=== PATIENT | male | born 1965 | race Caucasian/White ===

== ENCOUNTER 2021-03-06 08:07 | Outpatient (REF) | payer BC, SELFPAY ==
[2021-03-06 12:57] LABS: Alanine Aminotransferase 23 U/L (0-40); Albumin Level 4.3 g/dL (3.5-5.0); Alkaline Phosphatase 63 U/L (39-117); Anion Gap 10 (12-20); Aspartate Amino Transferase 22 U/L (5-37); Bilirubin Total 0.8 mg/dL (0.0-1.0); Blood Urea Nitrogen 15 mg/dL (9-16); Calcium 9.2 mg/dL (8.4-10.2); Carbon Dioxide 30 mmol/L (22-29); Chloride 101 mmol/L (96-108); Cholesterol 162 mg/dL; Estimated Glomerular Filt Rate > 60; Glucose Fasting 95 mg/dL (60-99); HDL Cholesterol 46 mg/dL; LDL Cholesterol Calculated 106 mg/dl; Potassium 4.4 mmol/L (3.3-5.1); Sodium 137 mmol/L (135-145); Total Protein 7.1 g/dL (6.5-8.0); Triglycerides 52 mg/dL
[2021-03-06 13:21] LABS: TSH reflex Free T4 1.14 uIU/mL (0.32-4.0)
== END 2021-03-06 08:08 | disposition home or self-care (01) ==
LOC: HO.HMGCLDS 08:07
PROVIDERS: PCP Nurse Practitioner Family; Visit Provider Nurse Practitioner Family
DX: R19.7 Diarrhea, unspecified (principal)
CPT/HCPCS: 36415; 80053; 80061; 84443

== ENCOUNTER 2021-06-14 04:18 | Observation (INO) | payer BC, SELFPAY ==
[2021-06-14] VITALS (11 sets, daily range): BP systolic 125–161; BP diastolic 64–91; PULSE 50–75; RESP 12–20; TEMP 36.2–36.7; O2SAT 96–100; BMI 39.0
--- NOTE | ~2021-06-14 | CT_ITS ---
EXAMINATION: CT ANGIOGRAM OF THE CHEST, ABDOMEN, AND PELVIS INDICATION: Severe pain, history of hypertension COMPARISON: Chest x-ray 10/14/2018 TECHNIQUE: 85 mL Omnipaque 350 IV contrast was utilized. Multidetector helical imaging was performed through the chest, abdomen, and pelvis per CTA protocol. Coronal and sagittal reformatted images were created at the technologist workstation. MIP images were also created. DLP: 1081 mGy-cm DOSE LOWERING TECHNIQUES: This CT examination was performed using dose optimization techniques as appropriate, variously including the following: - Automated exposure control - Adjustment of mA and/or kV according to patient size (this includes techniques or standardized protocols for targeted exams were dose is matched to indication/reason for exam; i.e. extremities or head) - Use of iterative reconstruction technique FINDINGS: Chest: No evidence of aortic dissection. Some motion artifact is noted at the aortic root. The thoracic aorta appears normal in caliber. No regions of consolidation bilaterally. No pneumothorax or pleural effusion. The visualized thyroid gland is unremarkable. There are subcentimeter mediastinal lymph nodes within the range of normal variation. Cardiac size is within normal limits; no pericardial effusion. No central pulmonary embolus identified. No axillary lymphadenopathy is present. Abdomen/Pelvis: Normal caliber aorta without evidence of dissection. Bilateral iliac artery vasculature is widely patent. The celiac, superior mesenteric, bilateral renal, and inferior mesenteric arteries are patent. The liver is homogeneous in attenuation without intrahepatic biliary ductal dilatation. Cholelithiasis is noted. The spleen, pancreas, and adrenal glands are within normal limits. Bilateral nephrograms are symmetric. Bilateral renal cysts are noted measuring up to 5.3 cm in the right lower pole. A 2 mm calculus is noted in the mid right kidney. No hydronephrosis. No obstructing ureteral calculi are present. The urinary bladder is unremarkable. The prostate and seminal vesicles are unremarkable. Mild colonic diverticulosis is noted. The small and large bowel are otherwise unremarkable without evidence of obstruction or pericolonic inflammatory change. The appendix is unremarkable. No free fluid or free air is identified. No retroperitoneal or pelvic lymphadenopathy is seen. There is grade 1 anterolisthesis of L4 on L5. There is facet arthropathy of the lower lumbar spine. Scattered endplate osteophytes are present. CT/CT angio abdomen pelvis IMPRESSION: 1. No evidence of aortic dissection. 2. Cholelithiasis. 3. Tiny right renal calculus without hydronephrosis.
[2021-06-14 04:55] LABS: Basophils Percent Auto 0.3 % (0-2); Eosinophils Absolute Auto 0.1 X10*3/uL (0.0-0.4); Hematocrit 47.5 % (42-52); Hemoglobin 16.9 g/dl (14.0-18.0); Imm Gran Abs Auto 0.03 X10*3/uL (0.00-0.03); Imm Gran Pct Auto 0.5 % (0.0-0.4); Lymphocytes Absolute Auto 0.7 X10*3/uL (1.2-4.9); Lymphocytes Percent Auto 12.2 % (20-40); MANUAL DIFF FLAG NO; Mean Corpuscular HGB Conc 35.6 g/dl (31.0-36.0); Mean Corpuscular Hemoglobin 32.6 pg (27.0-33.0); Mean Corpuscular Volume 91.5 fL (80-98); Mean Platelet Volume 9.6 fL (9.4-12.4); Monocytes Absolute Auto 0.5 X10*3/uL (0.1-1.2); Monocytes Percent Auto 8.6 % (2-11); Neutrophils Absolute Auto 4.4 X10*3/uL (2.0-8.3); Neutrophils Percent Auto 77.4 % (45-73); Platelet Count 173 X10*3/uL (160-400); Red Blood Count 5.19 X10*6/uL (4.60-5.80); Red Cell Distribution Width 12.9 % (11.0-16.0); White Blood Count 5.7 X10*3/uL (4.8-10.8)
[2021-06-14] MEDS: ondansetron HCL 4 MG/2 ML VIAL IVPUSH ×2 (04:55→08:18)
[2021-06-14 05:09] LABS: COVID-19 Test Negative (Negative); IDNOW Serial# 9DD0AD1C
--- NOTE | 2021-06-14 05:09 | ED.ABDPAIN ---
HPI - Abdominal Pain General Chief Complaint: Nausea/Vomiting/Diarrhea Stated Complaint: Chest pain/abd pain Time Seen by Provider: 06/14/21 05:01 Source: patient Mode of arrival: EMS History of Present Illness HPI narrative: 56-year-old male with history of hypertension and thyroid condition is brought in with being awoken from sleep with severe mid to upper left abdominal pain with radiation into the back and into the left chest that started approximately 1:00 a.m.. Patient states that the pain has worsened and he has now developed nausea with vomiting as well as shortness of breath. Patient denies any recent procedures or changes in medication and states that he did have some mild back discomfort approximately 2 days ago. He denies any pain/numbness/tingling into either lower extremity as well as denying any upper extremity symptoms. Related Data Home Medications Medication Instructions Recorded Confirmed amlodipine 5 mg tablet 1 tab PO DAILY 06/14/21 06/14/21 levothyroxine 175 mcg tablet 1 tab PO DAILY 06/14/21 06/14/21 lisinopril 40 mg tablet 1 tab PO DAILY 06/14/21 06/14/21 omeprazole 40 mg capsule,delayed 1 cap PO DAILY 06/14/21 06/14/21 release testosterone 20 mg TOPICAL DAILY 06/14/21 06/14/21 Allergies Allergy/AdvReac Type Severity Reaction Status Date / Time No Known Allergies Allergy Verified 06/14/21 04:24 Review of Systems Review of Systems Pertinent positives and negatives as stated in HPI 10 point review systems is otherwise negative. Physical Exam Vital Signs: Vital Signs: Last Vital Signs Temp 97.9 F 06/14/21 07:32 Pulse 50 06/14/21 07:32 Resp 16 06/14/21 07:32 BP 144/66 H 06/14/21 07:32 Pulse Ox 96 06/14/21 07:32 Body Mass Index 39.0 VITAL SIGNS: Reviewed. GENERAL: Well developed, well nourished, in no acute distress. HEAD: Normocephalic/atraumatic EYES: PERRLA, EOMI OROPHARYNX: no oral lesions noted, posterior pharynx clear NECK: Supple, no adenopathy LUNGS: Normal breath sounds. No adventitious sounds or accessory muscle use. SpO2<100> CARDIOVASCULAR: Regular rate and rhythm without noted murmurs, no JVD or lower extremity edema, symmetrical pulses at radial/ulnar, femoral, DP/PT ABDOMEN: Obese, exam limited by body habitus, Soft, mid abdominal tenderness without rebound, non-distended with bowel sounds. MUSCULOSKELETAL: No tenderness, deformities, or effusions noted on gross inspection. EXTREMITIES: No cyanosis, clubbing or edema, significant bilateral lower extremity varicosity without erythema or asymmetry SKIN: Inspection of the skin reveals no rashes NEUROLOGIC: Alert and oriented x 4. Strength and sensation to light touch were grossly intact x 4. Course Course Course Narrative: 56-year-old male with history and clinical presentation suggestive of possible pancreatic etiology, but given history and current symptoms of pain with radiation to the left chest will emergently evaluate for evidence of dissection although patient is noted to have symmetrical blood pressures and although blood pressure is elevated it is not noted to be significantly elevated. Review of all investigations without acute findings other than nonobstructing kidney stone without hydronephrosis and repeat EKG remains unchanged, patient continues to require additional pain medication despite receiving GI cocktail as well as lidocaine patch for the back pain. Discussed with inpatient hospitalist who accepts admission. MDM - Abdominal Pain Lab Data Result diagrams: 06/14/21 04:47 06/14/21 04:47 Labs: Lab Results 06/14/21 06/14/21 06/14/21 Range/Units 04:47 04:47 04:47 WBC 5.7 (4.8-10.8) X10*3/uL RBC 5.19 (4.60-5.80) X10*6/uL Hgb 16.9 (14.0-18.0) g/dl Hct 47.5 (42-52) % MCV 91.5 (80-98) fL MCH 32.6 (27.0-33.0) pg MCHC 35.6 (31.0-36.0) g/dl RDW 12.9 (11.0-16.0) % Plt Count 173 (160-400) X10*3/uL MPV 9.6 (9.4-12.4) fL Immature Gran % (Auto) 0.5 H (0.0-0.4) % Neut % (Auto) 77.4 H (45-73) % Lymph % (Auto) 12.2 L (20-40) % [place] % (Auto) 8.6 (2-11) % Eos % (Auto) 1.0 (0-4) % Baso % (Auto) 0.3 (0-2) % Lymph # (Auto) 0.7 L (1.2-4.9) X10*3/uL [place] # (Auto) 0.5 (0.1-1.2) X10*3/uL Eos # (Auto) 0.1 (0.0-0.4) X10*3/uL Baso # (Auto) 0.0 (0.0-0.2) X10*3/uL Abs Immat Gran (auto) 0.03 (0.00-0.03) X10*3/uL Absolute Neuts (auto) 4.4 (2.0-8.3) X10*3/uL Absolute Nucleated RBC 0.000 (0.0-0.012) X10*3/uL Nucleated RBC % (auto) 0.0 (0.0-0.2) /100WBC Sodium 136 (135-145) mmol/L Potassium 4.3 (3.3-5.1) mmol/L Chloride 101 (96-108) mmol/L Carbon Dioxide 22 (22-29) mmol/L Anion Gap 17 (12-20) BUN 13 (9-16) mg/dL Creatinine 1.30 (0.5-1.4) mg/dL Estim Creat Clear Calc 85.1 Estimated GFR 57 Random Glucose 156 H (60-115) mg/dL Lactic Acid (0.5-2.0) mmol/L Lactic Acid Fup @ 2Hr (0.5-2.0) mmol/L Calcium 9.8 D (8.4-10.2) mg/dL Total Bilirubin 0.7 (0.0-1.0) mg/dL Direct Bilirubin 0.3 (0.0-0.5) mg/dL AST 21 (5-37) U/L ALT 24 (0-40) U/L Alkaline Phosphatase 75 (39-117) U/L Troponin I High Sens 7.0 (<3.5-35.0) ng/L Total Protein 7.9 (6.5-8.0) g/dL Albumin 4.6 (3.5-5.0) g/dL Lipase 48 (8-78) U/L Urine Color Urine Appearance Urine pH (5.0-8.0) Ur Specific [place] (1.005-1.025) Urine Protein (NEG-TRACE) MG/DL Urine Glucose (UA) (NEG) MG/DL Urine Ketones (NEG) MG/DL Urine Blood (NEG) Urine Nitrite (NEG) Ur Leukocyte Esterase (NEG) COVID-19 ([facility]) (Negative) COVID-19 Clin Com 06/14/21 06/14/21 06/14/21 Range/Units 04:47 04:47 05:45 WBC (4.8-10.8) X10*3/uL RBC (4.60-5.80) X10*6/uL Hgb (14.0-18.0) g/dl Hct (42-52) % MCV (80-98) fL MCH (27.0-33.0) pg MCHC (31.0-36.0) g/dl RDW (11.0-16.0) % Plt Count (160-400) X10*3/uL MPV (9.4-12.4) fL Immature Gran % (Auto) (0.0-0.4) % Neut % (Auto) (45-73) % Lymph % (Auto) (20-40) % [place] % (Auto) (2-11) % Eos % (Auto) (0-4) % Baso % (Auto) (0-2) % Lymph # (Auto) (1.2-4.9) X10*3/uL [place] # (Auto) (0.1-1.2) X10*3/uL Eos # (Auto) (0.0-0.4) X10*3/uL Baso # (Auto) (0.0-0.2) X10*3/uL Abs Immat Gran (auto) (0.00-0.03) X10*3/uL Absolute Neuts (auto) (2.0-8.3) X10*3/uL Absolute Nucleated RBC (0.0-0.012) X10*3/uL Nucleated RBC % (auto) (0.0-0.2) /100WBC Sodium (135-145) mmol/L Potassium (3.3-5.1) mmol/L Chloride (96-108) mmol/L Carbon Dioxide (22-29) mmol/L Anion Gap (12-20) BUN (9-16) mg/dL Creatinine (0.5-1.4) mg/dL Estim Creat Clear Calc Estimated GFR Random Glucose (60-115) mg/dL Lactic Acid 3.2 H* (0.5-2.0) mmol/L Lactic Acid Fup @ 2Hr (0.5-2.0) mmol/L Calcium (8.4-10.2) mg/dL Total Bilirubin (0.0-1.0) mg/dL Direct Bilirubin (0.0-0.5) mg/dL AST (5-37) U/L ALT (0-40) U/L Alkaline Phosphatase (39-117) U/L Troponin I High Sens (<3.5-35.0) ng/L Total Protein (6.5-8.0) g/dL Albumin (3.5-5.0) g/dL Lipase (8-78) U/L Urine Color YELLOW Urine Appearance CLEAR Urine pH 7.5 (5.0-8.0) Ur Specific [place] 1.010 (1.005-1.025) Urine Protein TRACE (NEG-TRACE) MG/DL Urine Glucose (UA) NEG (NEG) MG/DL Urine Ketones 15 (NEG) MG/DL Urine Blood NEG (NEG) Urine Nitrite NEG (NEG) Ur Leukocyte Esterase NEG (NEG) COVID-19 ([facility]) Negative (Negative) COVID-19 Clin Com See Note 06/14/21 Range/Units 07:15 WBC (4.8-10.8) X10*3/uL RBC (4.60-5.80) X10*6/uL Hgb (14.0-18.0) g/dl Hct (42-52) % MCV (80-98) fL MCH (27.0-33.0) pg MCHC (31.0-36.0) g/dl RDW (11.0-16.0) % Plt Count (160-400) X10*3/uL MPV (9.4-12.4) fL Immature Gran % (Auto) (0.0-0.4) % Neut % (Auto) (45-73) % Lymph % (Auto) (20-40) % [place] % (Auto) (2-11) % Eos % (Auto) (0-4) % Baso % (Auto) (0-2) % Lymph # (Auto) (1.2-4.9) X10*3/uL [place] # (Auto) (0.1-1.2) X10*3/uL Eos # (Auto) (0.0-0.4) X10*3/uL Baso # (Auto) (0.0-0.2) X10*3/uL Abs Immat Gran (auto) (0.00-0.03) X10*3/uL Absolute Neuts (auto) (2.0-8.3) X10*3/uL Absolute Nucleated RBC (0.0-0.012) X10*3/uL Nucleated RBC % (auto) (0.0-0.2) /100WBC Sodium (135-145) mmol/L Potassium (3.3-5.1) mmol/L Chloride (96-108) mmol/L Carbon Dioxide (22-29) mmol/L Anion Gap (12-20) BUN (9-16) mg/dL Creatinine (0.5-1.4) mg/dL Estim Creat Clear Calc Estimated GFR Random Glucose (60-115) mg/dL Lactic Acid (0.5-2.0) mmol/L Lactic Acid Fup @ 2Hr 3.3 H* (0.5-2.0) mmol/L Calcium (8.4-10.2) mg/dL Total Bilirubin (0.0-1.0) mg/dL Direct Bilirubin (0.0-0.5) mg/dL AST (5-37) U/L ALT (0-40) U/L Alkaline Phosphatase (39-117) U/L Troponin I High Sens (<3.5-35.0) ng/L Total Protein (6.5-8.0) g/dL Albumin (3.5-5.0) g/dL Lipase (8-78) U/L Urine Color Urine Appearance Urine pH (5.0-8.0) Ur Specific [place] (1.005-1.025) Urine Protein (NEG-TRACE) MG/DL Urine Glucose (UA) (NEG) MG/DL Urine Ketones (NEG) MG/DL Urine Blood (NEG) Urine Nitrite (NEG) Ur Leukocyte Esterase (NEG) COVID-19 ([facility]) (Negative) COVID-19 Clin Com ECG Data Attestation: I personally reviewed and interpreted this ECG as follows: Prior ECG tracings: not available for review Interpretation: Normal sinus rhythm, HR -72, no STEMI, SC/QRS/QTC are within normal limits. Discharge Plan Discharge Clinical Impression: Intractable abdominal pain, Nausea & vomiting, Acidosis, lactic Patient Disposition: Admitted As Inpatient [facility] Past Medical History Source: nursing notes reviewed Medical History Hypertension Hypogonadism Hypothyroid CANDY (obstructive sleep apnea) Social History Social History Alcohol intake: current Alcohol intake frequency: a few times a week Patient Tobacco Use Status: Never used Tobacco Use of substances other than those prescribed or required for medical reasons: No Advance Directives: No Advance Directives Information Provided: Yes
[2021-06-14 05:11] LABS: Lactic Acid 3.2 mmol/L (0.5-2.0)
[2021-06-14] MEDS: fentaNYL citrate/PF 100 MCG/2 ML VIAL 25 MCG IVPUSH (05:13)
[2021-06-14 05:22] LABS: Alanine Aminotransferase 24 U/L (0-40); Albumin Level 4.6 g/dL (3.5-5.0); Alkaline Phosphatase 75 U/L (39-117); Anion Gap 17 (12-20); Aspartate Amino Transferase 21 U/L (5-37); Bilirubin Direct 0.3 mg/dL (0.0-0.5); Bilirubin Total 0.7 mg/dL (0.0-1.0); Blood Urea Nitrogen 13 mg/dL (9-16); Calcium 9.8 mg/dL (8.4-10.2); Carbon Dioxide 22 mmol/L (22-29); Chloride 101 mmol/L (96-108); Creatinine Clr Calc Pharmacy 85.1; Estimated Glomerular Filt Rate 57; Glucose Random 156 mg/dL (60-115); Lipase 48 U/L (8-78); Potassium 4.3 mmol/L (3.3-5.1); Sodium 136 mmol/L (135-145); Total Protein 7.9 g/dL (6.5-8.0)
--- NOTE | 2021-06-14 05:35 | PC.NURSE ---
Pt to ED CT on painter and grader cork with this RN. CT images obtained; pt vomited x [address] room. Pt returned to room and returned to bedside cardiac monitoring by this RN without incidence. Pt continues to c/o pain 05/28, Dr Delgadillo to be made aware.
[2021-06-14] MEDS: iohexoL 350 MG/ML 100 ML INFUS..BTL 85 ML IV (05:47)
[2021-06-14 06:01] LABS: Appearance Urine CLEAR; Color Urine YELLOW; Glucose Urine UA NEG (NEG); Leukocyte Esterase Urine NEG (NEG); Nitrite Urine NEG (NEG); PH 7.5 (5.0-8.0); Urine Blood NEG (NEG); Urine Ketones 15 MG/DL (NEG); Urine Protein TRACE MG/DL (NEG-TRACE)
[2021-06-14] MEDS: Ketorolac Tromethamine 15 MG/ML VIAL IVPUSH (06:02)
--- NOTE | 2021-06-14 06:22 | PC.NURSE ---
Pt rang call calli. This RN to bedside. Pt requesting to use urinal. urinal provided. Pt also reporting the meds didn't work, appears uncomfortable. Dr Delgadillo made aware.
[2021-06-14 06:53] LABS: Reflex Lactate? Lactic Acid Added
[2021-06-14] MEDS: Lidocaine HCl Viscous 2 % 15 ML SOLUTION 10 ML MUCOUS MEM (07:10)
[2021-06-14] MEDS: Lidocaine 4 % Patch ADH..PATCH 1 PATCH TRANSDERMA (07:10)
[2021-06-14] MEDS: Magnesium Hydrox/Alum Hydrox 30 ML ORAL.SUSP PO (07:10)
[2021-06-14 07:50] LABS: ~Lactic Acid-LAB USE ONLY 3.3 mmol/L (0.5-2.0)
--- NOTE | 2021-06-14 07:54 | ECG_ITS ---
Test Reason : VOMITTING,ABD PAIN Blood Pressure : / mmHG Vent. Rate : 072 BPM Atrial Rate : 072 BPM P-R Int : 172 ms QRS Dur : 104 ms QT Int : 394 ms P-R-T Axes : 066 006 058 degrees QTc Int : 431 ms Sinus rhythm with occasional Premature ventricular complexes Otherwise normal ECG No previous ECGs available Referred By: Katlin Delgadillo Electronically Signed By:TORITO HEATH
[2021-06-14] MEDS: 0.9 % Sodium Chloride 1,000 ML 999 ML IV (08:09)
--- NOTE | 2021-06-14 08:33 | ECG_ITS ---
Test Reason : VOMITING Blood Pressure : / mmHG Vent. Rate : 065 BPM Atrial Rate : 065 BPM P-R Int : 174 ms QRS Dur : 102 ms QT Int : 406 ms P-R-T Axes : 058 -08 056 degrees QTc Int : 422 ms Sinus rhythm with occasional Premature ventricular complexes Otherwise normal ECG When compared with ECG of 14-JUN-2021 04:31, No significant change was found Referred By: Katlin Delgadillo Electronically Signed By:TORITO HEATH
[2021-06-14] MEDS: HYDROmorphone HCl 0.5 MG/0.5 ML SYRINGE IVPUSH (09:08)
[2021-06-14 09:15] LABS: Troponin-I High Sensitivity 6.8 ng/L (<3.5-35.0)
[2021-06-14 09:18] LABS: Reflex Lactate? 2 Y
[2021-06-14 10:38] LABS: ~Lactic Acid-LAB USE ONLY 1.8 mmol/L (0.5-2.0)
[2021-06-14 12:59] LABS: Amphetamine Screen Urine Not Detected (Not Detect); Barbiturates, Urine Not Detected (Not Detect); Benzodiazepines Screen Urine Not Detected (Not Detect); Cannabinoid Screen Urine Not Detected (Not Detect); Cocaine Screen Urine Not Detected (Not Detect); Fentanyl, urine Not Detected (Not Detect); Opiate Screen Urine Not Detected (Not Detect); Phencyclidine Screen Urine Not Detected (Not Detect)
--- NOTE | 2021-06-14 13:00 | P.HPHOSP_ITS ---
History of Present Illness Date of Service: 06/14/21 Chief Complaint: Abdominal pain, vomiting A 56 years old male with PMH of HTN and hypothyroidism came to the hospital for evaluation of abdominal pain associated with nausea and vomiting. The patient reported he was awaken up during the sleep with severe pain on the left side of his abdomen radiating to his back and going up to his chest wall associated with nausea and dry heaving. He could not tolerate the pain my see came to the emergency were he was evaluated with blood test and imaging. He reports this is the 1st time this is happening to him. He reports having chronic left-sided back pain. He denies any fever, chills, added, difficulty breathing, cough, urinary symptoms or change in bowel habit In the emergency CTA of chest, abdomen pelvis were negative for any acute findings to suggest a pain but reported small kidney stone with no hydronep hrosis or obstruction. His symptoms were controlled with IV medication with fair response. To be ad mitted for further evaluation and management. Review of Systems Review of Systems: No fever, chills or weakness No chest pain, palpitation No shortness of breath or coughing Lower and left-sided abdominal pain, associated with nausea or vomiting No urinary symptoms No any rash or wounds PMFSH Medical History Hypertension Hypogonadism Hypothyroid CANDY (obstructive sleep apnea) Social History Alcohol intake: current Alcohol intake frequency: a few times a week Patient Tobacco Use Status: Never used Tobacco Use of substances other than those prescribed or required for medical reasons: No Advance Directives: No Advance Directives Information Provided: Yes Meds Allergies Allergy/AdvReac Type Severity Reaction Status Date / Time No Known Allergies Allergy Verified 06/14/21 04:24 Active Medications: Current Medications Generic Name Dose Route Start Last Admin Trade Name Freq PRN Reason Stop Dose Admin Acetaminophen 650 mg 06/14/21 12:55 Acetaminophen 325 Mg Tablet PO Q6H PRN Pain, Mild (Pain Scale 1-3) Amlodipine Besylate 5 mg 06/15/21 09:00 Amlodipine Besylate 5 Mg Tablet PO DAILY [facility] Protocol Dextrose/Sodium Chloride 1,000 mls @ 100 mls/hr 06/14/21 13:00 D5ns IVCONT 06/15/21 08:59 .Q10H [facility] Ketorolac Tromethamine 30 mg 06/14/21 12:55 Ketorolac Tromethamine 30 Mg/Ml Vial IVPUSH 06/19/21 12:54 Q6H PRN Pain, Moderate (Pain Scale 4-6 Levothyroxine Sodium 175 mcg 06/15/21 09:00 Levothyroxine Sodium 175 Mcg Tablet PO DAILY [facility] Lisinopril 40 mg 06/15/21 09:00 Lisinopril 40 Mg Tablet PO DAILY [facility] Protocol Morphine Sulfate 4 mg 06/14/21 12:55 Morphine Sulfate 4 Mg/Ml Cartridge IVPUSH Q4H PRN Pain, Severe (Pain Scale 7-10) Protocol Omeprazole 40 mg 06/15/21 09:00 Omeprazole 40 Mg Capsule.Dr PO DAILY [facility] Ondansetron HCl 4 mg 06/14/21 12:55 Ondansetron Hcl 4 Mg/2 Ml Vial IVPUSH Q8H PRN Nausea and Vomiting Rivaroxaban 10 mg 06/15/21 09:00 Rivaroxaban 10 Mg Tablet PO DAILY [facility] Sodium Chloride 3 ml 06/14/21 16:00 0.9 % Sodium Chloride Flush 3 Ml Syringe IVFLUSH QSNDFT [facility] Home Medications Medication Instructions Recorded Confirmed Last Taken Type amlodipine 5 mg tablet 1 tab PO DAILY 06/14/21 06/14/21 Unknown History levothyroxine 175 mcg tablet 1 tab PO DAILY 06/14/21 06/14/21 Unknown History lisinopril 40 mg tablet 1 tab PO DAILY 06/14/21 06/14/21 Unknown History omeprazole 40 mg capsule,delayed 1 cap PO DAILY 06/14/21 06/14/21 Unknown History release testosterone 20 mg TOPICAL DAILY 06/14/21 06/14/21 Unknown History Physical Exam Vital Signs and Narrative: Vital Signs: Last Vital Signs Temp 97.9 F 06/14/21 07:32 Pulse 68 06/14/21 09:07 Resp 18 06/14/21 09:07 BP 158/90 H 06/14/21 09:07 Pulse Ox 100 06/14/21 09:07 Body Mass Index 39.0 Const: Other: Constitutional : Alert, oriented, not in distress Neck : Normal inspection, Supple Cardiovascular : RRR, S1 S2, no lower extremity edema Respiratory : Good bilateral air entry, no crackles, wheezes or rhonchi Gastrointestinal: soft, lax, Normal bowel sounds, mild generalized tenderness with deep palpation, no surgical signs, negative McBurney and Sun signs. Skin : Warm, Dry Neurological : Alert & oriented x3, No focal deficit Results Labs CBC and Chem 7: 06/14/21 04:47 06/14/21 04:47 Labs: Laboratory Results - last 24 hr 06/14/21 06/14/21 06/14/21 04:47 04:47 04:47 MCV 91.5 MCH 32.6 MCHC 35.6 RDW 12.9 Plt Count 173 MPV 9.6 Immature Gran % (Auto) 0.5 H Neut % (Auto) 77.4 H Lymph % (Auto) 12.2 L [place] % (Auto) 8.6 Eos % (Auto) 1.0 Baso % (Auto) 0.3 Lymph # (Auto) 0.7 L [place] # (Auto) 0.5 Eos # (Auto) 0.1 Baso # (Auto) 0.0 Abs Immat Gran (auto) 0.03 Absolute Neuts (auto) 4.4 Absolute Nucleated RBC 0.000 Nucleated RBC % (auto) 0.0 Anion Gap 17 Estim Creat Clear Calc 85.1 Estimated GFR 57 Random Glucose 156 H Lactic Acid Lactic Acid Fup @ 2Hr Lactic Acid Fup @ 4Hr Calcium 9.8 D Total Bilirubin 0.7 Direct Bilirubin 0.3 AST 21 ALT 24 Alkaline Phosphatase 75 Troponin I High Sens 7.0 Total Protein 7.9 Albumin 4.6 Lipase 48 Urine Color Urine Appearance Urine pH Ur Specific [place] Urine Protein Urine Glucose (UA) Urine Ketones Urine Blood Urine Nitrite Ur Leukocyte Esterase Urine Opiates Screen Urine Fentanyl Screen Ur Barbiturates Screen Ur Phencyclidine Scrn Ur Amphetamines Screen U Benzodiazepines Scrn Urine Cocaine Screen U Marijuana (THC) Screen COVID-19 ([facility]) COVID-19 Clin Com 06/14/21 06/14/21 06/14/21 04:47 04:47 05:45 MCV MCH MCHC RDW Plt Count MPV Immature Gran % (Auto) Neut % (Auto) Lymph % (Auto) [place] % (Auto) Eos % (Auto) Baso % (Auto) Lymph # (Auto) [place] # (Auto) Eos # (Auto) Baso # (Auto) Abs Immat Gran (auto) Absolute Neuts (auto) Absolute Nucleated RBC Nucleated RBC % (auto) Anion Gap Estim Creat Clear Calc Estimated GFR Random Glucose Lactic Acid 3.2 H* Lactic Acid Fup @ 2Hr Lactic Acid Fup @ 4Hr Calcium Total Bilirubin Direct Bilirubin AST ALT Alkaline Phosphatase Troponin I High Sens Total Protein Albumin Lipase Urine Color YELLOW Urine Appearance CLEAR Urine pH 7.5 Ur Specific [place] 1.010 Urine Protein TRACE Urine Glucose (UA) NEG Urine Ketones 15 Urine Blood NEG Urine Nitrite NEG Ur Leukocyte Esterase NEG Urine Opiates Screen Urine Fentanyl Screen Ur Barbiturates Screen Ur Phencyclidine Scrn Ur Amphetamines Screen U Benzodiazepines Scrn Urine Cocaine Screen U Marijuana (THC) Screen COVID-19 ([facility]) Negative COVID-19 Clin Com See Note 06/14/21 06/14/21 06/14/21 05:45 07:15 08:43 MCV MCH MCHC RDW Plt Count MPV Immature Gran % (Auto) Neut % (Auto) Lymph % (Auto) [place] % (Auto) Eos % (Auto) Baso % (Auto) Lymph # (Auto) [place] # (Auto) Eos # (Auto) Baso # (Auto) Abs Immat Gran (auto) Absolute Neuts (auto) Absolute Nucleated RBC Nucleated RBC % (auto) Anion Gap Estim Creat Clear Calc Estimated GFR Random Glucose Lactic Acid Lactic Acid Fup @ 2Hr 3.3 H* Lactic Acid Fup @ 4Hr Calcium Total Bilirubin Direct Bilirubin AST ALT Alkaline Phosphatase Troponin I High Sens 6.8 Total Protein Albumin Lipase Urine Color Urine Appearance Urine pH Ur Specific [place] Urine Protein Urine Glucose (UA) Urine Ketones Urine Blood Urine Nitrite Ur Leukocyte Esterase Urine Opiates Screen Not Detected Urine Fentanyl Screen Not Detected Ur Barbiturates Screen Not Detected Ur Phencyclidine Scrn Not Detected Ur Amphetamines Screen Not Detected U Benzodiazepines Scrn Not Detected Urine Cocaine Screen Not Detected U Marijuana (THC) Screen Not Detected COVID-19 ([facility]) COVID-19 Clin Com 06/14/21 10:06 MCV MCH MCHC RDW Plt Count MPV Immature Gran % (Auto) Neut % (Auto) Lymph % (Auto) [place] % (Auto) Eos % (Auto) Baso % (Auto) Lymph # (Auto) [place] # (Auto) Eos # (Auto) Baso # (Auto) Abs Immat Gran (auto) Absolute Neuts (auto) Absolute Nucleated RBC Nucleated RBC % (auto) Anion Gap Estim Creat Clear Calc Estimated GFR Random Glucose Lactic Acid Lactic Acid Fup @ 2Hr Lactic Acid Fup @ 4Hr 1.8 Calcium Total Bilirubin Direct Bilirubin AST ALT Alkaline Phosphatase Troponin I High Sens Total Protein Albumin Lipase Urine Color Urine Appearance Urine pH Ur Specific [place] Urine Protein Urine Glucose (UA) Urine Ketones Urine Blood Urine Nitrite Ur Leukocyte Esterase Urine Opiates Screen Urine Fentanyl Screen Ur Barbiturates Screen Ur Phencyclidine Scrn Ur Amphetamines Screen U Benzodiazepines Scrn Urine Cocaine Screen U Marijuana (THC) Screen COVID-19 ([facility]) COVID-19 Clin Com Imaging Radiologist's Impressions: Impressions Abdomen/Pelvis CTA 06/14/21 05:01 IMPRESSION: 1. No evidence of aortic dissection. 2. Cholelithiasis. 3. Tiny right renal calculus without hydronephrosis. Chest CTA 06/14/21 05:01 IMPRESSION: 1. No evidence of aortic dissection. 2. Cholelithiasis. 3. Tiny right renal calculus without hydronephrosis. Assessment and Plan (1) Intractable abdominal pain: Status: Acute (2) Nausea & vomiting: Status: Acute (3) Acidosis, lactic: Status: Acute A 56 years old male with PMH of HTN and hypothyroidism came to the hospital for evaluation of abdominal pain associated with nausea and vomiting. Abdominal pain Intractable nausea and vomiting No clear reason identified Images negative for any acute findings, as a small stone in the right kidney could be possibly secondary to passing stone Advanced diet as tolerated Pain medication as needed Collect urine in case he passed a stone Lactic acidosis Likely secondary to dehydration and vomiting corrected with IV fluids Keep on gentle hydration for today HTN continue home medications DVT PPX Xarelto Quality Stroke Does the patient have a stroke diagnosis?: No VTE Prior VTE?: No VTE Risk Level:: Medical - moderate - high VTE Device Contraindication: Treatment Not Indicated VTE Drug Contraindication: N/A - Med Ordered
[2021-06-14] MEDS: Metoclopramide HCl 5 MG TABLET PO ×2 (16:43→21:12)
[2021-06-14] MEDS: Dextrose 5 % and 0.9 % NaCl 1,000 ML 100 ML IVCONT (16:45)
[2021-06-14] MEDS: 0.9 % Sodium Chloride Flush 3 ML SYRINGE IVFLUSH (16:54)
[2021-06-14] MEDS: Ketorolac Tromethamine 30 MG/ML VIAL IVPUSH (17:03)
[2021-06-14] MEDS: Acetaminophen 325 MG TABLET 650 MG PO (21:13)
[2021-06-15] MEDS: Dextrose 5 % and 0.9 % NaCl 1,000 ML 100 ML IVCONT (02:10)
[2021-06-15] MEDS: Levothyroxine Sodium 175 MCG TABLET PO (05:48)
[2021-06-15] MEDS: Omeprazole 40 MG CAPSULE.DR PO (05:48)
[2021-06-15 07:26] VITALS: BP 183/80; PULSE 58; RESP 20; TEMP 36.9; O2SAT 99
[2021-06-15 07:28] LABS: Anion Gap 9 (12-20); Blood Urea Nitrogen 9 mg/dL (9-16); Calcium 8.5 mg/dL (8.4-10.2); Carbon Dioxide 28 mmol/L (22-29); Chloride 104 mmol/L (96-108); Creatinine Clr Calc Pharmacy 115.2; Estimated Glomerular Filt Rate > 60; Glucose Random 126 mg/dL (60-115); Potassium 4.3 mmol/L (3.3-5.1); Sodium 137 mmol/L (135-145)
[2021-06-15 07:47] VITALS: BP 127/83
[2021-06-15 08:26] VITALS: BP 127/83; PULSE 58
[2021-06-15] MEDS: Rivaroxaban 10 MG TABLET PO (08:26)
[2021-06-15] MEDS: 0.9 % Sodium Chloride Flush 3 ML SYRINGE IVFLUSH (08:26)
[2021-06-15] MEDS: lisinopriL 40 MG TABLET PO (08:26)
[2021-06-15] MEDS: amLODIPine Besylate 5 MG TABLET PO (08:26)
[2021-06-15] MEDS: Metoclopramide HCl 5 MG TABLET PO (08:26)
--- NOTE | 2021-06-15 11:11 | P.DS_ITS ---
DS: Providers Provider Date of Service: 06/15/21 Date of admission: 06/14/21 12:53 Primary care physician: Unknown Physician DS: Diagnosis Discharge Diagnosis (1) Intractable abdominal pain: Status: Acute (2) Nausea & vomiting: Status: Acute (3) Acidosis, lactic: Status: Acute DS: Medications Discharge Medications Home Medications: Home Medications Medication Instructions Recorded Confirmed amlodipine 5 mg tablet 1 tab PO DAILY 06/14/21 06/14/21 levothyroxine 175 mcg tablet 1 tab PO DAILY 06/14/21 06/14/21 lisinopril 40 mg tablet 1 tab PO DAILY 06/14/21 06/14/21 omeprazole 40 mg capsule,delayed 1 cap PO DAILY 06/14/21 06/14/21 release testosterone 20 mg TOPICAL DAILY 06/14/21 06/14/21 Previous Rx's Medication Instructions Recorded metoclopramide HCl 5 mg tablet 5 mg PO QIDACHS PRN #14 tab 06/15/21 DS: Summary Hospital Course Hospital Course: Admission note HPI A 56 years old male with PMH of HTN and hypothyroidism came to the hospital for evaluation of abdominal pain associated with nausea and vomiting. The patient reported he was awaken up during the sleep with severe pain on the left side of his abdomen radiating to his back and going up to his chest wall associated with nausea and dry heaving.? He could not tolerate the pain my see came to the emergency were he was evaluated with blood test and imaging.? He reports this is the 1st time this is happening to him.? He reports having chroni c left-sided back pain.? He denies any fever, chills, added, difficulty breathing, cough, urinary symptoms or change in bowel habit In the emergency CTA of chest, abdomen pelvis were negative for any acute findings to suggest a pain but reported small kidney stone with no hydronephrosis or obstruction. His symptoms were controlled with IV medication with fair response.? To be admitted for further evaluation and management. Hospital course Patient was admitted through emergency for intractable nausea and vomiting associated with abdominal pain. Images for the chest, abdomen pelvis were all negative for any acute findings. Noted a small kidney stone with no obstructive symptoms. No infection was found. Patient started to improve with usage of nausea and pain medication. Pain completely resolved and he was able to tolerate diet. To be discharged home to use Reglan as needed for nausea and ibuprofen for pain next Lyme to follow-up with PCP Time Spent with Patient Time attestation: Total time spent providing and/or coordinating discharge services: Discharge coordination time: Greater than 30 minutes Quality: Stroke Does the patient have a stroke diagnosis?: No Physical Exam Vital Signs: Vital Signs: Last Vital Signs Temp 98.5 F 06/15/21 07:26 Pulse 58 06/15/21 08:26 Resp 20 06/15/21 07:26 BP 127/83 06/15/21 08:26 Pulse Ox 99 06/15/21 07:26 Body Mass Index 39.0 Const: Other: Constitutional : Alert, oriented, not in distress Neck : Normal inspection, Supple Cardiovascular : RRR, S1 S2, no lower extremity edema Respiratory : Good bilateral air entry, no crackles, wheezes or rhonchi Gastrointestinal: soft, lax, Normal bowel sounds, Non tender Skin : Warm, Dry Neurological : Alert & oriented x3, No focal deficit DS: Data Data Completed and Pending Labs on day of discharge: Laboratory Results - last 24 hr 06/14/21 06/15/21 05:45 06:25 Sodium 137 Potassium 4.3 Chloride 104 Carbon Dioxide 28 Anion Gap 9 L BUN 9 Creatinine 0.96 Estim Creat Clear Calc 115.2 Estimated GFR > 60 Random Glucose 126 H Calcium 8.5 D Urine Opiates Screen Not Detected Urine Fentanyl Screen Not Detected Ur Barbiturates Screen Not Detected Ur Phencyclidine Scrn Not Detected Ur Amphetamines Screen Not Detected U Benzodiazepines Scrn Not Detected Urine Cocaine Screen Not Detected U Marijuana (THC) Screen Not Detected Preliminary micro results at discharge 06/14/21 05:05 Blood Culture - Preliminary Blood - Venous No growth after 24 hours. 06/14/21 04:47 Blood Culture - Preliminary Blood - Venous No growth after 24 hours. Discharge Plan Discharge Patient Disposition: Home, Self-Care Discharge Diagnosis: Abdominal pain, nausea and vomiting Referrals: Physician,Unknown [Primary Care Provider] - 1 Week Discharge Medications: New metoclopramide HCl 5 mg Tablet 5 mg PO QIDACHS PRN (Reason: nausea and vomiting) Qty: 14 RF: 0 Continued levothyroxine 175 mcg tablet 1 tab PO DAILY RF: 0 amlodipine 5 mg tablet 1 tab PO DAILY RF: 0 omeprazole 40 mg capsule,delayed release(DR/EC) 1 cap PO DAILY RF: 0 lisinopril 40 mg tablet 1 tab PO DAILY RF: 0 testosterone 10 mg/0.5 gram /actuation gel in metered-dose pump 20 mg topical DAILY RF: 0 Discharge Orders: Discharge Order (Routine); Ordered 06/15/21 Ordered By: Yue Grimes Diet: advance to usual diet Activity on Discharge: As tolerated Stand Alone Forms: Patient Portal Discharge page Care Plan Goals: Read below Health Concerns: Read below Plan of Treatment: You were admitted to the hospital for observation of abdominal pain. We believe it could be a result of passing kidney stone. Treated with nausea and pain medications with good response. Assessment: Use Reglan as needed for nausea Use Motrin if needed for pain
--- NOTE | 2021-06-15 12:01 | MHC.CM.PN ---
PT DISCHARGED HOME WITH NO SERVICES PRIOR TO BEING SEEN BY CM. PT SELF ARRANGED TRANSPROTATION
== END 2021-06-15 11:45 | disposition home or self-care (01) ==
LOC: HO.ED 08:54 → HO.EDOVER 13:03 → HO.S3 13:10
PROVIDERS: Admitting Provider Student in an Organized Health Care Education/Training Program; Emergency Provider Student in an Organized Health Care Education/Training Program; Visit Provider Student in an Organized Health Care Education/Training Program
DX: R10.9 Unspecified abdominal pain (principal); R11.2 Nausea with vomiting, unspecified; E87.2 Acidosis; I10 Essential (primary) hypertension; E03.9 Hypothyroidism, unspecified; K80.20 Calculus of gallbladder without cholecystitis without obstruction; N20.0 Calculus of kidney; Z79.899 Other long term (current) drug therapy
CPT/HCPCS: 36415; 71275; 74174; 80048; 80076; 80307; 81003; 83605; 83690; 84484; 85025; 87040; 87635; 93005; 96361; 96365; 96375; 96376; 99218; 99285; J1170; J1885; J2405; J3010; Q9967

== ENCOUNTER 2021-07-01 08:37 | Outpatient (REF) | payer BC, SELFPAY ==
[2021-07-01 11:27] LABS: MANUAL DIFF FLAG NO
[2021-07-01 11:39] LABS: Basophils Percent Auto 0.3 % (0-2); Eosinophils Absolute Auto 0.2 X10*3/uL (0.0-0.4); Eosinophils Percent Auto 3.1 % (0-4); Hematocrit 45.2 % (42-52); Hemoglobin 15.1 g/dl (14.0-18.0); Imm Gran Abs Auto 0.03 X10*3/uL (0.00-0.03); Imm Gran Pct Auto 0.5 % (0.0-0.4); Lymphocytes Percent Auto 15.3 % (20-40); Mean Corpuscular HGB Conc 33.4 g/dl (31.0-36.0); Mean Corpuscular Hemoglobin 31.5 pg (27.0-33.0); Mean Corpuscular Volume 94.4 fL (80-98); Mean Platelet Volume 10.1 fL (9.4-12.4); Monocytes Absolute Auto 0.6 X10*3/uL (0.1-1.2); Monocytes Percent Auto 9.5 % (2-11); Neutrophils Absolute Auto 4.4 X10*3/uL (2.0-8.3); Neutrophils Percent Auto 71.3 % (45-73); Platelet Count 243 X10*3/uL (160-400); Red Blood Count 4.79 X10*6/uL (4.60-5.80); Red Cell Distribution Width 12.8 % (11.0-16.0); White Blood Count 6.2 X10*3/uL (4.8-10.8)
[2021-07-01 12:13] LABS: Alanine Aminotransferase 15 U/L (0-40); Albumin Level 4.1 g/dL (3.5-5.0); Alkaline Phosphatase 66 U/L (39-117); Anion Gap 15 (12-20); Aspartate Amino Transferase 15 U/L (5-37); Bilirubin Total 0.5 mg/dL (0.0-1.0); Blood Urea Nitrogen 13 mg/dL (9-16); Calcium 9.2 mg/dL (8.4-10.2); Carbon Dioxide 28 mmol/L (22-29); Chloride 99 mmol/L (96-108); Estimated Glomerular Filt Rate > 60; Glucose Random 103 mg/dL (60-115); Potassium 4.7 mmol/L (3.3-5.1); Sodium 137 mmol/L (135-145); Total Protein 6.9 g/dL (6.5-8.0)
[2021-07-01 12:26] LABS: Uric Acid 7.3 mg/dL (3.4-7.0)
== END 2021-07-01 08:38 | disposition home or self-care (01) ==
LOC: HO.HMGCLDS 08:37
PROVIDERS: PCP Nurse Practitioner Family; Visit Provider Nurse Practitioner Family
DX: M10.9 Gout, unspecified (principal)
CPT/HCPCS: 36415; 80053; 84550; 85025

== ENCOUNTER 2021-07-30 11:04 | Outpatient (REF) | payer BC, SELFPAY ==
[2021-07-30 13:56] LABS: MANUAL DIFF FLAG NO
[2021-07-30 14:00] LABS: Basophils Percent Auto 0.6 % (0-2); Eosinophils Absolute Auto 0.1 X10*3/uL (0.0-0.4); Eosinophils Percent Auto 2.8 % (0-4); Hematocrit 44.8 % (42-52); Hemoglobin 14.8 g/dl (14.0-18.0); Imm Gran Abs Auto 0.03 X10*3/uL (0.00-0.03); Imm Gran Pct Auto 0.6 % (0.0-0.4); Lymphocytes Absolute Auto 1.2 X10*3/uL (1.2-4.9); Lymphocytes Percent Auto 23.1 % (20-40); Mean Corpuscular Volume 93.9 fL (80-98); Mean Platelet Volume 10.3 fL (9.4-12.4); Monocytes Absolute Auto 0.5 X10*3/uL (0.1-1.2); Monocytes Percent Auto 9.1 % (2-11); Neutrophils Absolute Auto 3.2 X10*3/uL (2.0-8.3); Neutrophils Percent Auto 63.8 % (45-73); Platelet Count 204 X10*3/uL (160-400); Red Blood Count 4.77 X10*6/uL (4.60-5.80); Red Cell Distribution Width 13.3 % (11.0-16.0); White Blood Count 5.1 X10*3/uL (4.8-10.8)
[2021-07-30 14:18] LABS: Alanine Aminotransferase 23 U/L (0-40); Aspartate Amino Transferase 18 U/L (5-37)
[2021-07-30 14:37] LABS: Alanine Aminotransferase 23 U/L (0-40); Albumin Level 4.2 g/dL (3.5-5.0); Alkaline Phosphatase 61 U/L (39-117); Anion Gap 9 (12-20); Aspartate Amino Transferase 19 U/L (5-37); Bilirubin Total 0.2 mg/dL (0.0-1.0); Blood Urea Nitrogen 15 mg/dL (9-16); Carbon Dioxide 30 mmol/L (22-29); Chloride 102 mmol/L (96-108); Estimated Glomerular Filt Rate > 60; Glucose Random 108 mg/dL (60-115); Potassium 4.3 mmol/L (3.3-5.1); Sodium 137 mmol/L (135-145); Total Protein 6.9 g/dL (6.5-8.0); Uric Acid 6.3 mg/dL (3.4-7.0)
[2021-07-30 14:42] LABS: Prostate Specific Antigen 0.33 ng/mL (<0.05-4.0); TSH reflex Free T4 1.35 uIU/mL (0.32-4.0)
[2021-08-03 17:16] LABS: Testosterone, Free 96.4 pg/mL (35.0-155.0); Testosterone, Total 392 ng/dL (250-1100)
== END 2021-07-30 11:05 | disposition home or self-care (01) ==
LOC: HO.HMGCLDS 11:04
PROVIDERS: PCP Nurse Practitioner Family; Visit Provider Internal Medicine Endocrinology, Diabetes & Metabolism
DX: Z12.5 Encounter for screening for malignant neoplasm of prostate (principal); M10.9 Gout, unspecified; E29.1 Testicular hypofunction; E03.9 Hypothyroidism, unspecified
CPT/HCPCS: 36415; 80053; 84153; 84402; 84403; 84443; 84450; 84460; 84550; 85025

== ENCOUNTER 2021-08-21 07:57 | Outpatient (REF) | payer BC, SELFPAY ==
--- NOTE | ~2021-08-21 | US_ITS ---
EXAMINATION: BILATERAL LOWER EXTREMITY VENOUS ULTRASOUND (Reflux Exam) CLINICAL INDICATION: This a 56-year-old male with varicose veins and venous insufficiency. COMPARISON: None. TECHNIQUE: Color flow triplex imaging and compression Doppler was performed to evaluate both the deep and the superficial systems bilaterally. To evaluate the superficial system, the examination was performed in the upright position. Color-flow Doppler ultrasound and compression ultrasound were utilized. In addition, maneuvers were utilized to demonstrate reflux. FINDINGS: 1. DEEP VENOUS ULTRASOUND OF THE RIGHT LOWER EXTREMITY: Common Femoral Vein: Compressible, normal respiratory variation and augmented flow. Femoral vein: Compressible, normal color flow and augmentation. Popliteal Vein: The popliteal vein is compressible but with reflux of 868 ms. Deep Reflux: There is reflux seen in the popliteal vein.. There is no evidence of a Mckeon's cyst. 2. SUPERFICIAL ULTRASOUND WITH DOPPLER OF RIGHT LOWER EXTREMITY GREAT SAPHENOUS VEIN: Saphenofemoral junction: 0.7 cm Mid thigh: Not seen. Above knee: There is saphenous vein is not seen at this level and below. GSV REFLUX: No evidence of reflux. DUPLICATED GREAT SAPHENOUS VEIN: None SMALL SAPHENOUS VEIN: Upper: 0.6 cm Lower: 0.3 cm SSV REFLUX: There is isolated mid calf reflux of 2172 ms. There is not reflux at the junction. VEIN OF GIACOMINI: None Imaged. PERFORATORS: None Imaged VARICOSITIES: There are 0.5 cm varicose veins off the small saphenous vein with reflux of 1224 ms. There is a 0.3 cm varicose vein off the small saphenous vein with greater than 3 seconds of reflux. 3. DEEP VENOUS ULTRASOUND OF THE LEFT LOWER EXTREMITY: Common Femoral Vein: Compressible, normal respiratory variation and augmented flow. Femoral vein: Compressible, normal color flow and augmentation. Popliteal Vein: Compressible, normal augmentation. Deep Reflux: There is no evidence of reflux in the deep system in either the common femoral vein or the popliteal vein. There is no evidence of a Mckeon's cyst. 4. SUPERFICIAL ULTRASOUND WITH DOPPLER OF LEFT LOWER EXTREMITY GREAT SAPHENOUS VEIN: Saphenofemoral junction: 0.9 cm. There is greater than 3 seconds of reflux. Mid thigh: 0.9 cm. There is greater than 3 seconds of reflux. Above knee: 0.8 cm. There is greater than 3 seconds of reflux. Below knee: 0.9 cm. There is greater than 3 seconds of reflux. Mid calf: 0.7 cm. There is greater than 3 seconds of reflux. Ankle: 0.3 cm. There is grade 3 seconds of reflux. GSV REFLUX: There is reflux throughout the great saphenous vein including the saphenofemoral junction. DUPLICATED GREAT SAPHENOUS VEIN: There is a duplicated lateral great saphenous vein measures 0.7 cm at the junction without reflux. SMALL SAPHENOUS VEIN: Upper: 0.8 cm Lower: 0.6 cm SSV REFLUX: No evidence of reflux. VEIN OF GIACOMINI: None Imaged. PERFORATORS: There are 0.2 and 0.5 cm, respectively, small saphenous vein and calf perforators without reflux. VARICOSITIES: There are multiple varicose veins seen in the left leg. Off the small saphenous vein in the calf measures 0.8 cm with 776 ms of reflux. There is a cluster of varicose veins adjacent to the mid small saphenous vein and the great saphenous vein measuring 0.6 cm with 2884 ms of reflux. Varicose veins measuring 0.6 cm the proximal thigh are seen. US/US venous duplex LE BI IMPRESSION: 1. The right great saphenous vein is patent in the proximal thigh but without evidence of reflux. The remainder of the right great saphenous vein is not seen. 2. The right small saphenous vein is patent with isolated reflux in the mid calf but not at the junction. 3. There are varicose veins in the right calf which appear to extend off the small saphenous vein. 4. There is right popliteal vein reflux. Air graft 5. There is a patent left great saphenous vein with reflux throughout the vessel down the leg of greater than 3 seconds. 5. There is a patent left lateral duplicated great saphenous vein without reflux. 7. As a patent left small saphenous vein without reflux. 8. There are perforators and varicose veins in the left leg. The varicose veins demonstrate greater than 3 seconds of reflux.
== END 2021-08-21 07:58 | disposition home or self-care (01) ==
LOC: HO.US 07:57
PROVIDERS: PCP Nurse Practitioner Family; Visit Provider Surgery Vascular Surgery
DX: I83.90 Asymptomatic varicose veins of unspecified lower extremity (principal); I87.2 Venous insufficiency (chronic) (peripheral)
CPT/HCPCS: 93970

== ENCOUNTER → 2021-09-03 09:35 | Outpatient (BNVA) | payer BC, SELFPAY | PROVIDERS: PCP Nurse Practitioner Family; Visit Provider Surgery Vascular Surgery ==

== ENCOUNTER 2021-09-13 07:34 | Outpatient (REF) | payer BC, SELFPAY ==
--- NOTE | ~2021-09-13 | CT_ITS ---
EXAMINATION: CT MAXILLOFACIAL WITHOUT CONTRAST CLINICAL INFORMATION: Chronic congestion. Question polyp. COMPARISON: None. TECHNIQUE: Multidetector helical imaging was performed in the axial plane with generation of coronal and sagittal reformatted images. This CT examination was performed using dose optimization techniques as appropriate, variously including the following: *Automated exposure control *Adjustment of mA and/or kV according to patient size (this includes techniques or standardized protocols for targeted exams where dose is matched to indication/reason for exam; i.e. extremities or head) *Use of iterative reconstruction technique DLP: 115 mGy-cm. FINDINGS: The frontal sinuses are clear superiorly but opacified inferiorly with opacification of both frontoethmoidal recesses. There is mild bilateral ethmoid mucosal thickening. Both sphenoethmoidal recesses are opacified and mild mucosal thickening is present in both sphenoid sinuses. The left maxillary sinus is clear. There is trace mucosal thickening along the right maxillary sinus floor. Nasal septum is bowed towards the right with a leftward projecting septal spur. Bilateral brianna bullosa are noted. The ethmoid roofs are symmetric. The lamina papyracea are intact. There are bilateral brianna bullosa. No maxillary periapical disease is seen. The mastoid air cells and visualized middle ear cavities are well aerated. The orbits are normal. The TMJs are unremarkable. The imaged portions of the brain demonstrate no acute abnormality. CT/CT sinus wo con IMPRESSION: Opacification of the bilateral frontoethmoidal recesses and mild bilateral ethmoid mucosal thickening. Opacification of the bilateral sphenoethmoidal recesses and mild mucosal thickening in both sphenoid sinuses. Trace mucosal thickening along the right maxillary sinus floor. Rightward deviation of the nasal septum with leftward projecting septal spur.
== END 2021-09-13 07:35 | disposition home or self-care (01) ==
LOC: HO.CT 07:34
PROVIDERS: PCP Nurse Practitioner Family; Visit Provider Otolaryngology
DX: J33.9 Nasal polyp, unspecified (principal); R43.0 Anosmia
CPT/HCPCS: 70486

== ENCOUNTER → 2021-10-21 09:59 | Outpatient (REF) | payer BC, SELFPAY | LOC: HO.SL 09:59 | PROVIDERS: PCP Nurse Practitioner Family; Visit Provider Otolaryngology | DX: Z13.89 Encounter for screening for other disorder (principal) ==

== ENCOUNTER → 2021-10-25 10:06 | Outpatient (BNVA) | payer BC, SELFPAY | PROVIDERS: PCP Nurse Practitioner Family; Visit Provider Surgery Vascular Surgery | DX: I83.12 Varicose veins of left lower extremity with inflammation (principal) | CPT/HCPCS: 36475 ==

== ENCOUNTER 2021-10-28 08:17 | Outpatient (REF) | payer BC, SELFPAY ==
--- NOTE | ~2021-10-28 | US_ITS ---
EXAMINATION: US VENOUS ULTRASOUND WITH DOPPLER LOWER EXTREMITY, LEFT CLINICAL INFORMATION: Post RFA left leg COMPARISON: None TECHNIQUE: Ultrasound of the deep veins is performed from the hip to the calf with compression sonography and color and pulse Doppler assessment. Spectral analysis with color-flow imaging is performed. FINDINGS: There is occlusion of the left great saphenous vein with wall thickening compatible with recent RFA. Distal branches of the saphenous vein appear to be occluded. There does not appear to be extension into the saphenofemoral junction. There is a prominent lymph node in the left groin, likely reactive. Regarding the deep system, there is normal venous compression and respiratory variation and augmented flow. The visualized common femoral vein, superficial femoral vein, profunda femoral vein, popliteal vein, and the trifurcation region shows no evidence of deep venous thrombosis. There is no significant popliteal fossa cyst. US/US venous duplex LE IMPRESSION: Expected post treatment changes relating to left lower extremity great saphenous vein ablation. No evidence of DVT.
== END 2021-10-28 08:18 | disposition home or self-care (01) ==
LOC: HO.HMGCX 08:17
PROVIDERS: Visit Provider Surgery Vascular Surgery
DX: M79.605 Pain in left leg (principal)
CPT/HCPCS: 93971

== ENCOUNTER → 2021-10-31 09:50 | Outpatient (REF) | payer BC, SELFPAY | LOC: HO.SL 09:50 | PROVIDERS: PCP Nurse Practitioner Family; Visit Provider Otolaryngology | DX: G47.33 Obstructive sleep apnea (adult) (pediatric) (principal) | CPT/HCPCS: 95806 ==

== ENCOUNTER → 2021-11-05 09:11 | Outpatient (BNVA) | payer BC, SELFPAY | PROVIDERS: PCP Nurse Practitioner Family; Visit Provider Surgery Vascular Surgery ==

== ENCOUNTER 2021-11-15 06:32 | Day surgery (SDC) | payer BC, SELFPAY ==
[2021-11-08 14:35] VITALS: BMI 40.7
--- NOTE | 2021-11-14 09:43 | HO.ANESPROP2 ---
Documented by User: Octavia Palm NP 11/14/21 09:44 HPI - Anesthesia Eval Consult details Narrative: 56yo M for Colonoscopy PMFSH Active Problems Active Problems: All Active Problems (Updated 11/08/21 @ 14:33 by Emily Bhatt RN) Bradycardia (Acute) Screening for colon cancer (Acute) Gout (Acute) Physical exam (Acute) Screening PSA (prostate specific antigen) (Acute) Varicose veins of bilateral lower extremities with pain (Acute) Varicose veins of left lower extremity with inflammation (Acute) Past Medical History Medical History (Updated 11/08/21 @ 14:33 by Emily Bhatt RN) COVID-19 vaccine series completed Gout Hypertension Hypogonadism Hypothyroid CANDY (obstructive sleep apnea) Renal calculi Surgical History Surgical History (Updated 11/08/21 @ 14:34 by Emily Bhatt RN) No pertinent past surgical history Social History Social History Housing: House Alcohol intake: current Alcohol intake frequency: a few times a month Patient Tobacco Use Status: Never used Tobacco e-Cigarette/Vaping Use: Never Used Second Hand Smoke Exposure: No Use of substances other than those prescribed or required for medical reasons: No Have you been hit, kicked, punched, or otherwise hurt by someone within the past year? 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 [employer] Current occupational exposures/hazards: No Meds Allergies Allergy/AdvReac Type Severity Reaction Status Date / Time No Known Allergies Allergy Verified 11/05/21 09:23 Home Medications Medication Instructions Recorded Confirmed Last Taken Type levothyroxine 175 mcg tablet 175 mcg PO DAILY 06/14/21 11/08/21 11/15/21 History testosterone 20 mg TOPICAL DAILY 06/14/21 11/08/21 Unknown History ibuprofen 800 mg tablet 800 mg PO TID 11/05/21 11/08/21 Unknown History aspirin 81 mg tablet,delayed 81 mg PO DAILY 11/08/21 11/08/21 Unknown History release (Aspirin Low Dose) fluconazole 150 mg tablet 1 tab PO DAILY 11/08/21 11/08/21 Unknown History Exam Exam Date and Time: November 14, 2021 0943 Height,Weight and Vital Signs: Height 5 ft 11 in Weight 132.449 kg Pertinent Lab Results Pertinent Lab Results: Laboratory Tests 07/30/21 07/30/21 11:11 11:11 WBC 5.1 Hgb 14.8 Hct 44.8 Plt Count 204 Sodium 137 Potassium 4.3 Chloride 102 Carbon Dioxide 30 H BUN 15 Creatinine 0.90 Narrative Narrative: EKG 05/2021 Vent. Rate : 065 BPM ? ? Atrial Rate : 065 BPM ?? P-R Int : 174 ms? QRS Dur : 102 ms ? ? QT Int : 406 ms ? ? ? P-R-T Axes : 058 -08 056 degrees ?? QTc Int : 422 ms ? Sinus rhythm with occasional Premature ventricular complexes Otherwise normal ECG When compared with ECG of 14-JUN-2021 04:31, No significant change was found Assessment and Plan Assessment Anesthesia Assessment: Chart Reviewed Documented by User: Geni Grewal MD 11/15/21 07:19 [facility] Past Medical History Medical History (Updated 11/08/21 @ 14:33 by Emily Bhatt RN) COVID-19 vaccine series completed Gout Hypertension Hypogonadism Hypothyroid CANDY (obstructive sleep apnea) Renal calculi Family History Family history of problems with anesthesia: No Surgical History Surgical History (Updated 11/08/21 @ 14:34 by Emily Bhatt RN) No pertinent past surgical history History of Problems with Anesthesia: No Social History Social History Housing: House Alcohol intake: current Alcohol intake frequency: a few times a month Patient Tobacco Use Status: Never used Tobacco e-Cigarette/Vaping Use: Never Used Second Hand Smoke Exposure: No Use of substances other than those prescribed or required for medical reasons: No Have you been hit, kicked, punched, or otherwise hurt by someone within the past year? 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 [employer] Current occupational exposures/hazards: No Meds Allergies Allergy/AdvReac Type Severity Reaction Status Date / Time No Known Allergies Allergy Verified 11/05/21 09:23 Home Medications Medication Instructions Recorded Confirmed Last Taken Type levothyroxine 175 mcg tablet 175 mcg PO DAILY 06/14/21 11/08/21 11/15/21 History testosterone 20 mg TOPICAL DAILY 06/14/21 11/08/21 Unknown History ibuprofen 800 mg tablet 800 mg PO TID 11/05/21 11/08/21 Unknown History aspirin 81 mg tablet,delayed 81 mg PO DAILY 11/08/21 11/08/21 Unknown History release (Aspirin Low Dose) fluconazole 150 mg tablet 1 tab PO DAILY 11/08/21 11/08/21 Unknown History Exam Airway Mallampati Class: III TM Dist: >3cm Neck ROM: Full Assessment and Plan Assessment Anesthesia Assessment: Anesthesia Plan Discussed Final Anesthetic Review Family History of Problems with Anesthesia: No History of Problems with Anesthesia: No NPO: Yes ASA Class: III Final Preanesthetic Review: No Changes in Pt Med Stat, Meds/Allgs Chart Reviewed, Consent Obtained/Reviewed and Anes Risks/Benef Reviewed Patient Risk: Intermediate Procedure Risk: Intermediate Anesthetic Plan Anesthetic Plan: MAC: Disposition: Standard PACU
[2021-11-15 06:46] VITALS: BP 150/93; PULSE 69; RESP 16; TEMP 37.3; O2SAT 96
[2021-11-15] MEDS: Lactated Ringers 1,000 ML 100 ML IVCONT (07:01)
--- NOTE | 2021-11-15 07:34 | MHC.SHP ---
Pre-Procedural Eval Section A Date of Service: 11/15/21 Section B Chief Complaint: screening Details of Present Illness: See H&P no changes Relevant Family History (Specify if Yes): No Relevant Social History: None Present Medications: see Short Stay Collaborative assessment Medical History: No relevant PMH History of Previous Operations: No relevant previous surgery Allergies: Allergies Allergy/AdvReac Type Severity Reaction Status Date / Time No Known Allergies Allergy Verified 11/05/21 09:23 Review of Systems Sugical H&P ROS: Negative: Constitution, Cardiovascular, Respiratory, Neurological, Psychiatric, Hem-Onc, Allergic/Immunologic, Gastrointestinal, Genitourinary, Musculoskeletal, Integumentary, Endocrine and Eyes/Ears/Nose/Throat Exam Surgical H&P Exam: Normal: HEENT, Normal: Heart, Normal: Lungs, Normal: Extremities, Normal: Abdomen, Normal: Skin and Normal: Neurological Plan I have reviewed the history and physical and performed a pertinent physical examination on my patient. No changes have occurred unless specified.
[2021-11-15 08:15] VITALS: BP 131/62; PULSE 67; RESP 18; TEMP 37.3; O2SAT 98
--- NOTE | 2021-11-15 08:20 | PM.OP ---
Brief Operative Note Date of Service: 11/15/21 Pre-op diagnosis: screening Post-op diagnosis: same Procedure: colonosocpy Surgeon: Vivek Keller Anesthesia: MAC Was an Fashion Styling Intern used for this Procedure?: No Estimated blood loss (mL): 0 Pathology: none sent Condition: stable Disposition: PACU
[2021-11-15 08:30] VITALS: BP 121/67; PULSE 63; RESP 18; TEMP 37; O2SAT 97
--- NOTE | 2021-11-15 08:51 | OP_ITS ---
SURGEON: Vivek Keller MD INDICATIONS: Colon cancer screening. PREOPERATIVE DIAGNOSIS: POSTOPERATIVE DIAGNOSIS: PROCEDURE PERFORMED: Colonoscopy to the terminal ileum. ESTIMATED BLOOD LOSS: COMPLICATIONS: ANESTHESIA: Medications: Monitored anesthesia care. ASSISTANTS: SPECIMENS: DESCRIPTION OF PROCEDURE: History and physical performed. The risks and benefits of the procedure were explained to the patient. Informed consent was obtained. The patient was placed in the left lateral decubitus position. A digital rectal exam was performed and was found to be normal. The Olympus pediatric video colonoscope was introduced into the rectum and advanced to the cecum without difficulty. The cecum was identified by transillumination, palpation, and identification of ileocecal valve. Examination was performed. The scope was removed. He tolerated the procedure well and was returned to recovery area in stable condition. FINDINGS: The terminal ileum was normal. The visualized colonic mucosa was normal. The quality of prep was fair with some liquid stool, which was coating the mucosa throughout the colon. This was washed and suctioned and eventually a good exposure of the mucosa was seen. No polyps were identified. Retroflexed examination showed small internal hemorrhoids. There was mild sigmoid diverticulosis. IMPRESSION: Normal screening colonoscopy. RECOMMENDATIONS: 1. Follow up as needed. 2. Repeat colonoscopy is recommended in 10 years. MD CHERISE Lomeli/ZHOUL / [phone]
== END 2021-11-15 09:51 | disposition home or self-care (01) ==
PROVIDERS: PCP Nurse Practitioner Family; Visit Provider Internal Medicine Gastroenterology
PROC: 0DJD8ZZ Inspection of Lower Intestinal Tract, Via Natural or Artificial Opening Endoscopic (ICD-10-PCS; CPT 45378; principal; 2021-11-15 07:30)
DX: Z12.11 Encounter for screening for malignant neoplasm of colon (principal); K57.30 Diverticulosis of large intestine without perforation or abscess without bleeding; K64.8 Other hemorrhoids; I10 Essential (primary) hypertension; G47.33 Obstructive sleep apnea (adult) (pediatric); E03.9 Hypothyroidism, unspecified; Z79.82 Long term (current) use of aspirin; Z79.899 Other long term (current) drug therapy; Z99.89 Dependence on other enabling machines and devices; Z87.442 Personal history of urinary calculi
CPT/HCPCS: 45378

== ENCOUNTER → 2022-01-31 08:42 | Outpatient (BNVA) | payer BC, SELFPAY | PROVIDERS: PCP Nurse Practitioner Family; Visit Provider Surgery Vascular Surgery | DX: I83.12 Varicose veins of left lower extremity with inflammation (principal) | CPT/HCPCS: 36475 ==

== ENCOUNTER 2022-02-04 10:27 | Outpatient (REF) | payer BC, SELFPAY ==
--- NOTE | ~2022-02-04 | US_ITS ---
EXAMINATION: US VENOUS ULTRASOUND WITH DOPPLER LOWER EXTREMITY, LEFT CLINICAL INFORMATION: Left leg pain. Status post left lower extremity RFA 01/31/2022. COMPARISON: 10/28/2021 and 08/21/2021. TECHNIQUE: Ultrasound of the deep veins is performed from the hip to the calf with compression sonography and color and pulse Doppler assessment. Spectral analysis with color-flow imaging is performed. FINDINGS: The greater saphenous vein is seen to be occluded approximately 0.5 cm from its bifurcation with the common femoral vein. No flow is detected within the greater saphenous vein down to within 1 cm of the popliteal vein. There is normal venous compression and respiratory variation and augmented flow. The visualized common femoral vein, superficial femoral vein, profunda femoral vein, popliteal vein, and the trifurcation region shows no evidence of deep venous thrombosis. There is no significant popliteal fossa cyst. No popliteal artery aneurysm. US/US venous duplex LE LT IMPRESSION: No DVT demonstrated in the left lower extremity. Status post radiofrequency ablation with thrombosis of the saphenous vein.
== END 2022-02-04 10:28 | disposition home or self-care (01) ==
LOC: HO.US 10:27
PROVIDERS: PCP Nurse Practitioner Family; Visit Provider Surgery Vascular Surgery
DX: M79.605 Pain in left leg (principal)
CPT/HCPCS: 93971

== ENCOUNTER → 2022-02-13 09:57 | Outpatient (BNVA) | payer BC, SELFPAY | PROVIDERS: PCP Nurse Practitioner Family; Visit Provider Surgery Vascular Surgery | DX: Z13.89 Encounter for screening for other disorder (principal) ==

== ENCOUNTER → 2022-05-09 08:32 | Outpatient (BNVA) | payer BC, SELFPAY | PROVIDERS: PCP Nurse Practitioner Family; Visit Provider Surgery Vascular Surgery | DX: I83.11 Varicose veins of right lower extremity with inflammation (principal) | CPT/HCPCS: 36475 ==

== ENCOUNTER 2022-05-12 09:29 | Outpatient (REF) | payer BC, SELFPAY ==
--- NOTE | ~2022-05-12 | US_ITS ---
EXAMINATION: US VENOUS ULTRASOUND WITH DOPPLER LOWER EXTREMITY, RIGHT CLINICAL INFORMATION: Pain in right leg. COMPARISON: None TECHNIQUE: Ultrasound of the deep veins is performed from the hip to the calf with compression sonography and color and pulse Doppler assessment. Spectral analysis with color-flow imaging is performed. FINDINGS: There is clot visualized in the superficial saphenous vein at the junction with the popliteus vein not extending to popliteal vein. Patient is status post RF ablation. There is normal venous compression and respiratory variation and augmented flow. The visualized common femoral vein, superficial femoral vein, profunda femoral vein, popliteal vein, and the trifurcation region shows no evidence of deep venous thrombosis. There is no significant popliteal fossa cyst. If the patient's symptoms persist, followup ultrasound in 5 days 7 days might be of value to exclude proximal propagation from a nonvisualized calf vein. US/US venous duplex LE RT IMPRESSION: No DVT demonstrated in the right lower extremity. Clot visualized in the superficial saphenous vein close to the popliteal junction but not in the popliteal vein status post venous ablation.
== END 2022-05-12 09:30 | disposition home or self-care (01) ==
LOC: HO.US 09:29
PROVIDERS: Visit Provider Surgery Vascular Surgery
DX: M79.604 Pain in right leg (principal)
CPT/HCPCS: 93971

== ENCOUNTER 2023-09-28 16:26 | Outpatient (AMB) | payer BC, SELFPAY ==
--- NOTE | 2023-09-28 16:28 | A.OFFPC_ITS ---
Vital Signs 09/28/23 16:30 Height 5 ft 10 in Weight 307 lb BMI 44.0 BP 130/80 Blood Pressure Location Rt brachial Position Sitting Pulse 78 Pulse Source Pulse Oximeter Pulse Oximetry (%) 98 Oxygen Delivery Method Room Air Intake Visit Reasons: see below Intake Note: Patient here for annual physical exam. no new issues or concerns. Allergies No Known Allergies Allergy (Verified 09/28/23 16:31) Tobacco use date assessed: 09/28/23 Dental Screening Dental Screen Date: 09/28/23 Did you have a dental visit in the last 12 months?: Yes Did you have a dental problem in the last 6 months where you did not have access to dental care?: No Was dental information given to patient?: Patient has dentist HPI HPI Comments History of Present Illness Details Pt is here for a PE. Will order labs. Colon screen is up to date. Due for PSA, will order. Denies dribbling with urination, weak stream, and frequent nocturia. 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 [facility] Medical History COVID-19 vaccine series completed Gout Hypertension Hypogonadism Hypothyroid CANDY (obstructive sleep apnea) Renal calculi Surgical History No pertinent past surgical history Social History Housing: House Alcohol intake: current Alcohol intake frequency: a few times a month Patient Tobacco Use Status: Never used Tobacco e-Cigarette/Vaping Use: Never Used Second Hand Smoke Exposure: No service: No Current occupational status: employed Current occupation: [employer] Current occupational exposures/hazards: No Cognitive needs: No Hearing needs: No Vision needs: No Questionnaire PHQ-9 Over the last 2 weeks, how often have you been bothered by any of the following problems? 1. Little interest or pleasure in doing things: not at all 2. Feeling down, depressed, or hopeless: not at all 3. Trouble falling or staying asleep, or sleeping too much: not at all 4. Feeling tired or having little energy: not at all 5. Poor appetite or overeating: not at all 6. Feeling bad about yourself - or that you are a failure or have let yourself or your family down: not at all 7. Trouble concentrating on things, such as reading the newspaper or watching television: not at all 8. Moving or speaking so slowly that other people could have noticed. Or the opposite - being so fidgety or restless that you have been moving around a lot more than usual: not at all 9. Thoughts that you would be better off or of hurting yourself in some way: not at all Total score: 0 Depression Screening Interpretation: Negative Depression Screening Done: Yes [id number] - PHQ-9 Billing: Yes Source: Developed by Drs. Grayson Brooks, Yesenia Fournier, Adin Seaman and colleagues, with an educational carey from [employer]. Thrive Questionnaire Date Thrive assessed: 08/04/22 I am a: Patient What is your living situation today?: I have a steady place to live Within the past 12 months, did the food you bought not last and you didn't have the money to get more?: Never true Within the past 12 months, did you worry whether your food would run out before you got money to buy more?: Never true AUDIT C Alcohol Use Questionnaire (AUDIT-C) 1. How often do you have a drink containing alcohol?: 2-4 times a month 2. How many drinks containing alcohol do you have on a typical day when you are drinking?: 1 or 2 3. How often do you have six or more drinks on one occasion?: Less than monthly Total Score: 3 SHASHANK-7 AMB Questionnaire SHASHANK-7 Date SHASHANK - 7 assessed: 09/28/23 Feeling nervous, anxious, or on edge: 0 = Not at all Not being able to stop or control worryin = Not at all Worrying too much about different things: 0 = Not at all Trouble relaxin = Not at all Being so restless that it is hard to sit still: 0 = Not at all Becoming easily annoyed or irritable: 0 = Not at all Feeling afraid as if something awful might happen: 0 = Not at all Total SHASHANK-7 score (0-4 normal; 5-9 mild; 10-14 moderate; 15-21 severe): 0 Source: Developed by Drs. Grayson Brooks, Adin Henningoenke and colleagues, with an educational carey from [employer]. Review of Systems Const Denies chills and Denies fever(s) Eyes Denies blurry vision ENT Denies vertigo, Denies dizziness and Denies sore throat Card Denies chest pain at rest, Denies chest pain with activity, Denies diaphoresis, Denies dyspnea and Denies dyspnea on exertion Resp Denies cough, Denies dyspnea, Denies dyspnea on exertion and Denies wheezing GI Denies abdominal pain, Denies melena, Denies hematochezia, Denies constipation, Denies diarrhea and Denies loose stools Denies hematuria Musc Denies numbness and Denies tingling Skin/Breast Denies lesions Neuro Denies vertigo, Denies dizziness, Denies numbness and Denies tingling Psych Denies anxiety, Denies depression, Denies homicidal ideation, Denies suicidal ideation and Denies other (substance abuse) Aller/Immun Denies wheezing Physical exam (Primary Care) Vital Signs: Last Vital Signs Pulse 78 09/28/23 16:30 BP 130/80 09/28/23 16:30 Pulse Ox 98 09/28/23 16:30 Oxygen Delivery Method Room Air 09/28/23 16:30 BMI result Body Mass Index 44.0 Tobacco/Smoking Status: Tobacco use Status Tobacco use date assessed 09/28/23 09/28/23 16:35 Patient Tobacco Use Status Never used Tobacco 09/28/23 16:29 e-Cigarette/Vaping Use Never Used 09/28/23 16:29 PHQ-9: PHQ-9 Score PHQ-9: Total score 0 09/28/23 17:25 Depression Screening Interpretation: Negative Thrive Assessment: Date of Thrive Assessment Date Thrive assessed 08/04/22 09/28/23 16:29 Const General: cooperative Nutritional Appearance: well nourished and obese Orientation/consciousness: patient oriented x3 HENMT Head: Yes normal to inspection, Yes normocephalic and Yes atraumatic Ears: TM's normal bilaterally Eyes General: appearance normal, both eyes and all related structures Alignment and Position: alignment normal and position normal Neck Neck: Yes normal visual inspection and Yes no lymphadenopathy Thyroid: Thyroid normal Resp Effort & Inspection: normal respiratory effort Auscultation: clear to auscultation bilaterally Cardio Rate: regular rate Rhythm: regular rhythm Heart sounds: S1 normal heart sound present, S2 normal heart sound present and no murmurs GI Palpation (GI): Soft to palpation and nontender Auscultation: normal bowel sounds Male General Exam: Yes normal external exam Penis: normal penis Scrotum: scrotum normal, testes descended bilaterally and no inguinal hernias Testes: no testicular mass Skin Rashes: no rashes Neuro General: patient oriented x3, moves all extremities, no focal motor deficits and deep tendon reflexes 2+ bilaterally Romberg Test: Negative Psych Appearance: grossly normal Mental Status: mental status grossly normal Speech and movement: Normal speech and movement present Affect: normal affect Attitude: cooperative Thought process: Normal thought process present Thought content: Normal thought content present Insight: Good insight present (Psych) Judgement: Good judgement present (Psych) Assessment and Plan Assessment & Plan (1) Physical exam: Code(s): Z00.00 - Encounter for general adult medical examination without abnormal findings (2) Screening PSA (prostate specific antigen): Code(s): Z12.5 - Encounter for screening for malignant neoplasm of prostate Orders: Orders Complete Blood Count Auto Diff Today Z00.00 - Encounter for general adult medical examination without abnormal findings Comprehensive [place]. Panel Fast Today Z00.00 - Encounter for general adult medical examination without abnormal findings TSH reflex Free T4 Today Z00.00 - Encounter for general adult medical examination without abnormal findings UA CC w/rflx Micro + Cult Today Z00.00 - Encounter for general adult medical examination without abnormal findings Lipid Panel Today Z00.00 - Encounter for general adult medical examination without abnormal findings Prostate Specific Antigen Scr Today Z12.5 - Encounter for screening for maligna nt neoplasm of prostate Coding Level of Care Code Est Pt Prev Care 40-64y(41775) Diagnoses Physical exam Z00.00 Screening PSA (prostate specific antigen) Z12.5
[2023-09-28 16:30] VITALS: BP 130/80; PULSE 78; O2SAT 98; BMI 44.0
== END 2023-09-28 18:15 | disposition home or self-care (01) ==
PROVIDERS: PCP Nurse Practitioner Family; Visit Provider Nurse Practitioner Family
DX: Z00.00 Encounter for general adult medical examination without abnormal findings (principal); Z12.5 Encounter for screening for malignant neoplasm of prostate
CPT/HCPCS: 99396

== ENCOUNTER 2023-10-02 08:31 | Outpatient (REF) | payer BC, SELFPAY ==
[2023-10-02 11:21] LABS: MANUAL DIFF FLAG NO
[2023-10-02 11:33] LABS: Basophils Percent Auto 0.6 % (0-2); Eosinophils Absolute Auto 0.2 X10*3/uL (0.0-0.4); Eosinophils Percent Auto 4.5 % (0-4); Hematocrit 44.6 % (42.0-52.0); Hemoglobin 15.2 g/dl (14.0-18.0); Imm Gran Abs Auto 0.02 X10*3/uL (0.00-0.03); Imm Gran Pct Auto 0.4 % (0.0-0.4); Lymphocytes Percent Auto 19.6 % (20-40); Mean Corpuscular HGB Conc 34.1 g/dl (31.0-36.0); Mean Platelet Volume 10.5 fL (9.4-12.4); Monocytes Absolute Auto 0.5 X10*3/uL (0.1-1.2); Monocytes Percent Auto 9.2 % (2-11); Neutrophils Absolute Auto 3.2 x10*3/uL (2.0-8.3); Neutrophils Percent Auto 65.7 % (45-73); Platelet Count 197 X10*3/uL (160-400); Red Cell Distribution Width 13.2 % (11.0-16.0); White Blood Count 4.9 X10*3/uL (4.8-10.8)
[2023-10-02 12:04] LABS: Alanine Aminotransferase 23 U/L (0-40); Albumin Level 4.2 g/dL (3.5-5.0); Alkaline Phosphatase 59 U/L (39-117); Anion Gap 11 (12-20); Aspartate Amino Transferase 23 U/L (5-37); Bilirubin Total 0.5 mg/dL (0.0-1.0); Blood Urea Nitrogen 15 mg/dL (9-16); Calcium 8.9 mg/dL (8.4-10.2); Carbon Dioxide 27 mmol/L (22-29); Chloride 103 mmol/L (96-108); Cholesterol 150 mg/dL (<200); Estimated Glomerular Filt Rate > 60; Glucose Fasting 104 mg/dL (60-99); HDL Cholesterol 41 mg/dL (>40); LDL Cholesterol Calculated 99 mg/dL (<100); Potassium 4.5 mmol/L (3.3-5.1); Sodium 136 mmol/L (135-145); Total Protein 7.4 g/dL (6.5-8.0); Triglycerides 51 mg/dL (<150)
[2023-10-02 12:22] LABS: TSH reflex Free T4 2.75 uIU/mL (0.32-4.0)
[2023-10-02 12:25] LABS: Prostate Specific Antigen Scr 0.28 ng/mL (<0.05-4.0)
[2023-10-02 13:53] LABS: Appearance Urine Clear; Color Urine Yellow; Glucose Urine UA Negative (Negative); Leukocyte Esterase Urine Negative (Negative); Nitrite Urine Negative (Negative); PH 6.5 (5.0-9.0); Urine Blood Negative (Negative); Urine Ketones Negative (Negative); Urine Protein Negative (Neg-Trace)
== END 2023-10-02 08:32 | disposition home or self-care (01) ==
LOC: HO.HMGCLDS 08:31
PROVIDERS: PCP Nurse Practitioner Family; Visit Provider Nurse Practitioner Family
DX: Z00.00 Encounter for general adult medical examination without abnormal findings (principal); Z12.5 Encounter for screening for malignant neoplasm of prostate
CPT/HCPCS: 36415; 80053; 80061; 81003; 84153; 84443; 85025

== ENCOUNTER → 2024-08-10 16:25 | Outpatient (BNV) | payer BC, SELFPAY | PROVIDERS: Admitting Provider Internal Medicine; Emergency Provider Emergency Medicine; PCP Nurse Practitioner Family; Visit Provider Internal Medicine Cardiovascular Disease | DX: R94.31 Abnormal electrocardiogram [ECG] [EKG] (principal) | CPT/HCPCS: 93010 ==

== ENCOUNTER → 2024-10-10 08:59 | Outpatient (REF) | payer BC, SELFPAY ==
--- OUTSIDE RECORDS SUMMARY | 2024-10-10 09:02 | XMS_ITS | Patient Health Record ---
Author Organization [facility] Address [address] [place] [id number] Care Team Providers Care Alternative Energy Technician Name Role Phone SANKET MORILLO Primary Care Provider Vivek Garcia Jr ALLERGIES No Known Allergies REASON FOR REFERRAL No Information MEDICATIONS Medication SIG (Take, Route, Frequency, Duration) Notes Start Date End Date Status Aspirin 81 81 MG 1 tablet Orally Once a day for 30 day(s) Active Allopurinol Active methylPREDNISolone A ctive amLODIPine Besylate 5 mg daily Active MiraLax (colon prep) 17 GM/SCOOP mixed with Gatorade or Crystal Light Orally begin at 5:00 p.m. the day before the procedure for 1 day 09/04/2021 Active Lisinopril 40 mg daily Active Colchicine Active Levothyroxine Sodium 175 mcg daily Active Cyclobenzaprine HCl Active Testosterone Active IMMUNIZATIONS Vaccine Route Administration Date Status Comme nts Influenza Unknown 09/04/2021 Refused SOCIAL HISTORY Tobacco Use: Social History Observation Description Date Details (start date - stop date) Never Smoker NA - NA Sex Assigned At : Social History Observation Description Sex Assigned At Unknown Tobacco Use/Smoking Question Answer Notes Patient is a nonsmoker Alcohol Screen Question Answer Notes Did you have a drink contain ing alcohol in the past year? Yes How often did you have a dri nk containing alcohol in the past year? 2 to 4 times a month (2 points) How many drinks did you have on a typical day when you were drinking in the past year? 3 or 4 drinks (1 point) How often did you have 6 or more drinks on one occasion in the past year? Less than monthly (1 point) Points 4 Interpretation Positive PROBLEMS Problem Type ICD Code Onset Dates Problem Status W/U Status Risk SNOMED Code Notes Problem Colon cancer screening (Z12.11) Active confirmed 363911326 Problem Encounter for other preprocedural examination (Z01.818) Active confirmed 845794144 Problem correction (current) use of aspirin (Z79.82) Active confirmed [id number] PLAN OF TREATMENT Future Test Test Name Order Date COLONOSCOPY 09/04/2021 Insurance Providers Payer Name Payer Address Payer Phone Subscriber Number Group Number Insured Name Patient Relationship to Insured Coverage Start Date Coverage End Date [facility] [address] [place] [address] [phone] [id number] SANKET CROCKETT Self - patient is the insured MEDICAL (GENERAL) HISTORY Medical History History ICD Code Hypertension Hypothyroid Gout CANDY/CPAP Hypogonadism Nephrolithiasis Surgical History Surgery Date(Month/Year) Hospitalization History Reason Date(Month/Year) Passed a kidney stone 2020
== END ==
LOC: HO.CARD 08:59
PROVIDERS: PCP Nurse Practitioner Family; Visit Provider Nurse Practitioner Family
DX: Z13.89 Encounter for screening for other disorder (principal)

== ENCOUNTER 2024-10-10 09:59 | Observation (INO) | payer BC, SELFPAY ==
--- NOTE | 2024-08-10 16:25 | ECG_ITS ---
Test Reason : RHYTHM CK Blood Pressure : / mmHG Vent. Rate : 067 BPM Atrial Rate : 067 BPM P-R Int : 192 ms QRS Dur : 096 ms QT Int : 386 ms P-R-T Axes : 067 -60 062 degrees QTc Int : 407 ms Sinus rhythm with frequent Premature ventricular complexes Left axis deviation Low voltage QRS Possible Inferior infarct (cited on or before 10-OCT-2024) Abnormal ECG When compared with ECG of 10-OCT-2024 10:09, Sinus rhythm has replaced Atrial fibrillation Vent. rate has decreased BY 46 BPM Referred By: Randall Mane Electronically Signed By:Madhav Cm
[2024-10-10] VITALS (18 sets, daily range): BP systolic 92–143; BP diastolic 50–91; PULSE 62–130; RESP 14–25; TEMP 36.3–37.4; O2SAT 94–99; BMI 43.8; BMI 44.4
--- NOTE | ~2024-10-10 | XR_ITS ---
EXAMINATION: XR CHEST CLINICAL INFORMATION: edema COMPARISON: CT anterior chest of 06/14/2021, chest radiograph of 10/14/2018 TECHNIQUE: Frontal view of the chest was obtained. FINDINGS: There is no gross pneumothorax. Heart size is normal. Degenerative changes in the thoracic spine. Trace left pleural effusion with minimal adjacent streaky opacities in the lower lateral left lung base. No new focal consolidation. XR/XR chest 1V IMPRESSION: Trace left pleural effusion with minimal adjacent streaky opacities in the lower lateral left lung base. No new focal consolidation. This study was presented today to October 10, 2024 for interpretation. Stat results provided at this time as requested by referring provider. Electronically signed by: Dannielle Strickland MD 10/10/2024 11:27 AM [facility]
--- NOTE | 2024-10-10 07:00 | CA_ITS ---
Transthoracic Echocardiogram Patient (Last, First, Middle): Mariusz Orlando T Gender: Male Date of : 1965 Age: 59 Procedure Date: 10/10/2024 Procedure Type: Transthoracic Echocardiogram Location: ER Height: 180.34 cm Weight: 139.71 kg BSA: 2.53 m2 Heart Rate: bpm BP: 136 / 79 mmHg Hand Router Operator: Referring MD: Madhav Cm MD Symptoms: Afib with RVR Study Quality: Fair, contrast Conclusions: - Normal left ventricular cavity size. There is mildly increased left ventricular wall thickness. The left ventricular systolic function is moderate to severely decreased. The visually estimated ejection fraction is between 25-30%. - Normal right ventricular cavity size. There is mildly decreased right ventricular systolic function - Mod to severe dilation of the main pulmonary trunk noted 4.88 cm. - Significantly elevated right atrial pressure. Findings Procedure Information Contrast agent, definity, is being given per protocol without apparent complications. Left Ventricle Normal left ventricular cavity size. There is mildly increased left ventricular wall thickness. The left ventricular systolic function is moderate to severely decreased. The visually estimated ejection fraction is between 25-30%. Diastolic function is indeterminate on the basis of available data. Right Ventricle Normal right ventricular cavity size. There is mildly decreased right ventricular systolic function. Atria The left atrium is moderately dilated. The right atrium is mildly dilated. Aortic Valve There is a normal trileaflet aortic valve. There is no aortic valve stenosis. There is no aortic valve regurgitation. Mitral Valve Normal mitral valve structure and function. There is no mitral valve regurgitation. There is no mitral valve stenosis. Pulmonic Valve The pulmonic valve is likely normal. Tricuspid Valve Normal tricuspid valve structure. There is trace tricuspid valve regurgitation. Tricuspid regurgitation envelope is inadequate for calculation of right ventricular systolic pressure. Significantly elevated right atrial pressure. Great Vessels All visible segments of the aorta are normal in size. Mod to severe dilation of the main pulmonary trunk noted 4.88 cm. Venous The inferior vena cava is dilated and does not collapse with inspiration. Pericardium/Pleural There is no evidence of pericardial effusion. Prior Study Comparison No prior study available for comparison. Measurements 2D Linear Measurements IVSd: 1.30 0.6-0.9/0.6-1.0 cm LVIDd: 5.14 3.9-5.3/4.2-5.9 cm LVIDd Index: 2.03 2.4-3.2/2.2-3.1 cm/m2 LVIDs: 3.74 2.0-3.6 cm LVPWd: 1.25 0.7-1.1 cm LA Diam: 4.10 2.7-3.8/3.0-4.0 cm LAIDs Index: 1.62 1.5-2.3 cm/m2 LV Mass: 331.72 67-162/88-224 g LV Mass Index: 131.11 43-95/49-115 g/m2 LVOT Diam: 2.50 3.0+(-)1.3 cm 2D Systolic Function EF 4C: 46.80 >55% EF 2C: 43.50 >55% EF BiP: 44.70 >55% Mitral Valve MV Pk E: 0.66 MV Decel Time: 161.00 E'Lateral: 13.40 E'Medial: 8.49 E/E' Med: 7.70 E/E' Lat: 4.90 PHT: 47.00 MVA PHT: 4.68 Decel [place]: 4.07 Aortic Valve AoV Pk Arthur: 0.90 AoV Pk Grad: 3.00 LVOT LVOT Pk Arthur: 0.58 LVOT Mn Arthur: 0.38 LVOT VTI: 0.10 LVOT Pk Grad: 1.00 LVOT Mn Grad: 1.00 LVOT Diam: 2.50 LVOT Area: 4.91 Diastolic Function MV Pk E: 0.66 E'Medial: 8.49 E/E' Med: 7.70 E' Laterial: 13.40 E/E' Lat: 4.90 Right Ventricle TAPSE (mm): 17.50 TVS' Arthur: 8.38 Tricuspid Valve TR Pk Arthur: 1.92 TR Pk Grad: 15.00 Great Vessels Aorta Sinus of Valsalva: 3.30 2.0-3.5 cm Pulmonary Valve PV Pk Arthur: 0.71 Peak PV Grad: 2.00 Updated in Other Vendor System with Status of Final Madhav Cm MD electronically signed on 10/10/2024 2:01:02 PM with status of Final
--- NOTE | 2024-10-10 10:03 | ECG_ITS ---
Test Reason : AFIB Blood Pressure : / mmHG Vent. Rate : 113 BPM Atrial Rate : 000 BPM P-R Int : 000 ms QRS Dur : 094 ms QT Int : 308 ms P-R-T Axes : 000 -46 014 degrees QTc Int : 422 ms Atrial fibrillation with rapid ventricular response with premature ventricular or aberrantly conducted complexes Left axis deviation Low voltage QRS Inferior infarct , age undetermined Abnormal ECG When compared with ECG of 14-JUN-2021 08:37, Atrial fibrillation has replaced Sinus rhythm Vent. rate has increased BY 48 BPM Referred By: Anusha Bobby Electronically Signed By:Madhav Cm
--- NOTE | 2024-10-10 10:17 | PC.NURSE ---
patient presents to the ED from cardiology, was suposed to have stress test this AM, noted to be in afib, patient does not have history of AFIB. patient a fib rate between 110s-130s, patient denies any sob and dizziness. patient [place] and sometimes when he is walking or changes position too fast he feels as if his equilibrium is off . 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 patient denies any palpitations. patient states usually he is very active, swims a lot. patient states since he has not been as active as he usually is and his diet has not been as good as it normally is. patient endorses social alcohol use on the weeks, states at times can have 4-5 beers. patient denies ciagrettes or illicit drugs.
[2024-10-10 10:24] LABS: MANUAL DIFF FLAG NO
--- NOTE | 2024-10-10 10:26 | ED.ARRPALP ---
HPI - Arrhythmia/Palpitations General Chief Complaint: Arrhythmia/Palpitations Stated Complaint: AFIB Time Seen by Provider: 10/10/24 10:02 Source: patient and old records reviewed Mode of arrival: ambulatory Limitations: no limitations History of Present Illness ED Provider: CARLA HPI narrative: 59 yo male with PMH of hypothyroidism, HTN, gout who had an outpatient stress test today due to a friend having CABG without symptoms. His was worried and asked him to get a stress test. He does not know about a family hx of CAD ?possibly in family. He has not had CP/SOB. [place] he will feel off balance but this is short lived. He has not traveled had procedure or URI. He feels fine now and was told in stress his HR was up. He was in rapid afib. He has never been in this before. He cannot feel it. He has been drinking ETOH more due to holidays. MD complaint: atrial fibrillation Onset (ago): unknown Duration: constant Severity: mild Context: other (doesn't know) Associated symptoms: denies other symptoms Related Data Home Medications ?Medication ?Instructions ?Recorded ?Confirmed levothyroxine 175 mcg tablet 175 mcg PO DAILY 06/14/21 08/04/22 testosterone 10 mg/0.5 20 mg topical DAILY 06/14/21 08/04/22 gram/actuation transdermal gel pump ibuprofen 800 mg tablet 800 mg PO TID 11/05/21 08/04/22 aspirin 81 mg tablet,delayed 81 mg PO DAILY 11/08/21 08/04/22 release (Adeel Low Dose Aspirin) Previous Rx's ?Medication ?Instructions ?Recorded allopurinol 100 mg tablet 100 mg PO DAILY 30 days #30 tabs 09/30/21 omeprazole 40 mg capsule,delayed 40 mg PO DAILY 90 days #90 caps 10/23/22 release colchicine 0.6 mg tablet 0.6 mg PO DAILY PRN gout 10 days 11/11/22 #30 tabs amlodipine 5 mg tablet 5 mg PO DAILY 90 days #90 tabs 04/13/24 lisinopril 40 mg tablet 40 mg PO DAILY 90 days #90 tabs 04/21/24 Allergies Allergy/AdvReac Type Severity Reaction Status Date / Time No Known Allergies Allergy Verified 10/10/24 10:09 Review of Systems Review of Systems: Constitutional : No Fever, No Chills, No Fatigue ENT/Mouth : No sore throat, No Rhinorrhea Eyes: No Eye Pain, No Swelling, No Redness Cardiovascular : No Chest Pain, No SOB, No Dyspnea on Exertion Respiratory : No Cough, No Sputum Gastrointestinal : No Nausea, No Vomiting, No Diarrhea, No abdominal Pain Genitourinary : No Dysuria, No Urinary Frequency, No Hematuria, Musculoskeletal : No joint pain, No Myalgias, No Joint Swelling Skin : No Skin Lesions, No rash Neuro : No Weakness, No Numbness, No Dizziness, no Headache Psych : No Anxiety/Panic, No Depression All other systems reviewed and are negative [facility] Past Medical History Attestation statement: The following information was validated with the patient. Source: old records reviewed Medical History COVID-19 vaccine series completed Renal calculi Gout Hypertension CANDY (obstructive sleep apnea) Hypothyroid Hypogonadism Surgical History No pertinent past surgical history Social History Social History Housing: House Alcohol intake: current Alcohol intake frequency: a few times a month Alcohol type: beer Patient Tobacco Use Status: Never used Tobacco Smoked in Last 30 Days: No e-Cigarette/Vaping Use: Never Used Second Hand Smoke Exposure: No Use of substances other than those prescribed or required for medical reasons: No Advance Directives: No Advance Directives Information Provided: Yes Do you have a plan to hurt others: No Plan service: No Current occupational status: employed 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 Current occupational exposures/hazards: No Cognitive needs: No Hearing needs: No Vision needs: No Physical Exam Vital Signs: Vital Signs: Last Vital Signs Temp 98.1 F 10/10/24 10:03 Pulse 90 10/10/24 12:05 Resp 20 10/10/24 12:05 BP 116/86 10/10/24 12:05 Pulse Ox 95 10/10/24 12:05 O2 Del Method Room Air 10/10/24 12:05 BMI result Body Mass Index 43.8 Appearance: Alert. Oriented X3. No acute distress. Eyes: Pupils equal, round and reactive to light. ENT: Pharynx normal. Neck: Normal inspection. Neck supple. CVS: irregular tachycardi heart rate and rhythm. Pulses normal. Respiratory: No respiratory distress. Breath sounds normal. Abdomen: Soft and non-tender. Skin: Skin warm and dry. Normal skin color. Normal skin turgor. Extremities: No lower extremity edema. Neuro: Oriented X 3. No motor deficit. No sensory deficit. Medications Administered Discontinued Medications Generic Name Dose Route Start Last Admin Trade Name Freq PRN Reason Stop Dose Admin Apixaban 5 mg 10/10/24 10:49 10/10/24 11:05 Apixaban 5 Mg Tablet PO 10/10/24 10:50 5 mg ONCE ONE Administration Diltiazem HCl 10 mg 10/10/24 10:11 10/10/24 10:41 Diltiazem Hcl 50 Mg/10 Ml Vial IVPUSH 10/10/24 10:12 Not Given STAT STA Metoprolol Tartrate 25 mg 10/10/24 10:52 10/10/24 11:05 Metoprolol Tartrate 25 Mg Tablet PO 10/10/24 10:53 25 mg ONCE ONE Administration Protocol Medical Decision Making Medical Decision Making MDM Narrative: 59 yo male with PMH of hypothyroidism, HTN, gout who went for stress test when he was asymptomatic before he started they found him to be in afib - he has no symptoms at this time I have ordered rate control, cardiology has seen the patient and reccomends work up but also starting eliquis 5mg BID and metoprolol 25mg BID. ECHO is ordered. If cardiomyopathy needs admit for possible cardioversion. Will start on medications in the ED - bblocker and eliquis, admission vs if ECHO normal will DC home with instructions to follow up but also no further ETOH Differential Diagnosis Differential Diagnoses: The differential diagnosis associated with the presentation includes afib, lyte abnormality no CP/SOB to suggest ACS or VTE Admission/Observation Consideration of admission/observation: Escalation of care including admission/observation considered admit to OR for cardioversion Consult Healthcare Provider Management of the patient was discussed with: Gastroenterology Physician (Dr. Cm ECHO and then eliquis 5mg BID and metoprolol 25mg BID) Lab Data [facility] Lab Attestation statement: I reviewed the patient's lab results. 10/10/24 10:20 10/10/24 10:20 Labs: Lab Results 12/23/24 Range/Units 10:20 WBC 6.8 (4.8-10.8) X10*3/uL RBC 4.85 (4.60-5.80) X10*6/uL Hgb 16.6 (14.0-18.0) g/dl Hct 46.5 (42.0-52.0) % MCV 95.9 (80.0-98.0) fL MCH 34.2 H (27.0-33.0) pg MCHC 35.7 (31.0-36.0) g/dl RDW 13.3 (11.0-16.0) % Plt Count 183 (160-400) X10*3/uL MPV 9.6 (9.4-12.4) fL Immature Gran % (Auto) 0.4 (0.0-0.4) % Neut % (Auto) 70.3 (45-73) % Lymph % (Auto) 15.4 L (20-40) % Lewis % (Auto) 10.4 (2-11) % Eos % (Auto) 2.8 (0-4) % Baso % (Auto) 0.7 (0-2) % Lymph # (Auto) 1.0 L (1.2-4.9) X10*3/uL [place] # (Auto) 0.7 (0.1-1.2) X10*3/uL Eos # (Auto) 0.2 (0.0-0.4) X10*3/uL Baso # (Auto) 0.1 (0.0-0.2) X10*3/uL Abs Immat Gran (auto) 0.03 (0.00-0.03) X10*3/uL Absolute Neuts (auto) 4.8 (2.0-8.3) x10*3/uL Absolute Nucleated RBC 0.000 (0.0-0.012) X10*3/uL Nucleated RBC % (auto) 0.0 (0.0-0.2) /100WBC PT 12.2 (10.9-12.4) SEC INR 1.0 (0.9-1.1) Sodium 137 (135-145) mmol/L Potassium 4.3 (3.3-5.1) mmol/L Chloride 105 (96-108) mmol/L Carbon Dioxide 26 (22-29) mmol/L Anion Gap 10 L (12-20) BUN 15 (9-16) mg/dL Creatinine 0.95 (0.5-1.4) mg/dL Estim Creat Clear Calc 119.5 Estimated GFR > 60 Random Glucose 113 (60-115) mg/dL Calcium 8.5 (8.4-10.2) mg/dL Magnesium 1.9 (1.6-2.6) mg/dL Total Bilirubin 0.4 (0.0-1.0) mg/dL Direct Bilirubin 0.2 (0.0-0.5) mg/dL AST 27 (5-37) U/L ALT 24 (0-40) U/L Alkaline Phosphatase 55 (39-117) U/L Troponin I High Sens 4.7 (<3.5-35.0) ng/L B-Natriuretic Peptide 92 (<100) pg/mL Total Protein 7.0 (6.5-8.0) g/dL Albumin 4.0 (3.5-5.0) g/dL Lipase 21 (8-78) U/L TSH 1.72 (0.32-4.0) uIU/mL Ethyl Alcohol < 10 mg/dL Influenza Type A (PCR) NEGATIVE (Negative) Influenza Type B (PCR) NEGATIVE (Negative) RSV RNA Qual (PCR) NEGATIVE (Negative) SARS-CoV-2 RNA (RT-PCR) NEGATIVE (Negative) Independent Interpretation I performed an independent interpretation of an: EKG and Plain X-Ray Interpretation: Rate: 113 Rhythm: afib [place]: left Normal QRS complex. ST T wave : no [place], inverted t wave V1 qTC: 422 prior studies: new afib The study has been interpreted contemporaneously by me. . Radiology Impression Discussion of test interpretation with radiology: I have reviewed the radiologist's reading. External Record Review External record reviewed: Outpatient record Prescription Management I considered prescription management with: Other Critical Care Time Critical Care Time Critical Care Time: Yes Total Critical Care Time: 35 Attestation: medical consult, family discussion, transfer to OR for cardioversion I attest to this time spent taking care of the patient Discharge Plan Discharge Clinical Impression: Atrial fibrillation with rapid ventricular response, Cardiomyopathy Patient Disposition: Admitted As Inpatient Prescriptions: No Action allopurinol 100 mg tablet 100 mg PO DAILY 30 Days Qty: 30 2RF omeprazole 40 mg capsule,delayed release(DR/EC) 40 mg PO DAILY 90 Days Qty: 90 0RF colchicine 0.6 mg tablet 0.6 mg PO DAILY PRN (Reason: gout) 10 Days Qty: 30 0RF Rx Instructions: 2 tabs with onset of pain, then 1 tab 1 hr after first dose amlodipine 5 mg tablet 5 mg PO DAILY 90 Days Qty: 90 1RF lisinopril 40 mg tablet 40 mg PO DAILY 90 Days Qty: 90 1RF levothyroxine 175 mcg tablet 175 mcg PO DAILY testosterone 10 mg/0.5 gram /actuation gel in metered-dose pump 20 mg topical DAILY aspirin [Adeel Low Dose Aspirin] 81 mg Tablet,Delayed Release (Dr/Ec) 81 mg PO DAILY ibuprofen 800 mg tablet 800 mg PO TID Print Language: Pakistani
[2024-10-10 10:28] LABS: Basophils Absolute Auto 0.1 X10*3/uL (0.0-0.2); Basophils Percent Auto 0.7 % (0-2); Eosinophils Absolute Auto 0.2 X10*3/uL (0.0-0.4); Eosinophils Percent Auto 2.8 % (0-4); Hematocrit 46.5 % (42.0-52.0); Hemoglobin 16.6 g/dl (14.0-18.0); Imm Gran Abs Auto 0.03 X10*3/uL (0.00-0.03); Imm Gran Pct Auto 0.4 % (0.0-0.4); Lymphocytes Percent Auto 15.4 % (20-40); Mean Corpuscular HGB Conc 35.7 g/dl (31.0-36.0); Mean Corpuscular Hemoglobin 34.2 pg (27.0-33.0); Mean Corpuscular Volume 95.9 fL (80.0-98.0); Mean Platelet Volume 9.6 fL (9.4-12.4); Monocytes Absolute Auto 0.7 X10*3/uL (0.1-1.2); Monocytes Percent Auto 10.4 % (2-11); Neutrophils Absolute Auto 4.8 x10*3/uL (2.0-8.3); Neutrophils Percent Auto 70.3 % (45-73); Platelet Count 183 X10*3/uL (160-400); Red Blood Count 4.85 X10*6/uL (4.60-5.80); Red Cell Distribution Width 13.3 % (11.0-16.0); White Blood Count 6.8 X10*3/uL (4.8-10.8)
[2024-10-10 10:32] LABS: Prothrombin Time 12.2 SEC (10.9-12.4)
[2024-10-10 10:40] LABS: Ethanol < 10 mg/dL
[2024-10-10 10:48] LABS: B Type Natriuretic Peptide 92 pg/mL (<100)
[2024-10-10 10:50] LABS: Troponin-I High Sensitivity 4.7 ng/L (<3.5-35.0)
[2024-10-10 10:51] LABS: Alanine Aminotransferase 24 U/L (0-40); Alkaline Phosphatase 55 U/L (39-117); Anion Gap 10 (12-20); Aspartate Amino Transferase 27 U/L (5-37); Bilirubin Direct 0.2 mg/dL (0.0-0.5); Bilirubin Total 0.4 mg/dL (0.0-1.0); Blood Urea Nitrogen 15 mg/dL (9-16); Calcium 8.5 mg/dL (8.4-10.2); Carbon Dioxide 26 mmol/L (22-29); Chloride 105 mmol/L (96-108); Creatinine Clr Calc Pharmacy 119.5; Estimated Glomerular Filt Rate > 60; Glucose Random 113 mg/dL (60-115); Lipase 21 U/L (8-78); Magnesium 1.9 mg/dL (1.6-2.6); Potassium 4.3 mmol/L (3.3-5.1); Sodium 137 mmol/L (135-145)
--- NOTE | 2024-10-10 11:00 | P.CONCA_ITS ---
History of Present Illness History of Present Illness Date of Service: 10/10/24 Requesting physician: Anusha Bobby Chief complaint: AFIB Narrative: 59-year-old gentleman with background history of hypertension who came for exercise stress test and was noticed to be in atrial fibrillation with rapid ventricular response and sent to the emergency department. The patient is saying that he had no symptoms. He recently saw his primary care physician and was referred for stress testing. He did not have significant symptoms and is denying any chest discomfort shortness of breath. He is saying over the holidays he has been drinking more alcohol than usual. He has no palpitations, chest discomfort or shortness of breath. No symptoms/signs of heart failure. Chronic lower extremity edema due to lower extremity venous reflux for which she has undergone ablation. Left lower extremities always more swollen than the right side. No significant history otherwise. He is nondiabetic. He has no peripheral vascular disease or previous CVA/coronary disease. [facility] Past Medical History Medical History COVID-19 vaccine series completed Renal calculi Gout Hypertension CANDY (obstructive sleep apnea) Hypothyroid Hypogonadism Surgical History Surgical History No pertinent past surgical history Social History Social History Housing: House Alcohol intake: current Alcohol intake frequency: a few times a month Alcohol type: beer Patient Tobacco Use Status: Never used Tobacco Smoked in Last 30 Days: No e-Cigarette/Vaping Use: Never Used Second Hand Smoke Exposure: No Use of substances other than those prescribed or required for medical reasons: No Advance Directives: No Advance Directives Information Provided: Yes Do you have a plan to hurt others: No Plan service: No Current occupational status: employed 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 [employer] [place] Current occupational exposures/hazards: No Cognitive needs: No Hearing needs: No Vision needs: No Meds Allergies Allergy/AdvReac Type Severity Reaction Status Date / Time No Known Allergies Allergy Verified 10/10/24 10:09 Home Medications ?Medication ?Instructions ?Recorded ?Confirmed ?Last Taken ?Type levothyroxine 175 mcg tablet 175 mcg PO DAILY 06/14/21 08/04/22 11/15/21 History testosterone 10 mg/0.5 20 mg topical DAILY 06/14/21 08/04/22 Unknown History gram/actuation transdermal gel pump ibuprofen 800 mg tablet 800 mg PO TID 11/05/21 08/04/22 Unknown History aspirin 81 mg tablet,delayed 81 mg PO DAILY 11/08/21 08/04/22 Unknown History release (Adeel Low Dose Aspirin) Physical Exam 2 Vital Signs: Vital Signs: Last Vital Signs Temp 98.1 F 10/10/24 10:03 Pulse 120 H 10/10/24 10:48 Resp 25 H 10/10/24 10:03 BP 136/79 10/10/24 10:03 Pulse Ox 97 10/10/24 10:03 BMI result Body Mass Index 43.8 GENERAL APPEARANCE: in no acute distress, pleasant. NECK: no carotid bruit, no jugular venous distention. SKIN: no suspicious lesions, warm and dry. HEART: no murmurs, irregular rate and rhythm. LUNGS: clear to auscultation bilaterally. ABDOMEN: soft, nontender. EXTREMITIES: no edema. PERIPHERAL PULSES: equal. NEUROLOGIC: No gross deficits, AAO X 3 Objective Labs and Meds 10/10/24 10:20 10/10/24 10:20 Lab results: Laboratory Results - last 24 hr 10/10/24 10:20 WBC 6.8 RBC 4.85 Hgb 16.6 Hct 46.5 MCV 95.9 MCH 34.2 H MCHC 35.7 RDW 13.3 Plt Count 183 MPV 9.6 Immature Gran % (Auto) 0.4 Neut % (Auto) 70.3 Lymph % (Auto) 15.4 L [place] % (Auto) 10.4 Eos % (Auto) 2.8 Baso % (Auto) 0.7 Lymph # (Auto) 1.0 L [place] # (Auto) 0.7 Eos # (Auto) 0.2 Baso # (Auto) 0.1 Abs Immat Gran (auto) 0.03 Absolute Neuts (auto) 4.8 Absolute Nucleated RBC 0.000 Nucleated RBC % (auto) 0.0 PT 12.2 INR 1.0 Sodium 137 Potassium 4.3 Chloride 105 Carbon Dioxide 26 Anion Gap 10 L BUN 15 Creatinine 0.95 Estim Creat Clear Calc 119.5 Estimated GFR > 60 Random Glucose 113 Calcium 8.5 Magnesium 1.9 Total Bilirubin 0.4 Direct Bilirubin 0.2 AST 27 ALT 24 Alkaline Phosphatase 55 Troponin I High Sens 4.7 B-Natriuretic Peptide 92 Total Protein 7.0 Albumin 4.0 Lipase 21 Ethyl Alcohol < 10 Assessment and Plan (1) Atrial fibrillation with rapid ventricular response: Status: Acute Plan [age] year gentleman who is here for new onset atrial fibrillation. He is clinically asymptomatic and stable. Likely related to alcohol intake. Blood pressure is well controlled. Add 25 mg p.o. b.i.d. metoprolol. Start him on Eliquis 5 mg twice a day. We will check echocardiogram. If echo has cardiomyopathy then he will need BRICE cardioversion during this visit. On the other hand if echo shows normal LVEF then given the fact that he has no symptoms currently and is not in heart failure I think we can rate control him with oral metoprolol and potentially cardiovert him in 4-5 weeks as outpatient without BRICE. I have explained this to the patient in detail. Stop the ibuprofen. Check thyroid panel given his history of hypothyroidism. Thank you for allowing me to participate in the care of your patient. Please feel free to contact me if you have any questions. Procedures Date of Service Date of Service: 10/10/24
[2024-10-10] MEDS: Apixaban 5 MG TABLET PO ×2 (11:05→19:54)
[2024-10-10] MEDS: Metoprolol Tartrate 25 MG TABLET PO (11:05)
[2024-10-10 11:09] LABS: TSH reflex Free T4 1.72 uIU/mL (0.32-4.0)
[2024-10-10 11:17] LABS: Influenza A PCR NEGATIVE (Negative); Influenza B PCR NEGATIVE (Negative); Resp Syncy Virus RNA Qual PCR NEGATIVE (Negative); SARS COV2 PCR INHOUSE NEGATIVE (Negative)
--- NOTE | 2024-10-10 12:25 | PC.NURSE ---
patient getting bedside echo
--- NOTE | 2024-10-10 13:42 | P.CONAN_ITS ---
[facility] Active Problems Active Problems: All Active Problems Atrial fibrillation with rapid ventricular response (Acute) SOB (shortness of breath) (Acute) Varicose veins of right lower extremity with inflammation (Acute) Bradycardia (Acute) Screening for colon cancer (Acute) Gout (Acute) Physical exam (Acute) Screening PSA (prostate specific antigen) (Acute) Varicose veins of bilateral lower extremities with pain (Acute) Varicose veins of left lower extremity with inflammation (Acute) Past Medical History Medical History COVID-19 vaccine series completed Renal calculi Gout Hypertension CANDY (obstructive sleep apnea) Hypothyroid Hypogonadism Functional capacity: independent ambulation Family History Family history of problems with anesthesia: No Surgical History Surgical History No pertinent past surgical history History of Problems with Anesthesia: No Social History Social History Housing: House Alcohol intake: current Alcohol intake frequency: a few times a month Alcohol type: beer Patient Tobacco Use Status: Never used Tobacco Smoked in Last 30 Days: No e-Cigarette/Vaping Use: Never Used Second Hand Smoke Exposure: No Use of substances other than those prescribed or required for medical reasons: No Advance Directives: No Advance Directives Information Provided: Yes Do you have a plan to hurt others: No Plan service: No Current occupational status: employed 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 Current occupational exposures/hazards: No Cognitive needs: No Hearing needs: No Vision needs: No Meds Allergies Allergy/AdvReac Type Severity Reaction Status Date / Time No Known Allergies Allergy Verified 10/10/24 10:09 Home Medications ?Medication ?Instructions ?Recorded ?Confirmed ?Last Taken ?Type levothyroxine 175 mcg tablet 175 mcg PO DAILY 06/14/21 08/04/22 11/15/21 History testosterone 10 mg/0.5 20 mg topical DAILY 06/14/21 08/04/22 Unknown History gram/actuation transdermal gel pump ibuprofen 800 mg tablet 800 mg PO TID 11/05/21 08/04/22 Unknown History aspirin 81 mg tablet,delayed 81 mg PO DAILY 11/08/21 08/04/22 Unknown History release (Adeel Low Dose Aspirin) Exam Height,Weight and Vital Signs: Height 5 ft 11 in Weight 142.5 kg Last Vital Signs Temp 98.1 F 10/10/24 10:03 Pulse 90 10/10/24 12:05 Resp 20 10/10/24 12:05 BP 116/86 10/10/24 12:05 Pulse Ox 95 10/10/24 12:05 O2 Del Method Room Air 10/10/24 12:05 Pertinent Lab Results Pertinent Lab Results: Laboratory Tests 10/10/24 10:20 WBC 6.8 RBC 4.85 Hgb 16.6 Hct 46.5 MCV 95.9 MCH 34.2 H MCHC 35.7 RDW 13.3 Plt Count 183 MPV 9.6 Immature Gran % (Auto) 0.4 Neut % (Auto) 70.3 Lymph % (Auto) 15.4 L [place] % (Auto) 10.4 Eos % (Auto) 2.8 Baso % (Auto) 0.7 Lymph # (Auto) 1.0 L [place] # (Auto) 0.7 Eos # (Auto) 0.2 Baso # (Auto) 0.1 Abs Immat Gran (auto) 0.03 Absolute Neuts (auto) 4.8 Absolute Nucleated RBC 0.000 Nucleated RBC % (auto) 0.0 PT 12.2 INR 1.0 Sodium 137 Potassium 4.3 Chloride 105 Carbon Dioxide 26 Anion Gap 10 L BUN 15 Creatinine 0.95 Estim Creat Clear Calc 119.5 Estimated GFR > 60 Random Glucose 113 Calcium 8.5 Magnesium 1.9 Total Bilirubin 0.4 Direct Bilirubin 0.2 AST 27 ALT 24 Alkaline Phosphatase 55 Troponin I High Sens 4.7 B-Natriuretic Peptide 92 Total Protein 7.0 Albumin 4.0 Lipase 21 TSH 1.72 Ethyl Alcohol < 10 Influenza Type A (PCR) NEGATIVE Influenza Type B (PCR) NEGATIVE RSV RNA Qual (PCR) NEGATIVE SARS-CoV-2 RNA (RT-PCR) NEGATIVE Assessment and Plan Final Anesthetic Review Family History of Problems with Anesthesia: No History of Problems with Anesthesia: No
--- NOTE | 2024-10-10 14:29 | MHC.SHP ---
Pre-Procedural Eval Section A - 24 Hr Update-Section A only Date of Service: 10/10/24 The patient is an INPATIENT: Yes Section B - Complete if H&P > 30 days Chief Complaint: AFIB and cardiomyopathy Allergies: Allergies Allergy/AdvReac Type Severity Reaction Status Date / Time No Known Allergies Allergy Verified 10/10/24 10:09 Plan Diagnosis/Plan: Unchanged I have reviewed the history and physical and performed a pertinent physical examination on my patient. No changes have occurred unless specified. Time Spent With Patient Time: Total time managing care of this patient today ____ minutes.
--- NOTE | 2024-10-10 14:40 | CA_ITS ---
Transesophageal Echocardiogram Patient (Last, First, Middle): Mariusz Orlando T Gender: Male Date of : 1965 Age: 59 Procedure Date: 10/10/2024 Procedure Type: Transesophageal Echocardiogram Location: [facility] [place] Height: 180.34 cm Weight: 142.43 kg BSA: 2.55 m2 Heart Rate: bpm BP: 115 / 76 mmHg Aircraft Electronics Technical Officer: JOHN Referring MD: Madhav Cm MD Symptoms: Afib Conclusion: ??? Normal left ventricular cavity size. The left ventricular systolic function is moderately decreased. The visually estimated ejection fraction is between 30-35%. ??? Normal right ventricular cavity size. There is low normal right ventricular systolic function. ??? There is no evidence of a thrombus in the left atrial appendage. LA is dilated. Findings Left Ventricle Normal left ventricular cavity size. The left ventricular systolic function is moderately decreased. The visually estimated ejection fraction is between 30-35%. Right Ventricle Normal right ventricular cavity size. There is low normal right ventricular systolic function. Atria There is no evidence of a thrombus in the left atrial appendage. LA is dilated. Aortic Valve There is a normal trileaflet aortic valve. There is no aortic valve stenosis. There is no aortic valve regurgitation. Mitral Valve The mitral valve appears normal. There is trace mitral valve regurgitation. There is no mitral valve stenosis. Pulmonic Valve The pulmonic valve is likely normal. Tricuspid Valve Normal tricuspid valve structure. There is trace tricuspid valve regurgitation. Great Vessels All visible segments of the aorta are normal in size. Pericardium/Pleural There is no evidence of pericardial effusion. Updated by Madhav Cm on 08:30 PM with Status of Final Madhav Cm MD electronically signed on 10/10/2024 8:30:36 PM with status of Final
--- NOTE | 2024-10-10 14:56 | PC.NURSE ---
ruma nuñez rn to sign patient out of sss and text scientific programmer analyst when its time.
--- NOTE | 2024-10-10 16:24 | HO.CARDIVERS ---
Cardioversion Procedure Note Cardioversion Date of Procedure: 10/10/2024 Ordering Provider: Madhav Cm Performing Provider: Madhav Cm Indication for Procedure: New onset atrial fibrillation and cardiomyopathy. Performed with Transesophageal Echo: Yes BRICE findings (if BRICE Performed): No thrombus in left atrium or left atrial appendage. History: [age] year gentleman with new onset atrial fibrillation and cardiomyopathy. Consent: Verbal and Written consent was obtained from the patient before starting. The patient was made aware of the risk of stroke, skin verde, arrhythmia and failure to achieve sinus rhythm. Procedure: After consent obtained, defib pads were attached and the patient was sedated by the anesthesia team. Once adequate sedation achieved, single synchronized shock of 200 joules was given which converted the rhythm to sinus. Complications: No acute complications. Recommendations: Continue apixaban 5 mg twice a day. We will change medications for management of cardiomyopathy. Adding amiodarone 400 mg twice a day. He will be loaded for 14 days and then transitioned to 200 mg daily.
--- NOTE | 2024-10-10 17:13 | PM.IMHP ---
History of Present Illness Date of Service: 10/10/24 Chief Complaint: afib 59M PMH hypothyroid, morbid obesity, HTN, gout, presented with rapid afib. patient had been asymptomatic. Was undergoing screening stress test and found to be in rapid AFib. Patient denies any chest pain or shortness for breath. In ED echocardiogram revealed cardiomyopathy with an EF 25% therefore decision was made to undergo BRICE and cardioversion which was done successfully. Review of Systems Review of Systems: Yes all other systems are reviewed and are negative [facility] Medical History COVID-19 vaccine series completed Renal calculi Gout Hypertension CANDY (obstructive sleep apnea) Hypothyroid Hypogonadism Functional capacity: independent ambulation Surgical History Hx of colonoscopy Social History Housing: House Are you a primary long term care phlebotomist to a significant other at home: No Do you presently have visiting nurse or other home services: No Alcohol intake: current Alcohol intake frequency: a few times a month Alcohol type: beer Patient Tobacco Use Status: Never used Tobacco Smoked in Last 30 Days: No e-Cigarette/Vaping Use: Never Used Second Hand Smoke Exposure: No Use of substances other than those prescribed or required for medical reasons: No Have you been hit, kicked, punched, or otherwise hurt by someone within the past year? 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 [employer] Current occupational exposures/hazards: No Cognitive needs: No Hearing needs: No Vision needs: No Meds Allergies Allergy/AdvReac Type Severity Reaction Status Date / Time No Known Allergies Allergy Verified 10/10/24 14:47 Active Medications: Current Medications Acetaminophen (Acetaminophen 325 Mg Tablet) 650 mg PO Q6H PRN PRN Reason: Pain, Mild 1-3,fever,headache Amiodarone HCl (Amiodarone Hcl 200 Mg Tablet) 400 mg PO BID SINTIA Apixaban (Apixaban 5 Mg Tablet) 5 mg PO BID SINTIA Calcium Carbonate (Calcium Carbonate 750 Mg Tab.Chew) 750 mg PO Q4H PRN PRN Reason: Heartburn Levothyroxine Sodium (Levothyroxine Sodium 175 Mcg Tablet) 175 mcg PO DAILY@0600 [facility] Losartan Potassium (Losartan Potassium 50 Mg Tablet) 50 mg PO DAILY [facility]; Protocol Magnesium Hydroxide (Milk Of Magnesia 30 Ml Oral.Susp) 30 ml PO DAILY PRN PRN Reason: Constipation Melatonin (Melatonin 3 Mg Tablet) 6 mg PO BEDTIME PRN PRN Reason: Insomnia Sodium Chloride (0.9 % Sodium Chloride Flush 3 Ml Syringe) 3 ml IVFLUSH QSHIFT [facility] Home Medications ?Medication ?Instructions ?Recorded ?Confirmed ?Last Taken ?Type levothyroxine 175 mcg tablet 175 mcg PO DAILY 06/14/21 10/10/24 10/10/24 History testosterone 10 mg/0.5 20 mg topical DAILY 06/14/21 10/10/24 10/10/24 History gram/actuation transdermal gel pump ibuprofen 800 mg tablet 800 mg PO TID 11/05/21 10/10/24 10/10/24 History aspirin 81 mg tablet,delayed 81 mg PO DAILY 11/08/21 10/10/24 10/10/24 History release (Adeel Low Dose Aspirin) Physical Exam Vital Signs and Narrative: Vital Signs: Last Vital Signs Temp 99.3 F 10/10/24 16:23 Pulse 63 10/10/24 16:57 Resp 20 10/10/24 16:57 BP 99/69 10/10/24 16:57 Pulse Ox 94 10/10/24 16:57 O2 Del Method Room Air 10/10/24 16:57 BMI result Body Mass Index 43.8 General: AO X 3, no acute distress Resp: CTA bilateral, no accessory muscles used CVS: S1,S2,RRR GI: soft, non tender, non distended Neuro: motor grossly intact, alert Psych: appropriate affect, appropriate insight Results Labs 10/10/24 10:20 10/10/24 10:20 Labs: Laboratory Results - last 24 hr 10/10/24 10:20 MCV 95.9 MCH 34.2 H MCHC 35.7 RDW 13.3 Plt Count 183 MPV 9.6 Immature Gran % (Auto) 0.4 Neut % (Auto) 70.3 Lymph % (Auto) 15.4 L [place] % (Auto) 10.4 Eos % (Auto) 2.8 Baso % (Auto) 0.7 Lymph # (Auto) 1.0 L [place] # (Auto) 0.7 Eos # (Auto) 0.2 Baso # (Auto) 0.1 Abs Immat Gran (auto) 0.03 Absolute Neuts (auto) 4.8 Absolute Nucleated RBC 0.000 Nucleated RBC % (auto) 0.0 PT 12.2 INR 1.0 Anion Gap 10 L Estim Creat Clear Calc 119.5 Estimated GFR > 60 Random Glucose 113 Calcium 8.5 Magnesium 1.9 Total Bilirubin 0.4 Direct Bilirubin 0.2 AST 27 ALT 24 Alkaline Phosphatase 55 Troponin I High Sens 4.7 B-Natriuretic Peptide 92 Total Protein 7.0 Albumin 4.0 Lipase 21 TSH 1.72 Ethyl Alcohol < 10 Influenza Type A (PCR) NEGATIVE Influenza Type B (PCR) NEGATIVE RSV RNA Qual (PCR) NEGATIVE SARS-CoV-2 RNA (RT-PCR) NEGATIVE Imaging Radiologist's Impressions: Impressions Chest X-Ray 10/10/24 10:03 IMPRESSION: Trace left pleural effusion with minimal adjacent streaky opacities in the lower lateral left lung base. No new focal consolidation. This study was presented today to October 10, 2024 for interpretation. Stat results provided at this time as requested by referring provider. Electronically signed by: Dannielle Strickland MD 10/10/2024 11:27 AM [facility] Assessment and Plan (1) Cardiomyopathy: Qualifiers: Cardiomyopathy type: unspecified Qualified Code(s): I42.9 - Cardiomyopathy, unspecified Status: Acute Plan 59M PMH hypothyroid, morbid obesity, HTN, gout, presented with rapid afib, found to have cardiomyopathy now status post BRICE cardioversion New onset atrial fibrillation with cardiomyopathy EF of 25% Status post BRICE cardioversion Started on amiodarone 400 mg b.i.d. and apixaban Lisinopril changed to losartan, eventual plan for Entresto Discontinue aspirin which was for primary prophylaxis Hypertension Now with low normal blood pressure, discontinue amlodipine to make room for cardiac meds Hypothyroid Continue levothyroxine TSH 1.72 Morbid obesity Weight loss recommended DVT prophylaxis with Eliquis Full code Quality Stroke Does the patient have a stroke diagnosis?: No VTE Prior VTE?: No VTE Risk Level:: Medical - moderate - high VTE Device Contraindication: Treatment Not Indicated VTE Drug Contraindication: N/A - Med Ordered
[2024-10-10] MEDS: Amiodarone HCL 200 MG TABLET 400 MG PO (19:54)
[2024-10-10] MEDS: 0.9 % Sodium Chloride Flush 3 ML SYRINGE IVFLUSH (19:55)
--- NOTE | 2024-10-10 22:02 | PHA.MEDREC ---
Pharmacy Consult ? Medication Reconciliation Pharmacy has reviewed the medication reconciliation completed by nursing. Claims match.
[2024-10-11 03:51] VITALS: BP 112/65; PULSE 58; RESP 18; TEMP 36.3; O2SAT 97
[2024-10-11 07:45] VITALS: BP 119/75; PULSE 65; RESP 16; TEMP 36.6; O2SAT 97
[2024-10-11] MEDS: Amiodarone HCL 200 MG TABLET 400 MG PO (08:12)
[2024-10-11] MEDS: Losartan Potassium 50 MG TABLET PO (08:12)
[2024-10-11] MEDS: Apixaban 5 MG TABLET PO (08:12)
--- NOTE | 2024-10-11 08:13 | HO.POSTANES ---
Post Anesthesia Evaluation Post Anesthesia Evaluation Date of Service: 10/11/24 Vital Signs: Vital Signs Temp Pulse Resp BP Pulse Ox O2 Del Method 10/11/24 07:45 97.8 F 65 16 119/75 97 Room Air 10/11/24 03:51 97.4 F 58 18 112/65 97 Room Air 10/10/24 23:44 97.8 F 66 18 124/67 94 Room Air Anesthesia: Monitored Mental Status: Awake Pain Control: Satisfactory Nausea/Vomiting: None Hydration: Adequate Anesthesia-Related Issues: No Anes. Related Issues
[2024-10-11] MEDS: 0.9 % Sodium Chloride Flush 3 ML SYRINGE IVFLUSH (08:14)
--- NOTE | 2024-10-11 09:30 | P.DS_ITS ---
DS: Providers Provider Date of Service: 10/11/24 Date of admission: 10/10/24 17:12 Date of discharge: 10/11/24 Primary care physician: YOANDY Bright Consults: 10/10/24 11:15 Consult to Cardiology Routine Consulting Provider: [facility] Reason for consultation: PAF Has provider been notified: Yes DS: Diagnosis Discharge Diagnosis (1) Cardiomyopathy: Status: Acute DS: Summary Hospital Course Hospital Course: from initial hpi: 59M PMH hypothyroid, morbid obesity, HTN, gout, presented with rapid afib. patient had been asymptomatic. Was undergoing screening stress test and found to be in rapid AFib. Patient denies any chest pain or shortness for breath. In ED echocardiogram revealed cardiomyopathy with an EF 25% therefore decision was made to undergo BRICE and cardioversion which was done successfully. hospital course: Patient was observed for new onset atrial fibrillation with cardiomyopathy with an EF of 25%. Underwent BRICE cardioversion and successfully converted to normal sinus rhythm. Was started on amiodarone 400 mg b.i.d. to decrease to 200 mg daily after 2 weeks. Also started on apixaban, Toprol,, losartan. Discontinued aspirin, lisinopril, ibuprofen, amlodipine. For hypothyroid was continued levothyroxine, for morbid obesity weight loss recommended. Time Attestation Discharge Coordination Time (in mins): 35 Quality: Safe Use of Opioids Does Pt have an Active Cancer Diagnosis on the Problem List?: No Quality: Stroke Does the patient have a stroke diagnosis?: No Physical Exam Vital Signs: Vital Signs: Last Vital Signs Temp 97.8 F 10/11/24 07:45 Pulse 65 10/11/24 07:45 Resp 16 10/11/24 07:45 BP 119/75 10/11/24 07:45 Pulse Ox 97 10/11/24 07:45 O2 Del Method Room Air 10/11/24 07:45 BMI result Body Mass Index 44.4 General: AO X 3, no acute distress Resp: CTA bilateral, no accessory muscles used CVS: S1,S2,RRR GI: soft, non tender, non distended Neuro: motor grossly intact, alert Psych: appropriate affect, appropriate insight DS: Data Data Completed and Pending Labs on day of discharge: Laboratory Results - last 24 hr 10/10/24 10:20 WBC 6.8 RBC 4.85 Hgb 16.6 Hct 46.5 MCV 95.9 MCH 34.2 H MCHC 35.7 RDW 13.3 Plt Count 183 MPV 9.6 Immature Gran % (Auto) 0.4 Neut % (Auto) 70.3 Lymph % (Auto) 15.4 L [place] % (Auto) 10.4 Eos % (Auto) 2.8 Baso % (Auto) 0.7 Lymph # (Auto) 1.0 L [place] # (Auto) 0.7 Eos # (Auto) 0.2 Baso # (Auto) 0.1 Abs Immat Gran (auto) 0.03 Absolute Neuts (auto) 4.8 Absolute Nucleated RBC 0.000 Nucleated RBC % (auto) 0.0 PT 12.2 INR 1.0 Sodium 137 Potassium 4.3 Chloride 105 Carbon Dioxide 26 Anion Gap 10 L BUN 15 Creatinine 0.95 Estim Creat Clear Calc 119.5 Estimated GFR > 60 Random Glucose 113 Calcium 8.5 Magnesium 1.9 Total Bilirubin 0.4 Direct Bilirubin 0.2 AST 27 ALT 24 Alkaline Phosphatase 55 Troponin I High Sens 4.7 B-Natriuretic Peptide 92 Total Protein 7.0 Albumin 4.0 Lipase 21 TSH 1.72 Ethyl Alcohol < 10 Influenza Type A (PCR) NEGATIVE Influenza Type B (PCR) NEGATIVE RSV RNA Qual (PCR) NEGATIVE SARS-CoV-2 RNA (RT-PCR) NEGATIVE Discharge Plan Discharge Anticipated Discharge Date/Time: 10/11/24 09:26 Patient Disposition: Home, Self-Care Discharge Diagnosis: afib, cardiomyopathy Referrals: Mariusz Fish [employer]- [Primary Care Provider] - 1 Week Discharge Medications: New Eliquis 5 mg Tablet 5 mg PO BID Qty: 180 0RF amiodarone 200 mg Tablet 400 mg PO BID Qty: 118 0RF Rx Instructions: 400mg bid for 14 days total, then decrease to 200mg daily losartan 50 mg Tablet 50 mg PO DAILY Qty: 90 0RF Protocol: Hold for SBP< HOLD for SBP < : 90 metoprolol succinate [Toprol XL] 25 mg tablet extended release 24 hr 25 mg PO DAILY Qty: 90 0RF Continued levothyroxine 175 mcg tablet 175 mcg PO DAILY testosterone 10 mg/0.5 gram /actuation gel in metered-dose pump 20 mg topical DAILY Discontinued amlodipine 5 mg tablet 5 mg PO DAILY 90 Days Qty: 90 1RF lisinopril 40 mg tablet 40 mg PO DAILY 90 Days Qty: 90 1RF aspirin [Adeel Low Dose Aspirin] 81 mg Tablet,Delayed Release (Dr/Ec) 81 mg PO DAILY ibuprofen 800 mg tablet 800 mg PO TID Discharge Orders: Discharge Order (Routine); Ordered 10/11/24 Ordered By: Randall Mane Diet: Advance to usual diet Activity on Discharge: As tolerated Stand Alone Forms: Patient Portal Discharge page Print Language: [place] Care Plan Goals: manage cardiomyopathy, afib Health Concerns: cardiomyopathy, afib Plan of Treatment: med changes as noted follow up with cardiology Assessment: see above
--- NOTE | 2024-10-11 09:39 | MHC.CM.PN ---
EMR REVIEWED, PT W/AFIB, CARDIO PENDING HOWEVER PT REPORTS IF THAT GOES WELL HE WILL BE CLEARED FOR DC TODAY. PT REPORTS HE LIVES W/ AND 3 KIDS, IS FULLY INDEP W/ALL CARE, CPAP IS ONLY DME, NO HOME SERVICES, GOAL FOR DC IS TO DC TODAY. PCP/HCP ON FILE VERIFIED. ANTIC PT WILL DC HOME SELF CARE TODAY W/FAMILY FOR TRANSPORT
--- NOTE | 2024-10-11 10:14 | PM.PNCARD ---
Subjective Subjective Date of Service: 10/11/24 Principal diagnosis: S/P BRICE Cardioversion Interval history: Patient underwent BRICE cardioversion yesterday. Patient had 1 brief episode of AFib RVR in the 160s in the evening, patient was asymptomatic. Patient feels well today. No complaints. Physical Exam Vital Signs: Last Vital Signs Temp 97.8 F 10/11/24 07:45 Pulse 65 10/11/24 07:45 Resp 16 10/11/24 07:45 BP 119/75 10/11/24 07:45 Pulse Ox 97 10/11/24 07:45 O2 Del Method Room Air 10/11/24 07:45 BMI result Body Mass Index 44.4 Const General: cooperative, healthy appearing, comfortable and no acute distress Orientation/consciousness: patient oriented x3 HEENT Other: Unremarkable Head: Yes normal to inspection Neck Neck: Yes normal visual inspection, Yes trachea midline and Yes supple Chest Chest palpation & inspection: normal inspection of the chest Resp Effort & Inspection: normal respiratory effort Auscultation: clear to auscultation bilaterally, no crackles, no rales, no rhonchi and no wheezes Cardio Jugular venous distension: no JVD Palpation: normal PMI Rate: regular rate Rhythm: regular rhythm Heart sounds: S1 normal heart sound present, S2 normal heart sound present, no click, no gallops, no murmurs and no rubs Peripheral pulses: Peripheral pulses 2+ throughout GI Palpation (GI): Soft to palpation Auscultation: normal bowel sounds Back/Spine/Pelvis Other: unremarkable Skin General skin exam: no rashes or lesions noted Neuro General: patient oriented x3 Extrem General: Yes normal to inspection, No calf tenderness, No clubbing, No cyanosis and No edema Psych Appearance: grossly normal Mental Status: mental status grossly normal Objective Labs and Meds 10/10/24 10:20 10/10/24 10:20 Lab results: Laboratory Results - last 24 hr 10/10/24 10:20 WBC 6.8 RBC 4.85 Hgb 16.6 Hct 46.5 MCV 95.9 MCH 34.2 H MCHC 35.7 RDW 13.3 Plt Count 183 MPV 9.6 Immature Gran % (Auto) 0.4 Neut % (Auto) 70.3 Lymph % (Auto) 15.4 L [place] % (Auto) 10.4 Eos % (Auto) 2.8 Baso % (Auto) 0.7 Lymph # (Auto) 1.0 L [place] # (Auto) 0.7 Eos # (Auto) 0.2 Baso # (Auto) 0.1 Abs Immat Gran (auto) 0.03 Absolute Neuts (auto) 4.8 Absolute Nucleated RBC 0.000 Nucleated RBC % (auto) 0.0 PT 12.2 INR 1.0 Sodium 137 Potassium 4.3 Chloride 105 Carbon Dioxide 26 Anion Gap 10 L BUN 15 Creatinine 0.95 Estim Creat Clear Calc 119.5 Estimated GFR > 60 Random Glucose 113 Calcium 8.5 Magnesium 1.9 Total Bilirubin 0.4 Direct Bilirubin 0.2 AST 27 ALT 24 Alkaline Phosphatase 55 Troponin I High Sens 4.7 B-Natriuretic Peptide 92 Total Protein 7.0 Albumin 4.0 Lipase 21 TSH 1.72 Ethyl Alcohol < 10 Influenza Type A (PCR) NEGATIVE Influenza Type B (PCR) NEGATIVE RSV RNA Qual (PCR) NEGATIVE SARS-CoV-2 RNA (RT-PCR) NEGATIVE Imaging Radiologist's impression: Impressions Chest X-Ray 10/10/24 10:03 IMPRESSION: Trace left pleural effusion with minimal adjacent streaky opacities in the lower lateral left lung base. No new focal consolidation. This study was presented today to October 10, 2024 for interpretation. Stat results provided at this time as requested by referring provider. Electronically signed by: Dannielle Strickland MD 10/10/2024 11:27 AM [facility] Progress Note: A&P Assessment and plan (1) Atrial fibrillation with rapid ventricular response: Status: Acute Plan 59 year old patient s/p BRICE/cardioversion. In sinus rhythm. Patient was started on Eliquis 5 mg b.i.d. and started on amiodarone loading dose, tolerating well. Continue amiodarone loading dose for 2 weeks and then take 200 mg daily. Can start on low-dose beta-javier. We will resume with outpatient cardiology visit as necessary. Thank you for allowing me to participate in the care of your patient. Please feel free to contact me if you have any questions. Assessment and plan per Dr. Cm. Time Spent With Patient Time: Total time managing care of this patient today ____ minutes. Progress Note: Quality Stroke Does the patient have a stroke diagnosis?: No Procedures Date of Service Date of Service: 10/11/24
--- OUTSIDE RECORDS SUMMARY | 2024-10-27 08:11 | XMS_ITS ---
Author Organization [facility] Address [address] [place] [phone] Care Team Providers Care Dial Maker Name Role Phone SANKET MORILLO Primary Care Provider Vivek Garcia Jr [phone] REASON FOR VISIT looking for soon am appointment for cholelithiasis Encounters Encounter Location Date Provider Diagnosis [facility] [address] [place] [phone] 10/26/2024 Vivek Keller Jr PLAN OF TREATMENT No Information
--- OUTSIDE RECORDS SUMMARY | 2024-10-27 08:11 | XMS_ITS | Patient Health Record ---
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) Active confirmed [id number] Encounters Encounter Location Date Provider Diagnosis [facility] [address] [place] [address] 10/26/2024 Vivek Keller Jr PLAN OF TREATMENT Future Test Test Name Order Date COLONOSCOPY 09/04/2021 Insurance Providers Payer Name Payer Address Payer Phone Subscriber Number Group Number Insured Name Patient Relationship to Insured Coverage Start Date Coverage End Date [facility] [address] [place] [address] [id number] SANKET CROCKETT Self - patient is the insured MEDICAL (GENERAL) HISTORY Medical History History ICD Code Hypertension Hypothyroid Gout CANDY/CPAP Hypogonadism Nephrolithiasis Surgical History Surgery Date(Month/Year) Hospitalization History Reason Date(Month/Year) Passed a kidney stone 2020
== END 2024-10-11 10:10 | disposition home or self-care (01) | DRG 201 ==
LOC: HO.ED 14:05 → HO.SSS 14:06 → HO.IMC 10-11 09:27
PROVIDERS: Internal Medicine Cardiovascular Disease; Admitting Provider Internal Medicine; Emergency Provider Emergency Medicine; PCP Nurse Practitioner Family; Visit Provider Internal Medicine
PROC: 5A2204Z Restoration of Cardiac Rhythm, Single (ICD-10-PCS; CPT 93312; principal; 2024-10-10 14:40)
PROC: 5A2204Z Restoration of Cardiac Rhythm, Single (ICD-10-PCS; CPT 93306; 2024-10-10 14:40)
DX: I48.91 Unspecified atrial fibrillation (principal); I42.9 Cardiomyopathy, unspecified; E03.9 Hypothyroidism, unspecified; G47.33 Obstructive sleep apnea (adult) (pediatric); M10.9 Gout, unspecified; I10 Essential (primary) hypertension; E66.01 Morbid (severe) obesity due to excess calories; Z68.41 Body mass index [BMI] 40.0-44.9, adult; Z20.822 Contact with and (suspected) exposure to COVID-19; Z79.890 Hormone replacement therapy; Z79.899 Other long term (current) drug therapy; Z03.818 Encounter for observation for suspected exposure to other biological agents ruled out
CPT/HCPCS: 93306; 0241U; 36415; 71045; 80048; 80076; 80307; 83690; 83735; 83880; 84443; 84484; 85025; 85610; 92960; 93005; 99222; 99285; J2003; J2250; J2704; Q9957

== ENCOUNTER → 2024-10-10 10:33 | Outpatient (BNV) | payer BC, SELFPAY | PROVIDERS: Emergency Provider Emergency Medicine; PCP Nurse Practitioner Family; Visit Provider Internal Medicine Cardiovascular Disease | DX: I48.91 Unspecified atrial fibrillation (principal) | CPT/HCPCS: 92960; 93010; 93306; 93312; 99223 ==

== ENCOUNTER → 2024-10-10 14:05 | Outpatient (BNV) | payer BC, SELFPAY | PROVIDERS: Emergency Provider Emergency Medicine; PCP Nurse Practitioner Family; Visit Provider Internal Medicine | DX: I42.9 Cardiomyopathy, unspecified (principal); I48.91 Unspecified atrial fibrillation | CPT/HCPCS: 99239 ==

== ENCOUNTER 2024-10-21 10:23 | Emergency (ER) | payer BC, SELFPAY ==
--- NOTE | ~2024-10-21 | CT_ITS ---
EXAMINATION: CT ABDOMEN AND PELVIS WITHOUT CONTRAST CLINICAL INFORMATION: Abdominal pain and distention. COMPARISON: None available. TECHNIQUE: Multidetector volumetric imaging was performed from the superior aspect of the liver through the pubic symphysis. Sagittal and coronal reformatted images were obtained on the technologist's workstation. This CT examination was performed using dose optimization techniques as appropriate, variously including the following: *Automated exposure control *Adjustment of mA and/or kV according to patient size (this includes techniques or standardized protocols for targeted exams where dose is matched to indication/reason for exam; i.e. extremities or head) *Use of iterative reconstruction technique DLP 1108 mGy/cm. FINDINGS: LUNG BASES: The visualized lung bases are unremarkable. LIVER, GALLBLADDER, AND BILIARY TREE: The liver is normal in size, shape, and attenuation. No focal hepatic lesion or biliary ductal dilatation is present. There are multiple radiopaque gallstones in a contracted gallbladder. PANCREAS: Unremarkable. SPLEEN: Unremarkable. ADRENAL GLANDS: Unremarkable. KIDNEYS AND URETERS: The kidneys are normal in size, shape, and attenuation. No perinephric stranding. There is a 6.3 cm simple cyst lower pole right kidney. Nonobstructive 5 mm radiopaque calculi seen in the interpolar region of the right kidney. There is no hydronephrosis. No radiopaque calculi seen in the left kidney. There is a 1.2 cm exophytic low-density lesion mid pole left kidney. Mild bilateral perinephric stranding seen. BLADDER: Unremarkable. GASTROINTESTINAL TRACT: There is scattered stool and gas seen in colon without distention. The small bowel loops are normal caliber. Appendix is normal caliber. No free air or free fluid. ABDOMINAL WALL: No significant hernia is appreciated. LYMPH NODES: Normal. VASCULAR: Unremarkable. PELVIC VISCERA: Unremarkable. OSSEOUS STRUCTURES: Grade 1 anterolisthesis L4 over L5. No aggressive lytic or sclerotic process seen CT/CT abdomen pelvis wo IV con IMPRESSION: Cholelithiasis. Nonobstructive radiopaque calculi and moderate size cyst right kidney. Fleischner guidelines were followed. Electronically signed by: Antelmo Bennett MD 10/21/2024 02:11 PM [facility]
--- NOTE | ~2024-10-21 | US_ITS ---
EXAMINATION: US ABDOMEN LIMITED CLINICAL INFORMATION: Right upper quadrant pain. COMPARISON: None available. TECHNIQUE: Real-time imaging of the right upper quadrant abdominal viscera. FINDINGS: PANCREAS: Visualized portions are unremarkable. LIVER: The liver is normal in size. The liver contour is normal. Parenchymal echogenicity is increased. No focal hepatic lesion. There is no intrahepatic biliary duct dilatation seen. GALLBLADDER: The gallbladder is physiologically distended with multiple echogenic gallstones with acoustic shadowing. The gallstones appears impacted. No wall thickening seen. There is no tenderness in right upper quadrant. COMMON BILE DUCT: Normal in caliber measuring 0.3 cm in diameter. RIGHT KIDNEY: No hydronephrosis. There are echogenic stone midpole measuring 0.6 x 0.3 x 0.5 cm. There is anechoic cyst in the lower pole measuring 6.2 x 6.0 x 6.7 cm. The kidney measures 13.3 cm in maximum dimension. FREE FLUID: None. US/US abdomen limited IMPRESSION: Cholelithiasis with impacted stone but no wall thickening or tenderness in the right upper quadrant. Mild hepatic steatosis without focal lesion. Nonobstructive radiopaque calculi mid pole and moderate simple cyst right kidney. Electronically signed by: Antelmo Bennett MD 10/21/2024 02:33 PM EST
[2024-10-21 10:42] VITALS: BP 136/63; PULSE 46; RESP 20; TEMP 36.5; O2SAT 97; BMI 42.8
--- NOTE | 2024-10-21 10:43 | ED.GENADULT ---
HPI - General Adult General Chief complaint: Abdominal Pain Stated complaint: Abd pain Time Seen by Provider: 10/21/24 17:20 Source: patient Mode of arrival: ambulatory Limitations: no limitations History of Present Illness ED Provider: Dr. Mei Alicea HPI narrative: Patient comes to the emergency room complaining of 2-3 weeks of feeling bloated and having right upper quadrant pain. Patient states that he has normal bowel movements, no nausea vomiting or diarrhea, no fever chills, no respiratory problems or UTI symptoms. Related Data Home Medications ?Medication ?Instructions ?Recorded ?Confirmed levothyroxine 175 mcg tablet 175 mcg PO DAILY 06/14/21 10/10/24 testosterone 10 mg/0.5 20 mg topical DAILY 06/14/21 10/10/24 gram/actuation transdermal gel pump Previous Rx's ?Medication ?Instructions ?Recorded amiodarone 200 mg tablet 400 mg (2 x 200 mg) PO BID #118 10/11/24 tabs apixaban 5 mg tablet (Eliquis) 5 mg PO BID #180 tabs 10/11/24 losartan 50 mg tablet 50 mg PO DAILY #90 tabs 10/11/24 metoprolol succinate 25 mg 25 mg PO DAILY #90 tabs 10/11/24 tablet,extended release 24 hr (Toprol XL) hyoscyamine sulfate 0.125 mg and 1 tab PO Q8H PRN dyspepsia #14 tabs 10/21/24 0.25 mg (0.375 mg) tablet,extended release omeprazole 20 mg tablet,delayed 20 mg PO DAILY #90 tabs 10/21/24 release Allergies Allergy/AdvReac Type Severity Reaction Status Date / Time No Known Allergies Allergy Verified 10/21/24 10:47 Review of Systems Review of Systems: Constitutional : No Weight loss, No Fever, No Chills, No Night Sweats, No Fatigue, No Malaise ENT/Mouth : No Hearing loss, No Ear Pain, No Nasal Congestion, No Sinus Pain, No Hoarseness, No sore throat, No Rhinorrhea, No Swallowing Difficulty Eyes: No Eye Pain, No Swelling, No Redness, No Foreign Body, No Discharge, No Vision Changes Cardiovascular : No Chest Pain, No SOB, No Dyspnea on Exertion, No Orthopnea, No Edema, No Palpitations Respiratory : No Cough, No Sputum, No Wheezing, No Smoke Exposure, No Dyspnea Gastrointestinal : No Nausea, No Vomiting, No Diarrhea, No Constipation, complaining of 2-3 weeks of feeling bloated, gassy Genitourinary : No Dysuria, No Urinary Frequency, No Hematuria, No Urinary Incontinence, No Urgency, No Flank Pain, No Urinary Flow Changes, No Hesitancy Musculoskeletal : No joint pain, No Myalgias, No Joint Swelling Skin : No Skin Lesions, No rash Neuro : No Weakness, No Numbness, No Paresthesias, No Loss of Consciousness, No Dizziness, No Headache Psych : No Anxiety/Panic, No Depression, No SI/HI/AH/VH, No Social Issues, Heme/Lymph: No Bruising, No Bleeding,No Lymphadenopathy Endocrine : No Polyuria, No Polydipsia, No Temperature Intolerance [facility] Past Medical History Medical History COVID-19 vaccine series completed Renal calculi Gout Hypertension CANDY (obstructive sleep apnea) Hypothyroid Hypogonadism Surgical History Hx of colonoscopy Social History Social History Household Members: Family Housing: House Are you a primary critical care nurse to a significant other at home: No Do you presently have visiting nurse or other home services: No Alcohol intake: current Alcohol intake frequency: a few times a month Alcohol type: beer Patient Tobacco Use Status: Never used Tobacco Smoked in Last 30 Days: No e-Cigarette/Vaping Use: Never Used Second Hand Smoke Exposure: No Use of substances other than those prescribed or required for medical reasons: No Advance Directives: No Advance Directives Information Provided: No Do you have a plan to hurt others: No Plan service: No Current occupational status: employed 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 Current occupational exposures/hazards: No Cognitive needs: No Hearing needs: No Vision needs: No Physical Exam ED Vital Signs: Vital Signs - 24 hr 10/21/24 10:42 10/21/24 17:08 10/21/24 18:06 Temperature 97.7 F 97.2 F Pulse Rate 46 L 45 L 47 L Respiratory Rate 20 20 14 Blood Pressure 136/63 145/71 H 137/72 Pulse Oximetry 97 97 98 Oxygen Delivery Method Room Air Room Air Room Air 10/21/24 19:02 Temperature 98.0 F Pulse Rate 54 Respiratory Rate 14 Blood Pressure 137/72 Pulse Oximetry 98 Oxygen Delivery Method Room Air BMI result Body Mass Index 42.8 Const Other: Appearance: Alert. Oriented X3. No acute distress. Eyes: Pupils equal, round and reactive to light. ENT: Pharynx normal. Neck: Normal inspection. Neck supple. No lymph nodes noted. No crepitus CVS: Normal heart rate and rhythm. Pulses normal. Normal S1 and S2 Respiratory: No respiratory distress. Breath sounds normal. No Wheezing. No rales Abdomen: Soft and nontender. No rigidity. Mildly distention. No rebound or guarding. Skin: Skin warm and dry. Normal skin color. Normal skin turgor. Extremities: No lower extremity edema. No Lacerations. No Rash Neuro: Oriented X 3. No motor deficit. No sensory deficit. Moving all extremities. No slurred speech. CN 2 through 12 grossly intact Psych: calm, cooperative, normal affect Course Course Course Narrative: RME performed by Karime Nelson PA-C. Patient is a 59 year old assigned male at presenting to the emergency department with abdominal pain. Patient states that 10 days ago he had a cardioversion here at [facility]. Patient states that he has had increased abdominal pain and bloating that he is concerned about because he is also on new medications since the cardioversion. Detailed physical exam and review of systems are deferred to the garnisher. EKG, labs, and swabs ordered. Patient placed back in the waiting room pending room availability and results. Re-evaluated at 17:08 as patient still in WR. Patient states pain is 8/10. HR 44, BP stable. 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 Medications Administered Discontinued Medications Generic Name Dose Route Start Last Admin Trade Name Freq PRN Reason Stop Dose Admin Simethicone 160 mg 10/21/24 17:44 10/21/24 18:02 Simethicone 80 Mg Tab.Chew PO 10/21/24 17:45 160 mg ONCE ONE Administration Medical Decision Making Medical Decision Making [facility] Narrative: My interpretation of EKG: Sinus bradycardia, heart rate 47, no ST segment depression or elevation, no T-wave inversion, QTC 401 My interpretation of labs: No significant abnormality in patient's hematology and chemistry, normal LFTs, normal lipase, normal troponin CT scan of abdomen showed cholelithiasis, same the ultrasound., negative Sun's sign on physical exam. Patient was given simethicone, patient states that his abdomen is starting to feel much better and less distended. Patient's heart rate noted to be in the high 40s low 50s. Patient was ambulated around the emergency room, patient's heart rate increased appropriately to the 60s., blood pressure 137/72. Patient asymptomatic Differential Diagnosis Differential Diagnoses: The differential diagnosis associated with the presentation includes (Dyspepsia, SBO, choledocholithiasis, cholecystitis) Admission/Observation Consideration of admission/observation: Escalation of care including admission/observation considered (Given patient's length of symptoms, observation was considered) Lab Data MDM Lab Attestation statement: I reviewed the patient's lab results. 10/21/24 11:02 10/21/24 11:02 Labs: Lab Results 10/21/24 10/21/24 Range/Units 11:01 11:02 WBC 5.9 (4.8-10.8) X10*3/uL RBC 4.68 (4.60-5.80) X10*6/uL Hgb 15.7 (14.0-18.0) g/dl Hct 45.6 (42.0-52.0) % MCV 97.4 (80.0-98.0) fL MCH 33.5 H (27.0-33.0) pg MCHC 34.4 (31.0-36.0) g/dl RDW 13.4 (11.0-16.0) % Plt Count 180 (160-400) X10*3/uL MPV 9.6 (9.4-12.4) fL Immature Gran % (Auto) 0.3 (0.0-0.4) % Neut % (Auto) 73.8 H (45-73) % Lymph % (Auto) 13.2 L (20-40) % J[place] % (Auto) 10.0 (2-11) % Eos % (Auto) 2.2 (0-4) % Baso % (Auto) 0.5 (0-2) % Lymph # (Auto) 0.8 L (1.2-4.9) X10*3/uL J[place]uld # (Auto) 0.6 (0.1-1.2) X10*3/uL Eos # (Auto) 0.1 (0.0-0.4) X10*3/uL Baso # (Auto) 0.0 (0.0-0.2) X10*3/uL Abs Immat Gran (auto) 0.02 (0.00-0.03) X10*3/uL Absolute Neuts (auto) 4.4 (2.0-8.3) x10*3/uL Absolute Nucleated RBC 0.000 (0.0-0.012) X10*3/uL Nucleated RBC % (auto) 0.0 (0.0-0.2) /100WBC Sodium 137 (135-145) mmol/L Potassium 4.4 (3.3-5.1) mmol/L Chloride 105 (96-108) mmol/L Carbon Dioxide 27 (22-29) mmol/L Anion Gap 9 L (12-20) BUN 13 (9-16) mg/dL Creatinine 1.02 (0.5-1.4) mg/dL Estim Creat Clear Calc 109.8 Estimated GFR > 60 Random Glucose 99 (60-115) mg/dL Calcium 8.6 (8.4-10.2) mg/dL Magnesium 2.1 (1.6-2.6) mg/dL Total Bilirubin 0.9 (0.0-1.0) mg/dL AST 35 (5-37) U/L ALT 37 (0-40) U/L Alkaline Phosphatase 63 (39-117) U/L Troponin I High Sens < 2.7 (<3.5-35.0) ng/L B-Natriuretic Peptide 54 (<100) pg/mL Total Protein 7.5 (6.5-8.0) g/dL Albumin 4.4 (3.5-5.0) g/dL Lipase 24 (8-78) U/L Influenza Type A (PCR) NEGATIVE (Negative) Influenza Type B (PCR) NEGATIVE (Negative) RSV RNA Qual (PCR) NEGATIVE (Negative) SARS-CoV-2 RNA (RT-PCR) NEGATIVE (Negative) Independent Interpretation I performed an independent interpretation of an: EKG, Ultrasound and CT Scan Radiology Impression Discussion of test interpretation with radiology: I have reviewed the radiologist's reading. Radiologist Impression: FINDINGS: LUNG BASES: The visualized lung bases are unremarkable. LIVER, GALLBLADDER, AND BILIARY TREE: The liver is normal in size, shape, and attenuation. No focal hepatic lesion or biliary ductal dilatation is present. There are multiple radiopaque gallstones in a contracted gallbladder. PANCREAS: Unremarkable. SPLEEN: Unremarkable. ADRENAL GLANDS: Unremarkable. KIDNEYS AND URETERS: The kidneys are normal in size, shape, and attenuation. No perinephric stranding. There is a 6.3 cm simple cyst lower pole right kidney. Nonobstructive 5 mm radiopaque calculi seen in the interpolar region of the right kidney. There is no hydronephrosis. No radiopaque calculi seen in the left kidney. There is a 1.2 cm exophytic low-density lesion mid pole left kidney. Mild bilateral perinephric stranding seen. BLADDER: Unremarkable. GASTROINTESTINAL TRACT: There is scattered stool and gas seen in colon without distention. The small bowel loops are normal caliber. Appendix is normal caliber. No free air or free fluid. ABDOMINAL WALL: No significant hernia is appreciated. LYMPH NODES: Normal. VASCULAR: Unremarkable. PELVIC VISCERA: Unremarkable. OSSEOUS STRUCTURES: Grade 1 anterolisthesis L4 over L5. No aggressive lytic or sclerotic process seen CT/CT abdomen pelvis wo IV con IMPRESSION: Cholelithiasis. Nonobstructive radiopaque calculi and moderate size cyst right kidney. Fleischner guidelines were followed. FINDINGS: PANCREAS: Visualized portions are unremarkable. LIVER: The liver is normal in size. The liver contour is normal. Parenchymal echogenicity is increased. No focal hepatic lesion. There is no intrahepatic biliary duct dilatation seen. GALLBLADDER: The gallbladder is physiologically distended with multiple echogenic gallstones with acoustic shadowing. The gallstones appears impacted. No wall thickening seen. There is no tenderness in right upper quadrant. COMMON BILE DUCT: Normal in caliber measuring 0.3 cm in diameter. RIGHT KIDNEY: No hydronephrosis. There are echogenic stone midpole measuring 0.6 x 0.3 x 0.5 cm. There is anechoic cyst in the lower pole measuring 6.2 x 6.0 x 6.7 cm. The kidney measures 13.3 cm in maximum dimension. Critical Care Time Critical Care Time Critical Care Time: Yes Total Critical Care Time: 35 Attestation: I have personally provided critical care time. Time includes review of lab data, radiology results, discussion with consultants, and monitoring for potential decompensation. Intervention performed as documented. Discharge Plan Discharge Clinical Impression: Dyspepsia, Asymptomatic bradycardia, Cholelithiasis Patient Disposition: Home, Self-Care Instructions: Gas and Bloating (ED), Bradycardia (ED), Abdominal Pain (ED) Additional Instructions: Please follow-up with your primary care physician tomorrow. If you have any worsening or new symptoms, please return to the emergency room or call 911 Prescriptions: New hyoscyamine sulfate 0.125 mg-0.25 mg (0.375 mg) tablet,ext release multiphase 1 tab PO Q8H PRN (Reason: dyspepsia) Qty: 14 0RF No Action omeprazole 20 mg tablet,delayed release (DR/EC) 20 mg PO DAILY Qty: 90 0RF levothyroxine 175 mcg tablet 175 mcg PO DAILY testosterone 10 mg/0.5 gram /actuation gel in metered-dose pump 20 mg topical DAILY Eliquis 5 mg Tablet 5 mg PO BID Qty: 180 0RF amiodarone 200 mg Tablet 400 mg PO BID Qty: 118 0RF Rx Instructions: 400mg bid for 14 days total, then decrease to 200mg daily losartan 50 mg Tablet 50 mg PO DAILY Qty: 90 0RF Protocol: Hold for SBP< HOLD for SBP < : 90 metoprolol succinate [Toprol XL] 25 mg tablet extended release 24 hr 25 mg PO DAILY Qty: 90 0RF Referrals: Mariusz Robertson MD [Physician] - 10/24/24 Interventions: ED Discharge Assessment Last Done: 10/21/24 19:02 Discharge Date/Time: 10/21/24 19:03 Print Language: [place]
--- NOTE | 2024-10-21 10:45 | ECG_ITS ---
Test Reason : chest pain Blood Pressure : / mmHG Vent. Rate : 047 BPM Atrial Rate : 047 BPM P-R Int : 216 ms QRS Dur : 092 ms QT Int : 454 ms P-R-T Axes : 040 -34 051 degrees QTc Int : 401 ms Sinus bradycardia with 1st degree A-V block Left axis deviation Low voltage QRS Inferior infarct (cited on or before 10-OCT-2024) Cannot rule out Anterior infarct , age undetermined Abnormal ECG When compared with ECG of 10-OCT-2024 16:25, Premature ventricular complexes are no longer Present Referred By: Karime Nelson Electronically Signed By:CHARISMA MUKHERJEE MD
[2024-10-21 11:05] LABS: MANUAL DIFF FLAG NO
[2024-10-21 11:09] LABS: Basophils Percent Auto 0.5 % (0-2); Eosinophils Absolute Auto 0.1 X10*3/uL (0.0-0.4); Eosinophils Percent Auto 2.2 % (0-4); Hematocrit 45.6 % (42.0-52.0); Hemoglobin 15.7 g/dl (14.0-18.0); Imm Gran Abs Auto 0.02 X10*3/uL (0.00-0.03); Imm Gran Pct Auto 0.3 % (0.0-0.4); Lymphocytes Absolute Auto 0.8 X10*3/uL (1.2-4.9); Lymphocytes Percent Auto 13.2 % (20-40); Mean Corpuscular HGB Conc 34.4 g/dl (31.0-36.0); Mean Corpuscular Hemoglobin 33.5 pg (27.0-33.0); Mean Corpuscular Volume 97.4 fL (80.0-98.0); Mean Platelet Volume 9.6 fL (9.4-12.4); Monocytes Absolute Auto 0.6 X10*3/uL (0.1-1.2); Neutrophils Absolute Auto 4.4 x10*3/uL (2.0-8.3); Neutrophils Percent Auto 73.8 % (45-73); Platelet Count 180 X10*3/uL (160-400); Red Blood Count 4.68 X10*6/uL (4.60-5.80); Red Cell Distribution Width 13.4 % (11.0-16.0); White Blood Count 5.9 X10*3/uL (4.8-10.8)
[2024-10-21 11:26] LABS: Alanine Aminotransferase 37 U/L (0-40); Albumin Level 4.4 g/dL (3.5-5.0); Alkaline Phosphatase 63 U/L (39-117); Anion Gap 9 (12-20); Aspartate Amino Transferase 35 U/L (5-37); Bilirubin Total 0.9 mg/dL (0.0-1.0); Blood Urea Nitrogen 13 mg/dL (9-16); Calcium 8.6 mg/dL (8.4-10.2); Carbon Dioxide 27 mmol/L (22-29); Chloride 105 mmol/L (96-108); Creatinine Clr Calc Pharmacy 109.8; Estimated Glomerular Filt Rate > 60; Glucose Random 99 mg/dL (60-115); Magnesium 2.1 mg/dL (1.6-2.6); Potassium 4.4 mmol/L (3.3-5.1); Sodium 137 mmol/L (135-145); Total Protein 7.5 g/dL (6.5-8.0)
[2024-10-21 11:40] LABS: Troponin-I High Sensitivity < 2.7 ng/L (<3.5-35.0)
[2024-10-21 11:48] LABS: Influenza A PCR NEGATIVE (Negative); Influenza B PCR NEGATIVE (Negative); Resp Syncy Virus RNA Qual PCR NEGATIVE (Negative); SARS COV2 PCR INHOUSE NEGATIVE (Negative)
--- OUTSIDE RECORDS SUMMARY | 2024-10-21 11:48 | XMS_ITS | Patient Health Record ---
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) Active confirmed [id number] PLAN OF TREATMENT Future Test Test Name Order Date COLONOSCOPY 09/04/2021 Insurance Providers Payer Name Payer Address Payer Phone Subscriber Number Group Number Insured Name Patient Relationship to Insured Coverage Start Date Coverage End Date [facility] [address] [place] [address] [id number] SANKET CROCKETT Self - patient is the insured MEDICAL (GENERAL) HISTORY Medical History History ICD Code Hypertension Hypothyroid Gout CANDY/CPAP Hypogonadism Nephrolithiasis Surgical History Surgery Date(Month/Year) Hospitalization History Reason Date(Month/Year) Passed a kidney stone 2020
[2024-10-21 11:54] LABS: Lipase 24 U/L (8-78)
[2024-10-21 11:59] LABS: B Type Natriuretic Peptide 54 pg/mL (<100)
[2024-10-21 17:08] VITALS: BP 145/71; PULSE 45; RESP 20; TEMP 36.2; O2SAT 97
[2024-10-21] MEDS: Simethicone 80 MG TAB.CHEW 160 MG PO (18:02)
[2024-10-21 18:06] VITALS: BP 137/72; PULSE 47; RESP 14; O2SAT 98
[2024-10-21 19:02] VITALS: BP 137/72; PULSE 54; RESP 14; TEMP 36.7; O2SAT 98
== END 2024-10-21 19:03 | disposition home or self-care (01) ==
PROVIDERS: Emergency Medicine; Physician Assistant Medical; Emergency Provider Emergency Medicine; PCP Nurse Practitioner Family
DX: K80.20 Calculus of gallbladder without cholecystitis without obstruction (principal); R10.13 Epigastric pain; R00.1 Bradycardia, unspecified; R10.11 Right upper quadrant pain; I10 Essential (primary) hypertension; I48.0 Paroxysmal atrial fibrillation; R06.02 Shortness of breath; E03.9 Hypothyroidism, unspecified; Z79.01 Long term (current) use of anticoagulants; Z79.899 Other long term (current) drug therapy; Z03.818 Encounter for observation for suspected exposure to other biological agents ruled out
CPT/HCPCS: 0241U; 74176; 76705; 80053; 83690; 83735; 83880; 84484; 85025; 93005; 99284

== ENCOUNTER → 2024-10-21 10:45 | Outpatient (BNV) | payer BC, SELFPAY | PROVIDERS: PCP Nurse Practitioner Family; Visit Provider Internal Medicine Cardiovascular Disease | DX: R94.31 Abnormal electrocardiogram [ECG] [EKG] (principal) | CPT/HCPCS: 93010 ==

== ENCOUNTER → 2024-10-21 11:17 | Outpatient (BNV) | payer BC, SELFPAY | PROVIDERS: PCP Nurse Practitioner Family; Visit Provider Radiology Diagnostic Radiology | DX: R14.0 Abdominal distension (gaseous) (principal); R10.9 Unspecified abdominal pain; R10.11 Right upper quadrant pain | CPT/HCPCS: 74176; 76705 ==

== ENCOUNTER 2024-11-02 09:02 | Outpatient (AMB) | payer BC, SELFPAY ==
[2024-11-02 09:08] VITALS: BP 127/61; PULSE 51; BMI 41.3
--- NOTE | 2024-11-02 09:08 | A.OFFVIS_ITS ---
Vital Signs 11/02/24 09:08 Height 5 ft 11 in Weight 296 lb 8 oz BMI 41.3 BP 127/61 Blood Pressure Location Rt brachial Position Sitting Pulse 51 Intake Visit Reasons: Abdominal pain, gallstones Intake Note: This patient presents for abdominal pain, gallstones. Pt c/o; reports no recent gallbladder attack, reports no nausea or vomiting, reports he notices certain fruits can cause bloating and abdominal discomfort, reports he had ate a pear last week at around 7pm and he felt bloated to the point where he felt his abdomen was expanding. Director Clinical Applications Required: No Accompanied by: Spouse Allergies No Known Allergies Allergy (Verified 11/02/24 09:21) Medication List - Last Reconciled 11/02/24 by Dennis Melton MD amiodarone 400 mg (2 x 200 mg) PO BID apixaban (Eliquis) 5 mg PO BID hyoscyamine sulfate ER 1 tab PO Q8H PRN levothyroxine 175 mcg PO DAILY losartan 50 mg See Protocol PO DAILY metoprolol succinate ER (Toprol XL) 25 mg PO DAILY omeprazole 20 mg PO DAILY testosterone 10 mg/0.5 gram /actuation 20 mg topical DAILY HPI HPI Abdominal pain, gallstones: Details: 59-year-old male referred for gallstones. He went to the ER last October he went to the ER last 10/21/2023 because of a 2 week history of abdominal bloating and periodic right upper quadrant pain. He does state that he seems to have had some bloating and swelling of his entire body? since last year. He says he has known he has gallstones for many years He was supposed to undergo stress testing last October 10, 2024 but at that time, he was also diagnosed to have atrial fibrillation. He underwent cardioversion. He was started on Eliquis. He says he does have some periodic right-sided abdominal pain [facility] Medical History Gallstones COVID-19 vaccine series completed Renal calculi Gout Hypertension CANDY (obstructive sleep apnea) Hypothyroid Hypogonadism Surgical History Hx of colonoscopy Social History Household Members: Family Housing: House Are you a primary post acute care registered nurse to a significant other at home: No Do you presently have visiting nurse or other home services: No Alcohol intake: current Alcohol intake frequency: a few times a month Alcohol type: beer Patient Tobacco Use Status: Never used Tobacco e-Cigarette/Vaping Use: Never Used Second Hand Smoke Exposure: No service: No Current occupational status: employed 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 [employer] Current occupational exposures/hazards: No Cognitive needs: No Hearing needs: No Vision needs: No Review of Systems Const Denies chills and Denies fever(s) Card Denies chest pain, Denies dyspnea and Denies dyspnea on exertion Resp Denies cough, Denies dyspnea and Denies dyspnea on exertion GI Denies hematochezia and Denies change in bowel habits Denies hematuria and Denies difficulty urinating Musc Denies back pain and Denies limited range of motion Neuro Denies focal weakness and Denies convulsions Psych Denies depression and Denies mood swings Physical Exam Vital Signs: Last Vital Signs Pulse 51 11/02/24 09:08 BP 127/61 11/02/24 09:08 BMI result Body Mass Index 41.3 Const General: comfortable and no acute distress Orientation/consciousness: patient oriented x3 Neck Neck: Yes no lymphadenopathy Resp Auscultation: clear to auscultation bilaterally Cardio Rhythm: regular rhythm GI Palpation (GI): Soft to palpation, nontender and no guarding Neuro General: patient oriented x3 Assessment & Plan Assessment & Plan (1) Gallstones: Code(s): K80.20 - Calculus of gallbladder without cholecystitis without obstruction Category: Medical Plan: He has gallstones on imaging studies. He describes periodic right upper quadrant pain and bloating. These seemed to suggest symptoms secondary to his gallstones. I therefore offered him the option of proceeding cholecystectomy. I explained the technique of laparoscopic cholecystectomy and possible open cholecystectomy. I reviewed the risks including but not limited to bleeding, infections, injury to other organs including bowel, liver, the bile ducts, pneumonia, [place], strokes, blood clots, as well as the benefits and alternatives. I reviewed with him what to expect postoperatively. He has to stop his Eliquis for 2 days prior to the procedure. He is to be seen by the anesthesia assistant next week. He has a newly diagnosed atrial fibrillation and had cardioversion last October 10. Coding Level of Care Code Est Pt Level 2 (98617) Diagnoses Gallstones K80.20
== END 2024-11-02 09:41 | disposition home or self-care (01) ==
PROVIDERS: PCP Nurse Practitioner Family; Visit Provider Surgery
DX: K80.20 Calculus of gallbladder without cholecystitis without obstruction (principal)
CPT/HCPCS: 99212

== ENCOUNTER → 2024-11-02 09:02 | Outpatient (BNVA) | payer BC, SELFPAY | PROVIDERS: PCP Nurse Practitioner Family; Visit Provider Surgery ==

== ENCOUNTER 2024-11-07 09:22 | Outpatient (AMB) | payer BC, SELFPAY ==
[2024-11-07 09:24] VITALS: BP 110/70; PULSE 47; BMI 40.5
--- NOTE | 2024-11-07 09:24 | A.OFFVIS_ITS ---
Vital Signs 11/07/24 09:24 Height 5 ft 11 in Weight 290 lb 9.108 oz BMI 40.5 BP 110/70 Blood Pressure Location Lt brachial Position Sitting Pulse 47 L Pulse Source Monitor Intake Visit Reasons: f/up-atrial fibrillation. Cable Systems Installer Required: No Accompanied by: Spouse Allergies No Known Allergies Allergy (Verified 11/02/24 09:21) Medication List - Last Reconciled 11/07/24 by Madhav Cm MD amiodarone 200 mg PO DAILY apixaban (Eliquis) 5 mg PO BID furosemide (Lasix) 20 mg PO DAILY hyoscyamine sulfate ER 1 tab PO Q8H PRN levothyroxine 175 mcg PO DAILY losartan 50 mg See Protocol PO DAILY metoprolol succinate ER (Toprol XL) 25 mg PO DAILY omeprazole 20 mg PO DAILY testosterone 10 mg/0.5 gram /actuation 20 mg topical DAILY HPI Comments Details: [age] year gentleman who is here for follow-up. He was seen in the hospital in September when he presented for outpatient procedure and was noticed to be in AFib with RVR. He was admitted and rate controlled initially but echocardiography showed EF of 30 35%. After discussion he underwent BRICE cardioversion. He was loaded with amiodarone and was sent home with amiodarone which he is taking 200 mg daily at this point along with Toprol-XL. He has noticed his heart rate to be slow at times in 40s to 50s. Since discharge he has done significantly well and has made significant lifestyle changes including diet and exercise. He has stopped drinking alcohol and caffeine. He is swimming 45 minutes every day. No exertional symptoms. He has gallstones and has been experiencing some abdominal pains and occasionally while getting abdominal pain he gets some chest pains. These symptoms are clearly linked with abdominal pain and during exercise like swimming he does not get any chest discomfort. He is here to discuss further management of atrial fibrillation as well as whether he can get surgery for gallstones. [facility] Medical History Gallstones COVID-19 vaccine series completed Renal calculi Gout Hypertension CANDY (obstructive sleep apnea) Hypothyroid Hypogonadism Surgical History Hx of colonoscopy Social History Household Members: Family Housing: House Are you a primary healthcare consultant to a significant other at home: No Do you presently have visiting nurse or other home services: No Alcohol intake: current Alcohol intake frequency: a few times a month Alcohol type: beer Patient Tobacco Use Status: Never used Tobacco e-Cigarette/Vaping Use: Never Used Second Hand Smoke Exposure: No service: No Current occupational status: employed 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 Current occupational exposures/hazards: No Cognitive needs: No Hearing needs: No Vision needs: No Review of Systems Const Denies chills, Denies fatigue, Denies fever(s), Denies frequent falls, Denies weakness, Denies weight gain and Denies weight loss ENT Denies dizziness Card Denies chest pain, Denies leg edema, Denies lightheadedness, Denies palpitations, Denies dyspnea and Denies dyspnea on exertion Resp Denies cough, Denies dyspnea and Denies dyspnea on exertion GI Denies hematochezia Musc Denies abnormal gait, Denies muscle weakness, Denies numbness, Denies radiating pain into limb and Denies tingling Neuro Denies abnormal gait, Denies dizziness, Denies frequent falls, Denies numbness, Denies tingling and Denies weakness Endo Denies fatigue and Denies palpitations Physical Exam Vital Signs: Last Vital Signs Pulse 47 L 11/07/24 09:24 BP 110/70 11/07/24 09:24 BMI result Body Mass Index 40.5 GENERAL APPEARANCE: in no acute distress, pleasant. NECK: no carotid bruit, no jugular venous distention. SKIN: no suspicious lesions, warm and dry. HEART: no murmurs, regular rate and rhythm. LUNGS: clear to auscultation bilaterally. ABDOMEN: soft, nontender. EXTREMITIES: no edema. PERIPHERAL PULSES: equal. NEUROLOGIC: No gross deficits, AAO X 3 Office Procedures EKG Details: Sinus bradycardia 47 beats per minute, normal axis, inferior Q-waves, QTC 405 milliseconds [id number], Complete Assessment & Plan Assessment & Plan (1) Cardiomyopathy: Code(s): I42.9 - Cardiomyopathy, unspecified Category: Medical Qualifiers: Cardiomyopathy type: unspecified Qualified Code(s): I42.9 - Cardiomyopathy, unspecified (2) PAF (paroxysmal atrial fibrillation): Code(s): I48.0 - Paroxysmal atrial fibrillation Category: Medical (3) Bradycardia: Code(s): R00.1 - Bradycardia, unspecified Category: Medical Plan Pleasant 59 year gentleman who is here for follow-up. He has cardiomyopathy in the setting of atrial fibrillation and alcohol use. He has stopped drinking and has been in sinus rhythm since cardioversion. On amiodarone for rhythm control strategy. Heart rates are slow but he has no symptoms currently no indication to change any medications. We discussed about ablation and I am referring him to [facility] electrophysiology for ablation. Post ablation we will get him off the amiodarone. We will repeat echocardiography in 3 months and see him after that for follow- up. In the meantime she will continue same medications. In terms of gallstones, he will need laparoscopic cholecystectomy. He is intermediate risk for perioperative complications and can proceed. I would recommend doing it end of November or early December so he has at least 6 weeks of anticoagulation after cardioversion. Post cardioversion the risk of stroke is higher if the medications are interrupted within the 1st month. Enlarged pulmonary artery on echocardiography. We will arrange CT to appropriately size this. Overall clinically stable and doing well. He will see us back in 3-4 months. Thank you for allowing me to participate in the care of your patient. Please feel free to contact me if you have any questions. Orders: Orders CA echo transthorac w con 3 Months Madhav Cm MD I42.9 - Cardiomyopathy, unspecified Referrals Cardiac Electrophysiology Referral Madhav Cm MD I42.9 - Cardiomyopathy, unspecified Medications: Changed From amiodarone 400mg bid for 14 days total, then decrease to 200mg daily 400 mg (2 x 200 mg) PO BID 118 tabs 0RF To amiodarone 200 mg PO DAILY Randall Mane MD Coding Level of Care Code Est Pt Level 5 (36031) Diagnoses Cardiomyopathy I42.9 Cardiomyopathy type: unspecified PAF (paroxysmal atrial fibrillation) I48.0 Bradycardia R00.1 CPT Codes EKG - CPT: 11532-[id number], Complete ([id number])
== END 2024-11-07 10:00 | disposition home or self-care (01) ==
PROVIDERS: PCP Nurse Practitioner Family; Visit Provider Internal Medicine Cardiovascular Disease
DX: I42.9 Cardiomyopathy, unspecified (principal); I48.0 Paroxysmal atrial fibrillation; R00.1 Bradycardia, unspecified
CPT/HCPCS: 93010; 99214

== ENCOUNTER → 2024-11-07 09:22 | Outpatient (BNVA) | payer BC, SELFPAY | PROVIDERS: PCP Nurse Practitioner Family; Visit Provider Internal Medicine Cardiovascular Disease | DX: I48.0 Paroxysmal atrial fibrillation (principal); I42.9 Cardiomyopathy, unspecified; R00.1 Bradycardia, unspecified; Z79.899 Other long term (current) drug therapy | CPT/HCPCS: 93005 ==

== ENCOUNTER 2024-11-14 15:17 | Outpatient (AMB) | payer BC, SELFPAY ==
[2024-11-14 15:26] VITALS: BP 102/66; PULSE 54; O2SAT 96; BMI 40.9
--- NOTE | 2024-11-14 15:26 | A.OFFPC_ITS ---
Vital Signs 11/14/24 15:26 Height 5 ft 11 in Weight 293 lb 6 oz BMI 40.9 BP 102/66 Blood Pressure Location Lt brachial Position Sitting Pulse 54 Pulse Source Pulse Oximeter Pulse Oximetry (%) 96 Oxygen Delivery Method Room Air Intake Visit Reasons: PE Intake Note: Pt is here today for his annual pe Allergies No Known Allergies Allergy (Verified 11/14/24 15:45) Medication List - Last Reconciled 11/14/24 by Mariusz Fish [facility] amiodarone 200 mg PO DAILY apixaban (Eliquis) 5 mg PO BID furosemide (Lasix) 20 mg PO DAILY hyoscyamine sulfate ER 1 tab PO Q8H PRN levothyroxine 175 mcg PO DAILY losartan 50 mg See Protocol PO DAILY metoprolol succinate ER (Toprol XL) 25 mg PO DAILY omeprazole 20 mg PO DAILY testosterone 10 mg/0.5 gram /actuation 20 mg topical DAILY Tobacco use date assessed: 11/14/24 Dental Screening Dental Screen Date: 11/14/24 Did you have a dental problem in the last 6 months where you did not have access to dental care?: No HPI PE HPI Details History of Present Illness The patient is a 59-year-old male presenting for an annual physical examination and management of his previously diagnosed atrial fibrillation. On October 11, he underwent an cardioversion procedure due to recurrent atrial fibrillation. Following this, on October 21, he experienced abdominal discomfort and went to the Emergency Room. The evaluation there included an EKG which showed sinus bradycardia, consistent with his baseline rhythm and without acute changes. Laboratory evaluation and a CT scan of the abdomen revealed cholelithiasis, for which he might undergo a cholecystectomy pending a consultation with general surgery. Additionally, the CT incidentally found a moderate-sized cyst in the right kidney, prompting a referral to urology for further evaluation. He reports feeling improved overall, crediting lifestyle changes such as discontinuing soda consumption. 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 This issue emerged fairly recently and affects his routine confidence while driving. Currently, he denies any chest pain, dyspnea, nausea, vomiting, or abdominal pain. pt follows up with dermatology, endocrinology, and cardiology Health Maintenance - Regular exercise maintained through [facility]. - Elimination of soda consumption for we ight management and overall health improvement. - Continues follow-ups with cardiology f or atrial fibrillation management. - Anxiety management discussed with init iation of low-dose buspirone. - Referral to urology for evaluation of the renal cyst. -colon screen up to date -refused LILY today, PSA ordered, denies any urinary symptoms -refused vaccinations today Social History - Engages in swimming regularly as part of his exercise routine. - Ceased soda consumption for weight man agement and health promotion. 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 Review of Systems - Cardiovascular: Denies chest pain, mark rtness of breath. - Gastrointestinal: Denies current abdom inal pain, blood in stool, constipation, diarrhea. - Neurological: Denies numbness, tinglin g. - Psychiatric: Reports anxiety, especial ly with driving. Physical Exam General: Cooperative, healthy appearing, comfortable, no acute distress and well developed, obese Orientation: Patient oriented x3 Limitations: No limitations Head: Normal to inspection Ears: Hearing grossly normal bilaterally Nose: Normal external nose present Face and sinus: Normal facial exam Eyes: Appearance normal, both eyes and all related structures Neck: Normal visual inspection and Yes full ROM Respiratory: Normal respiratory effort and able to speak in complete sentences. Clear to auscultation bilaterally Cardiovascular: Arnoldo, s1 s2 GI: Normal to inspection. Soft to palpation and nontender Skin: No rashes or lesions noted Neuro: Patient oriented x3 Extremities: Normal to inspection Results - Tests and Diagnostics: - CT of the abd omen showed cholelithiasis and a right moderate-sized renal cyst. - EKG showed sinus bradycardia, consiste nt with his typical rhythm. Plan - Continue regular follow-up with the nv rdiology team for monitoring and management of atrial fibrillation. - Consult with a general surgeon purvi oneal potential cholecystectomy for cholelithiasis. - Initiate low-dose buspirone for anxiet y management, with a plan to monitor progress. - Refer to urology for further evaluatio n of the incidental moderate-sized renal cyst. - Recommend ongoing lifestyle modificati ons including exercise through swimming and maintaining a healthy diet. Patient was informed and verbally consented to the use of an ambient scribe for clinic note documentation during this visit. Discussion Notes During this visit, we reviewed the patient's cardiac history, including the recent cardioversion for atrial fibrillation and post-procedural abdominal discomfort. ablation for afib in the near future also scheduled. The possible need for cholecystectomy was discussed after his diagnosis of cholelithiasis, emphasizing the importance of follow-up with a general surgeon. We addressed his recent increase in anxiety, particularly related to driving, and discussed initiating treatment with low-dose buspirone, with plans to assess effectiveness through patient feedback via the patient portal. I emphasized continuing engagement in physical activities such as swimming and encouraged the maintenance of a healthy, modified diet. Follow-up with urology for the renal cyst was planned, with forthcoming results to guide any necessary interventions. Patient Instructions - Follow-up with cardiology as scheduled for atrial fibrillation management. - Schedule a consultation with a general surgeon for cholecystectomy evaluation. - Begin taking buspirone as prescribed a nd report any changes in anxiety symp toms. - Continue swimming and maintain a healt hy diet. - Contact urology for follow-up regardin g the renal cyst assessment. - Monitor and report any new or worsenin g symptoms, particularly related to cardiac or abdominal issues. -contact me via the portal on how the dionne [facility]ish[facility] is working [facility] Medical History Gallstones COVID-19 vaccine series completed Renal calculi Gout Hypertension CANDY (obstructive sleep apnea) Hypothyroid Hypogonadism Surgical History Hx of colonoscopy Social History Household Members: Family Housing: House Are you a primary care team coordinator scheduler to a significant other at home: No Do you presently have visiting nurse or other home services: No Alcohol intake: current Alcohol intake frequency: a few times a month Alcohol type: beer Patient Tobacco Use Status: Never used Tobacco e-Cigarette/Vaping Use: Never Used Second Hand Smoke Exposure: No service: No Current occupational status: employed Current occupation: [employer] Current occupational exposures/hazards: No Cognitive needs: No Hearing needs: No Vision needs: No Questionnaire PHQ-9 Over the last 2 weeks, how often have you been bothered by any of the following problems? 1. Little interest or pleasure in doing things: not at all 2. Feeling down, depressed, or hopeless: not at all 3. Trouble falling or staying asleep, or sleeping too much: not at all 4. Feeling tired or having little energy: not at all 5. Poor appetite or overeating: not at all 6. Feeling bad about yourself - or that you are a failure or have let yourself or your family down: not at all 7. Trouble concentrating on things, such as reading the newspaper or watching television: not at all 8. Moving or speaking so slowly that other people could have noticed. Or the opposite - being so fidgety or restless that you have been moving around a lot more than usual: not at all 9. Thoughts that you would be better off or of hurting yourself in some way: not at all Total score: 0 Depression Screening Interpretation: Negative Depression Screening Done: Yes 73208 - PHQ-9 Billing: Yes Source: Developed by Drs. Grayson Brooks, Yesenia Fournier, Adin Seaman and colleagues, with an educational carey from [employer]. Thrive Questionnaire Date Thrive assessed: 11/14/24 I am a: Patient What is your living situation today?: I have a steady place to live Within the past 12 months, did the food you bought not last and you didn't have the money to get more?: Never true Within the past 12 months, did you worry whether your food would run out before you got money to buy more?: Never true Do you have trouble paying for medicines?: No Do you have trouble getting transportation to medical appointments?: No Do you have trouble paying your heating and electricity bill?: No Do you have trouble taking care of your child, family member or friend?: No Do you have trouble with day-to-day activities such as bathing, preparing meals, shopping, managing finances, etc.?: No Are you currently unemployed and looking for a job?: No Are you interested in more education?: No Please select the resources that you would like help with: None Currently or been in a relationship where the following occur: No concerns reported THRIVE Score: 0 AUDIT C Alcohol Use Questionnaire (AUDIT-C) 1. How often do you have a drink containing alcohol?: 2-4 times a month 2. How many drinks containing alcohol do you have on a typical day when you are drinking?: 1 or 2 3. How often do you have six or more drinks on one occasion?: Less than monthly Total Score: 3 Score Reviewed/Action Taken: Yes SHASHANK-7 AMB Questionnaire SHASHANK-7 Date SHASHANK - 7 assessed: 11/14/24 Feeling nervous, anxious, or on edge: 0 = Not at all Not being able to stop or control worryin = Not at all Worrying too much about different things: 0 = Not at all Trouble relaxin = Not at all Being so restless that it is hard to sit still: 0 = Not at all Becoming easily annoyed or irritable: 0 = Not at all Feeling afraid as if something awful might happen: 0 = Not at all Total SHASHANK-7 score (0-4 normal; 5-9 mild; 10-14 moderate; 15-21 severe): 0 Source: Developed by Drs. Grayson Brooks, Yesenia Fournier, Adin Seaman and colleagues, with an educational carey from [employer]. SHASHANK-7 Assessment Billing SHASHANK-7 Assessment Tool: SHASHANK-7 Assessment 42481 Physical exam (Primary Care) Vital Signs: Last Vital Signs Pulse 54 11/14/24 15:26 BP 102/66 11/14/24 15:26 Pulse Ox 96 11/14/24 15:26 Oxygen Delivery Method Room Air 11/14/24 15:26 BMI result Body Mass Index 40.9 Tobacco/Smoking Status: Tobacco use Status Tobacco use date assessed 11/14/24 11/14/24 15:28 Patient Tobacco Use Status Never used Tobacco 11/14/24 15:26 e-Cigarette/Vaping Use Never Used 11/14/24 15:26 PHQ-9: PHQ-9 Score PHQ-9: Total score 0 11/14/24 15:59 Depression Screening Interpretation: Negative Thrive Assessment: Date of Thrive Assessment Date Thrive assessed 11/14/24 11/14/24 15:28 Currently or been in a relationship where the following occur: No concerns reported Coding Level of Care Code Est Pt Prev Care 40-64y(28180) Diagnoses Cyst of right kidney N28.1 Physical exam Z00.00 Screening PSA (prostate specific antigen) Z12.5 Vitamin D deficiency E55.9 Anxiety F41.9 PAF (paroxysmal atrial fibrillation) I48.0 Bradycardia R00.1 Abdominal pain R10.9 Gallstones K80.20 Additional Codes SHASHANK-7 Assessment Billing - SHASHANK-7 Assessment Tool: SHASHANK-7 Assessment 21566 ([id number]) PHQ-9 - 41108 - PHQ-9 Billing: Yes ([id number]) Assessment & Plan Assessment & Plan (1) Cyst of right kidney: Code(s): N28.1 - Cyst of kidney, acquired Category: Medical (2) Physical exam: Code(s): Z00.00 - Encounter for general adult medical examination without abnormal findings Category: Medical (3) Screening PSA (prostate specific antigen): Code(s): Z12.5 - Encounter for screening for malignant neoplasm of prostate Category: Medical (4) Vitamin D deficiency: Code(s): E55.9 - Vitamin D deficiency, unspecified Category: Medical (5) Anxiety: Code(s): F41.9 - Anxiety disorder, unspecified Category: Medical (6) PAF (paroxysmal atrial fibrillation): Code(s): I48.0 - Paroxysmal atrial fibrillation Category: Medical (7) Bradycardia: Code(s): R00.1 - Bradycardia, unspecified Category: Medical (8) Abdominal pain: Code(s): R10.9 - Unspecified abdominal pain Category: Medical (9) Gallstones: Code(s): K80.20 - Calculus of gallbladder without cholecystitis without obstruction Category: Medical Plan . Orders: Orders Complete Blood Count Auto Diff Today Z00.00 - Encounter for general adult medical examination without abnormal findings TSH reflex Free T4 Today Z00.00 - Encounter for general adult medical examination without abnormal findings Prostate Specific Antigen Scr Today Z12.5 - Encounter for screening for malignant neoplasm of prostate Vitamin D 25-OH Total Today E55.9 - Vitamin D deficiency, unspecified Comprehensive Wells. Panel Fast Today Z00.00 - Encounter for general adult medical examination without abnormal findings UA CC w/rflx Micro + Cult Today Z00.00 - Encounter for general adult medical examination without abnormal findings Lipid Panel Today Z00.00 - Encounter for general adult medical examination without abnormal findings Referrals Urology Referral N28.1 - Cyst of kidney, acquired Medications: New buspirone 5 mg PO BID 30 days 60 tabs 2RF
--- OUTSIDE RECORDS SUMMARY | 2024-11-14 19:21 | XMS_ITS ---
Author Organization [facility] Address [address] [place] [phone] Care Team Providers Care Manager Security And Safety Name Role Phone SANKET MORILLO Primary Care Provider Vivek Garcia Jr [phone] REASON FOR VISIT looking for soon am appointment for cholelithiasis Encounters Encounter Location Date Provider Diagnosis [facility] [address] [place] [phone] 10/26/2024 Vivek Kellre Jr PLAN OF TREATMENT No Information
--- OUTSIDE RECORDS SUMMARY | 2024-11-14 19:22 | XMS_ITS | Patient Health Record ---
Author Organization [facility] Address [address] [place] [phone] Care Team Providers Care Home Mission Worker Name Role Phone SANKET MORILLO Primary Care Provider Vivek Garcia Jr [phone] ALLERGIES No Known Allergies REASON FOR REFERRAL [...] Problem Colon cancer screening (Z12.11) Active confirmed [id number] Problem Encounter for other preprocedural examination (Z01.818) Active confirmed 950171352 Problem manager intermediate (current) use of aspirin (Z79.82) Active confirmed [id number] Encounters Encounter Location Date Provider Diagnosis [facility] [address] [place] [address] 10/26/2024 Vivek Keller Jr PLAN OF TREATMENT Future Test Test Name Order Date COLONOSCOPY 09/04/2021 Insurance Providers Payer Name Payer Address Payer Phone Subscriber Number Group Number Insured Name Patient Relationship to Insured Coverage Start Date Coverage End Date [facility] [address] [place] [address] [id number] SANKET CROCKETT Self - patient is the insured MEDICAL (GENERAL) HISTORY Medical History History ICD Code Hypertension Hypothyroid Gout CANDY/CPAP Hypogonadism Nephrolithiasis Surgical History Surgery Date(Month/Year) Hospitalization History Reason Date(Month/Year) Passed a kidney stone 2020
== END 2024-11-14 16:47 | disposition home or self-care (01) ==
PROVIDERS: PCP Nurse Practitioner Family; Visit Provider Nurse Practitioner Family
DX: Z00.00 Encounter for general adult medical examination without abnormal findings (principal); I48.0 Paroxysmal atrial fibrillation; N28.1 Cyst of kidney, acquired; Z12.5 Encounter for screening for malignant neoplasm of prostate; E55.9 Vitamin D deficiency, unspecified; F41.9 Anxiety disorder, unspecified; R00.1 Bradycardia, unspecified; R10.9 Unspecified abdominal pain; K80.20 Calculus of gallbladder without cholecystitis without obstruction

== ENCOUNTER → 2024-11-14 15:17 | Outpatient (BNVA) | payer BC, SELFPAY | PROVIDERS: PCP Nurse Practitioner Family; Visit Provider Nurse Practitioner Family | DX: Z00.00 Encounter for general adult medical examination without abnormal findings (principal); N28.1 Cyst of kidney, acquired; E55.9 Vitamin D deficiency, unspecified; F41.9 Anxiety disorder, unspecified; I48.0 Paroxysmal atrial fibrillation; R00.1 Bradycardia, unspecified; R10.9 Unspecified abdominal pain; K80.20 Calculus of gallbladder without cholecystitis without obstruction | CPT/HCPCS: 96127 ==

== ENCOUNTER 2024-11-22 08:56 | Outpatient (REF) | payer BC, SELFPAY ==
[2024-11-22 10:18] LABS: Appearance Urine Clear; Color Urine Yellow; Glucose Urine UA Negative (Negative); Leukocyte Esterase Urine Negative (Negative); Nitrite Urine Negative (Negative); Specific Gravity - Urine 1.015 (1.005-1.025); Urine Blood Negative (Negative); Urine Ketones Negative (Negative); Urine Protein Negative (Neg-Trace)
[2024-11-22 10:40] LABS: MANUAL DIFF FLAG NO
[2024-11-22 10:58] LABS: Basophils Percent Auto 0.8 % (0-2); Eosinophils Absolute Auto 0.1 X10*3/uL (0.0-0.4); Eosinophils Percent Auto 3.1 % (0-4); Hematocrit 44.6 % (42.0-52.0); Hemoglobin 15.2 g/dl (14.0-18.0); Imm Gran Abs Auto 0.01 X10*3/uL (0.00-0.03); Imm Gran Pct Auto 0.3 % (0.0-0.4); Lymphocytes Absolute Auto 0.9 X10*3/uL (1.2-4.9); Lymphocytes Percent Auto 23.8 % (20-40); Mean Corpuscular HGB Conc 34.1 g/dl (31.0-36.0); Mean Corpuscular Hemoglobin 33.2 pg (27.0-33.0); Mean Corpuscular Volume 97.4 fL (80.0-98.0); Mean Platelet Volume 10.9 fL (9.4-12.4); Monocytes Absolute Auto 0.4 X10*3/uL (0.1-1.2); Neutrophils Absolute Auto 2.4 x10*3/uL (2.0-8.3); Platelet Count 159 X10*3/uL (160-400); Red Blood Count 4.58 X10*6/uL (4.60-5.80); Red Cell Distribution Width 13.1 % (11.0-16.0); White Blood Count 3.9 X10*3/uL (4.8-10.8)
[2024-11-22 11:35] LABS: Alanine Aminotransferase 26 U/L (0-40); Albumin Level 4.2 g/dL (3.5-5.0); Alkaline Phosphatase 53 U/L (39-117); Anion Gap 18 (12-20); Aspartate Amino Transferase 25 U/L (5-37); Bilirubin Total 0.7 mg/dL (0.0-1.0); Blood Urea Nitrogen 14 mg/dL (9-16); Calcium 9.2 mg/dL (8.4-10.2); Carbon Dioxide 29 mmol/L (22-29); Chloride 102 mmol/L (96-108); Cholesterol 154 mg/dL (<200); Estimated Glomerular Filt Rate > 60; Glucose Fasting 92 mg/dL (60-99); HDL Cholesterol 42 mg/dL (>40); LDL Cholesterol Calculated 102 mg/dL (<100); Potassium 4.7 mmol/L (3.3-5.1); Sodium 144 mmol/L (135-145); Total Protein 7.3 g/dL (6.5-8.0); Triglycerides 51 mg/dL (<150)
[2024-11-22 11:36] LABS: TSH reflex Free T4 1.43 uIU/mL (0.32-4.0); Vitamin D 25-OH Total 23.4 ng/mL (>30)
== END 2024-11-22 08:57 | disposition home or self-care (01) ==
LOC: HO.HMGCLDS 08:56
PROVIDERS: PCP Nurse Practitioner Family; Visit Provider Nurse Practitioner Family
DX: Z00.00 Encounter for general adult medical examination without abnormal findings (principal); E55.9 Vitamin D deficiency, unspecified; Z12.5 Encounter for screening for malignant neoplasm of prostate
CPT/HCPCS: 36415; 80053; 80061; 81003; 82306; 84153; 84443; 85025

== ENCOUNTER 2024-12-08 07:32 | Outpatient (REF) | payer BC, SELFPAY ==
--- NOTE | ~2024-12-08 | CT_ITS ---
EXAMINATION: CT CHEST WITHOUT CONTRAST CLINICAL INFORMATION: Other diseases of pulmonary vessels. COMPARISON: CT angiogram chest 06/14/2021. TECHNIQUE: Multidetector volumetric CT imaging of the chest was done. Axial MIP volume rendering provided. Sagittal and coronal reformatted images were obtained. This CT examination was performed using dose optimization techniques as appropriate, variously including the following: *Automated exposure control *Adjustment of mA and/or kV according to patient size (this includes techniques or standardized protocols for targeted exams where dose is matched to indication/reason for exam; i.e. extremities or head) *Use of iterative reconstruction technique FINDINGS: LUNGS: -The lungs are clear bilaterally. No abnormal opacities. -Small airways are normal. -No effusion or pneumothorax. MEDIASTINUM: -Normal thyroid. -Aorta is normal in caliber and course. -Main pulmonary artery prominence suggesting possible increased pulmonary pressures. Diameter measures 3.8 cm. -Borderline cardiomegaly. Mild biventricular enlargement. No pericardial effusion. -No abnormal lymph nodes or masses. The esophagus is normal. -Probable small type I hiatus hernia. CORONARY ARTERY CALCIFICATION: Mild. PLEURA: -There is no pleural effusion. No pleural mass or thickening. AXILLA/CHEST WALL: -No lymphadenopathy. -There is mild male gynecomastia. UPPER ABDOMEN: -There are numerous calcified gallstones within the gallbladder. No evidence of inflammation. -There is mild hepatomegaly. No focal hepatic lesion. Normal hepatic attenuation. -Mild nonspecific perirenal stranding. -Remainder of the imaged upper abdominal contents appear normal. OSSEOUS STRUCTURES: -There is no suspicious lytic or blastic bone lesion. -There are mild spinal degenerative changes. CT/CT chest wo IV con IMPRESSION: 1. The lungs are clear bilaterally without evidence of active pulmonary disease. 2. Main pulmonary artery is enlarged, suggestive of increased pulmonary pressures. 3. There is mild biventricular enlargement with borderline cardiac enlargement. Mild coronary calcification. 4. Mild hepatomegaly with no focal hepatic lesion. 5. Cholelithiasis. Electronically signed by: Frantz Licea MD 12/08/2024 08:37 AM [facility]
--- OUTSIDE RECORDS SUMMARY | 2024-12-08 07:35 | XMS_ITS ---
Author Organization [facility] Address [address] [place] [address] Care Team Providers Care Furnace Tender Name Role Phone SANKET MORILLO Primary Care Provider Vivek Garcia Jr REASON FOR VISIT looking for soon am appointment for cholelithiasis Encounters Encounter Location Date Provider Diagnosis [facility] [address] [place] [phone] 10/26/2024 Vivek Keller Jr PLAN OF TREATMENT No Information
--- OUTSIDE RECORDS SUMMARY | 2024-12-08 07:35 | XMS_ITS | Patient Health Record ---
Author Organization [facility] Address [address] [place] [phone] Care Team Providers Care Addressograph Operator Name Role Phone SANKET MORILLO Primary Care [...] Problem Colon cancer screening (Z12.11) Active confirmed 256114804 Problem Encounter for other preprocedural examination (Z01.818) Active confirmed 018470281 Problem half-way (current) use of aspirin (Z79.82) Active confirmed [id number] Encounters Encounter Location Date Provider Diagnosis [facility] [address] [place] [address] 10/26/2024 Vivek Keller Jr PLAN OF TREATMENT Future Test Test Name Order Date COLONOSCOPY 09/04/2021 Insurance Providers Payer Name Payer Address Payer Phone Subscriber Number Group Number Insured Name Patient Relationship to Insured Coverage Start Date Coverage End Date [facility] [address] [place] [address] [id number] SANKET CROCKETT Self - patient is the insured MEDICAL (GENERAL) HISTORY Medical History History ICD Code Hypertension Hypothyroid Gout CANDY/CPAP Hypogonadism Nephrolithiasis Surgical History Surgery Date(Month/Year) Hospitalization History Reason Date(Month/Year) Passed a kidney stone 2020
== END 2024-12-08 07:33 | disposition home or self-care (01) ==
LOC: HO.CT 07:32
PROVIDERS: PCP Nurse Practitioner Family; Visit Provider Internal Medicine Cardiovascular Disease
DX: R93.89 Abnormal findings on diagnostic imaging of other specified body structures (principal); I28.8 Other diseases of pulmonary vessels
CPT/HCPCS: 71250

== ENCOUNTER → 2024-12-08 07:34 | Outpatient (BNV) | payer BC, SELFPAY | PROVIDERS: PCP Nurse Practitioner Family; Visit Provider Radiology Diagnostic Radiology | DX: K80.20 Calculus of gallbladder without cholecystitis without obstruction (principal) | CPT/HCPCS: 71250 ==

== ENCOUNTER → 2025-01-11 08:03 | Outpatient (REF) | payer BC, SELFPAY ==
--- NOTE | 2025-01-11 08:06 | CA_ITS ---
Transthoracic Echocardiogram Patient (Last, First, Middle): Mariusz Orlando T Gender: Male Date of : 1965 Age: 59 Procedure Date: 01/11/2025 Procedure Type: Transthoracic Echocardiogram Location: OP Height: 180.34 cm Weight: 124.74 kg BSA: 2.41 m2 Heart Rate: bpm BP: 126 / 88 mmHg Health Data Analyst: FRANCISCO Referring MD: Madhav Cm MD Therapeutic Support Staff: Arsalan Giordano MD Symptoms: I42.9 - Cardiomyopathy, unspecified Study Quality: Adequate ECG Rhythm: Sinus Conclusions: - 1. Normal LV ejection fraction of 60 65% with mild LVH with impaired relaxation filling pattern 2. Mildly dilated left atrium 3. Normal cardiac valvular Dopplers next 4. Normal RV systolic pressure 5. Mildly dilated ascending aorta at 3.7 cm 6. No pericardial effusion Findings Left Ventricle Normal left ventricular size and systolic function. There is mildly increased left ventricular wall thickness. The visually estimated ejection fraction is between 60-65%. Spectral Doppler is indicative of an impaired relaxation filling pattern. E/E prime ratio is <8, consistent with normal filling pressures. Evidence suggests grade I (mild) diastolic dysfunction. Wall Motion Rest Echo Findings The basal inferior, mid inferior, and basal inferoseptal segments are hypokinetic. All other scored wall segments showed normal motion. Right Ventricle Normal right ventricular cavity size and systolic function. Atria The left atrium is mildly dilated. The right atrium is normal in size. Aortic Valve Normal aortic valve structure and function. There is no aortic valve stenosis. There is no aortic valve regurgitation. Mitral Valve Normal mitral valve structure and function. There is trace mitral valve regurgitation. There is no mitral valve stenosis. Pulmonic Valve The pulmonic valve is likely normal. There is trace pulmonic valve regurgitation. Tricuspid Valve Normal tricuspid valve structure. There is trace tricuspid valve regurgitation. The right ventricular systolic pressure is normal. The right ventricular systolic pressure is 24 mmHg. Normal right atrial pressure. There is no evidence of pulmonary hypertension. Great Vessels The pulmonary artery was not well visualized. There is mild dilatation of the ascending aorta measuring 3.70 cm. Venous The inferior vena cava is normal in size and collapses greater than 50% with inspiration. Pericardium/Pleural There is no evidence of pericardial effusion. Prior Study Comparison Changes noted compared to prior study dated: 10/10/2024. LV systolic function has normalized Measurements 2D Linear Measurements IVSd: 1.17 0.6-0.9/0.6-1.0 cm LVIDd: 5.66 3.9-5.3/4.2-5.9 cm LVIDd Index: 2.35 2.4-3.2/2.2-3.1 cm/m2 LVIDs: 3.57 2.0-3.6 cm LVPWd: 1.33 0.7-1.1 cm LA Diam: 4.70 2.7-3.8/3.0-4.0 cm LAIDs Index: 1.95 1.5-2.3 cm/m2 LV Mass: 376.50 67-162/88-224 g LV Mass Index: 156.22 43-95/49-115 g/m2 LVOT Diam: 2.50 3.0+(-)1.3 cm 2D Systolic Function EF 4C: 59.30 >55% EF 2C: 70.00 >55% EF BiP: 64.60 >55% Mitral Valve MV Pk E: 0.55 MV PK A: 0.57 MV Decel Time: 291.00 E/A: 1.00 E'Lateral: 7.29 E'Medial: 3.92 E/E' Med: 14.10 E/E' Lat: 7.60 PHT: 85.00 MVA PHT: 2.59 Decel [place]: 1.90 Aortic Valve AoV Pk Arthur: 1.00 AoV Mn Arthur: 0.72 AoV VTI: 0.25 AoV Pk Grad: 4.00 Aov Mn Grad: 2.00 JOHN Cont.VTI: 3.81 LVOT LVOT Pk Arthur: 0.80 LVOT Mn Arthur: 0.46 LVOT VTI: 0.20 LVOT Pk Grad: 3.00 LVOT Mn Grad: 1.00 LVOT Diam: 2.50 LVOT Area: 4.91 Diastolic Function MV Pk E: 0.55 MV Pk A: 0.57 E/A: 1.00 E'Medial: 3.92 E/E' Med: 14.10 E' Laterial: 7.29 E/E' Lat: 7.60 Right Ventricle TAPSE (mm): 23.10 TVS' Arthur: 14.60 Tricuspid Valve TR Pk Arthur: 2.28 TR Pk Grad: 21.00 RA Press: 3.00 RVSP: 24.00 Great Vessels Aorta Sinus of Valsalva: 4.89 2.0-3.5 cm Ao Asc: 3.70 2.1-3.4 cm Updated in Other Vendor System with Status of Final Arsalan Giordano MD electronically signed on 01/12/2025 12:59:11 PM with status of Final
--- OUTSIDE RECORDS SUMMARY | 2025-01-11 08:14 | XMS_ITS | Patient Health Record ---
Author Organization [facility] Address [address] [place] [id number] Care Team Providers Care Cement Storage Worker Name Role Phone SANKET MORILLO Primary Care Provider Vivek Garcia Jr Allergies No Known Allergies Reason For Referral No Information Medications Medication SIG (Take, Route, Frequency, Duration) Notes [...] daily Active Cyclobenzaprine HCl Active Testosterone Active Immunizations Vaccine Route Administration Date Status Comme nts Influenza Unknown 09/04/2021 Refused Social History Tobacco Use: Social History Observation Description Date Details (start date - stop date) Never Smoker NA - NA Tobacco Use/Smoking Question Answer Notes Patient is [...] monthly (1 point) Points 4 Interpretation Positive Problems Problem Type SNOMED Code ICD Code Onset Dates Problem Status W/U Status Risk Notes Problem 129730121 Colon cancer screening (Z12.11) Active confirmed Problem 971197474 Encounter for other preprocedural examination (Z01.818) Active confirmed Problem [id number] skilled nursing (current) use of aspirin (Z79.82) Active confirmed Encounters Encounter Location Date Provider Diagnosis [facility] [address] [place] [address] 10/26/2024 Vivek Keller Jr Plan Of Treatment Future Test Test Name Order Date COLONOSCOPY 09/04/2021 Insurance Providers Payer Name Payer Address Payer Phone Subscriber Number Group Number Insured Name Patient Relationship to Insured Coverage Start Date Coverage End Date [facility] [address] [place] [address] [id number] SANKET CROCKETT Self - patient is the insured Medical (General) History Medical History History ICD Code Hypertension Hypothyroid Gout CANDY/CPAP Hypogonadism Nephrolithiasis Surgical History Surgery Date(Month/Year) Hospitalization History Reason Date(Month/Year) Passed a kidney stone 2020
--- OUTSIDE RECORDS SUMMARY | 2025-01-11 08:14 | XMS_ITS ---
Author Organization [facility] Address [address] [place] [id number] Care Team Providers Care Hand Slitter Name Role Phone SANKET MORILLO Primary Care Provider Vivek Garcia Jr REASON FOR VISIT looking for soon am appointment for cholelithiasis Encounters Encounter Location Date Provider Diagnosis [facility] [address] [place] [phone] 10/26/2024 Vivek Keller Jr Plan Of Treatment No Information Progress Notes * SANKET CROCKETT TDOB:1965 ( 59 yo M)Acc No.[id number]:10/26/2024 Patient:?CROCKETTSANKET Christal :1965???Age:59 Y???Sex:Male Address:[address] [place] [address], [id number] * true * Date:? Generated for Preetii kimmy/Maria Isabel/eTransmitting on:?01/11/2025 08:14 AM EDT
== END ==
LOC: HO.CARD 08:03
PROVIDERS: PCP Nurse Practitioner Family; Visit Provider Internal Medicine Cardiovascular Disease
DX: I42.9 Cardiomyopathy, unspecified (principal)
CPT/HCPCS: 93306

== ENCOUNTER → 2025-01-11 08:06 | Outpatient (BNV) | payer BC, SELFPAY | PROVIDERS: PCP Nurse Practitioner Family; Visit Provider Internal Medicine Cardiovascular Disease | DX: I51.7 Cardiomegaly (principal); I51.89 Other ill-defined heart diseases | CPT/HCPCS: 93306 ==

== ENCOUNTER 2025-01-13 10:30 | Day surgery (SDC) | payer BC, SELFPAY ==
--- OUTSIDE RECORDS SUMMARY | 2024-12-20 13:38 | XMS_ITS ---
Author Organization [facility] Address [address] [place] [phone] Care Team Providers Care Flaring Machine Operator Name Role Phone SANKET MORILLO Primary Care Provider Vivek Garcia Jr [phone] REASON FOR VISIT looking for soon am appointment for cholelithiasis Encounters Encounter Location Date Provider Diagnosis [facility] [address] [place] [phone] 10/26/2024 Vivek Keller Jr PLAN OF TREATMENT No Information
--- OUTSIDE RECORDS SUMMARY | 2024-12-20 13:38 | XMS_ITS | Patient Health Record ---
Author Organization [facility] Address [address] [place] [phone] Care Team Providers Care Business Architect Name Role Phone SANKET MORILLO Primary Care [...] Problem Colon cancer screening (Z12.11) Active confirmed 590312891 Problem Encounter for other preprocedural examination (Z01.818) Active confirmed 080304426 Problem shelter (current) use of aspirin (Z79.82) Active confirmed [id number] Encounters Encounter Location Date Provider Diagnosis [facility] [address] [place] [address] 10/26/2024 Vivek Keller Jr PLAN OF TREATMENT Future Test Test Name Order Date COLONOSCOPY 09/04/2021 Insurance Providers Payer Name Payer Address Payer Phone Subscriber Number Group Number Insured Name Patient Relationship to Insured Coverage Start Date Coverage End Date [facility] [address] [place] [address] [id number] SANKET CROCKETT Self - patient is the insured MEDICAL (GENERAL) HISTORY Medical History History ICD Code Hypertension Hypothyroid Gout CANDY/CPAP Hypogonadism Nephrolithiasis Surgical History Surgery Date(Month/Year) Hospitalization History Reason Date(Month/Year) Passed a kidney stone 2020
[2025-01-04 11:25] VITALS: BMI 38.9
[2025-01-13] VITALS (13 sets, daily range): BP systolic 113–163; BP diastolic 61–87; PULSE 41–49; RESP 12–18; TEMP 36.3–36.6; O2SAT 92–99; BMI 39.9
[2025-01-13] MEDS: Lactated Ringers 1,000 ML 50 ML IVCONT (11:37)
--- NOTE | 2025-01-13 11:38 | HO.ANESPROP2 ---
Documented by User: Octavia Palm NP 01/04/25 14:54 HPI - Anesthesia Eval Consult details Narrative: 59yo M for Cholecystectomy Laparoscopic,possible open, 01/13/25 Cardiac optimized. Follows [facility] Cardiology. Afib: with RVR incidental finding prior to stress test. s/p BRICE/cardioversion 09/2024. Eval by EP at [facility] with plan for catheter ablation in the summer Cardiomyopathy: likely tachy related Noted in EP note: Pt with signif lifestyle change since afib dx. Regular exercise and healthy diet now. ECHO 01/11/25 pending [facility] Active Problems Active Problems: All Active Problems Leukopenia (Acute) Abdominal pain (Acute) Anxiety (Acute) Vitamin D deficiency (Acute) Cyst of right kidney (Acute) Enlarged pulmonary artery (Acute) PAF (paroxysmal atrial fibrillation) (Acute) Gallstones (Acute) Cardiomyopathy (Acute) Atrial fibrillation with rapid ventricular response (Acute) SOB (shortness of breath) (Acute) Varicose veins of right lower extremity with inflammation (Acute) Varicose veins of left lower extremity with inflammation (Acute) Varicose veins of bilateral lower extremities with pain (Acute) Screening PSA (prostate specific antigen) (Acute) Physical exam (Acute) Gout (Acute) Screening for colon cancer (Acute) Bradycardia (Acute) Past Medical History Medical History (Updated 01/04/25 @ 11:25 by Emily Bhatt RN) History of cardioversion Cardiomyopathy PAF (paroxysmal atrial fibrillation) Anxiety Leukopenia Renal calculi Gout Hypertension CANDY (obstructive sleep apnea) Hypothyroid Hypogonadism Family History Family history of problems with anesthesia: No Surgical History Surgical History (Updated 01/13/25 @ 11:31 by Alisa Lang RN) H/O vascular surgery Hx of colonoscopy History of Problems with Anesthesia: No Social History Social History Household Members: Family Housing: House Are you a primary lawn care specialist to a significant other at home: No Do you presently have visiting nurse or other home services: No Alcohol intake: current Alcohol intake frequency: a few times a month Alcohol type: beer Comment: exercises regularly Patient Tobacco Use Status: Never used Tobacco e-Cigarette/Vaping Use: Never Used Second Hand Smoke Exposure: No Use of substances other than those prescribed or required for medical reasons: No Have you been hit, kicked, punched, or otherwise hurt by someone within the past year? If so, by whom?: No Spiritual Healthcare Practices: none Tenriism Healthcare Practices: Buddhist Cultural Healthcare Practices: none Are you DNR?: No Advance Directives: Yes Advance Directives Information Provided: Yes Advance Directives on File: Yes Advance Directives Date on File: 11/15/21 Recently lost weight without trying: No Eating poorly because of decreased appetite: No Nutrition Risks: No Nutritional Risk Poor oral hygiene: No service: No Current occupational status: employed Current occupation: [employer] Current occupational exposures/hazards: No Cognitive needs: No Hearing needs: No Vision needs: No Meds Allergies Allergy/AdvReac Type Severity Reaction Status Date / Time No Known Allergies Allergy Verified 01/13/25 11:30 Home Medications ?Medication ?Instructions ?Recorded ?Confirmed ?Last Taken ?Type levothyroxine 175 mcg tablet 175 mcg PO QAM 06/14/21 01/13/25 01/13/25 History testosterone 10 mg/0.5 20 mg topical QAM 06/14/21 01/13/25 10/10/24 History gram/actuation transdermal gel pump amiodarone 200 mg tablet 200 mg PO QAM 01/04/25 01/13/25 01/13/25 History furosemide 20 mg tablet (Lasix) 20 mg PO QAM 01/04/25 01/13/25 01/12/25 History losartan 50 mg tablet 50 mg PO QAM 01/04/25 01/13/25 01/12/25 History metoprolol succinate 25 mg 25 mg PO QAM 01/04/25 01/13/25 01/13/25 History tablet,extended release 24 hr (Toprol XL) Exam Height,Weight and Vital Signs: Height 5 ft 11 in Weight 126.552 kg Pertinent Lab Results Pertinent Lab Results: Laboratory Tests 11/22/24 09:00 WBC 3.9 L Hgb 15.2 Hct 44.6 Plt Count 159 L Sodium 144 Potassium 4.7 Chloride 102 Carbon Dioxide 29 BUN 14 Creatinine 1.03 Narrative Narrative: EKG 11/2024 Ventricular Rate: 42 BPM Atrial Rate: 42 BPM P-R Interval: 186 ms QRS Duration: 108 ms Q-T Interval: 482 ms QTC Calculation(Bazett): 402 ms P Fairlee: 30 degrees R Fairlee: -39 degrees T Fairlee: 32 degrees Marked sinus bradycardia Left axis deviation Cannot rule out Anterior infarct , age undetermined Abnormal ECG No previous ECGs available Confirmed by Adrian Belcher ([id number]) on 12/15/2024 10:20:01 AM Assessment and Plan Assessment Anesthesia Assessment: Chart Reviewed Final Anesthetic Review Family History of Problems with Anesthesia: No History of Problems with Anesthesia: No Documented by User: Divine Reyes, DO 01/13/25 11:41 HPI - Anesthesia Eval Consult details Narrative: 59yo M for Cholecystectomy Laparoscopic,possible open, 01/13/25 Cardiac optimized. Follows [facility] Cardiology. Afib: with RVR incidental finding prior to stress test. s/p BRICE/cardioversion 09/2024. [place]. Moises by EP at [facility] with plan for catheter ablation in the summer Cardiomyopathy: likely tachy related Noted in EP note: Pt with signif lifestyle change since afib dx. Regular exercise and healthy diet now. Echo 01/11: EF 60-65%, mild grade I diastolic dysfunction PMFSH Past Medical History Medical History (Updated 01/04/25 @ 11:25 by Emily Bhatt, BILLY) History of cardioversion Cardiomyopathy PAF (paroxysmal atrial fibrillation) Anxiety Leukopenia Renal calculi Gout Hypertension CANDY (obstructive sleep apnea) Hypothyroid Hypogonadism Family History Family history of problems with anesthesia: No Surgical History Surgical History (Updated 01/13/25 @ 11:31 by Alisa Lang, RN) H/O vascular surgery Hx of colonoscopy History of Problems with Anesthesia: No Social History Social History Household Members: Family Housing: House Are you a primary lawn care specialist to a significant other at home: No Do you presently have visiting nurse or other home services: No Alcohol intake: current Alcohol intake frequency: a few times a month Alcohol type: beer Comment: exercises regularly Patient Tobacco Use Status: Never used Tobacco e-Cigarette/Vaping Use: Never Used Second Hand Smoke Exposure: No Use of substances other than those prescribed or required for medical reasons: No Have you been hit, kicked, punched, or otherwise hurt by someone within the past year? 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 [employer] Current occupational exposures/hazards: No Cognitive needs: No Hearing needs: No Vision needs: No Meds Allergies Allergy/AdvReac Type Severity Reaction Status Date / Time No Known Allergies Allergy Verified 01/13/25 11:30 Home Medications ?Medication ?Instructions ?Recorded ?Confirmed ?Last Taken ?Type levothyroxine 175 mcg tablet 175 mcg PO QAM 06/14/21 01/13/25 01/13/25 History testosterone 10 mg/0.5 20 mg topical QAM 06/14/21 01/13/25 10/10/24 History gram/actuation transdermal gel pump amiodarone 200 mg tablet 200 mg PO QAM 01/04/25 01/13/25 01/13/25 History furosemide 20 mg tablet (Lasix) 20 mg PO QAM 01/04/25 01/13/25 01/12/25 History losartan 50 mg tablet 50 mg PO QAM 01/04/25 01/13/25 01/12/25 History metoprolol succinate 25 mg 25 mg PO QAM 01/04/25 01/13/25 01/13/25 History tablet,extended release 24 hr (Toprol XL) Exam Exam Date and Time: 01/13/25 1138 Height,Weight and Vital Signs: Height 5 ft 11 in Weight 126.552 kg Vital Signs Temperature 97.3 F 01/13/25 11:18 Pulse Rate 47 L 01/13/25 11:18 Respiratory Rate 16 01/13/25 11:18 Blood Pressure 148/71 H 01/13/25 11:18 Pulse Oximetry 99 01/13/25 11:18 Oxygen Delivery Method Room Air 01/13/25 11:18 Temperature 97.3 F 01/13/25 11:18 Pulse Rate 47 L 01/13/25 11:18 Respiratory Rate 16 01/13/25 11:18 Blood Pressure 148/71 H 01/13/25 11:18 Pulse Oximetry 99 01/13/25 11:18 Oxygen Delivery Method Room Air 01/13/25 11:18 Airway Mallampati Class: I TM Dist: <=3cm Neck ROM: Full Loose/Missing/Broken Teeth: No (patient denies any loose or broken teeth) Heart: S1S2 Lungs: CTAB Assessment and Plan Assessment Anesthesia Assessment: Anesthesia Plan Discussed and Chart Reviewed Final Anesthetic Review Family History of Problems with Anesthesia: No History of Problems with Anesthesia: No NPO: Yes ASA Class: III Final Preanesthetic Review: No Changes in Pt Med Stat, Meds/Allgs Chart Reviewed, Consent Obtained/Reviewed and Anes Risks/Benef Reviewed Patient Risk: Intermediate Procedure Risk: Intermediate Anesthetic Plan Anesthetic Plan: GA and Agree w/ Assess. and Plan Disposition: Standard PACU
--- NOTE | 2025-01-13 11:39 | MHC.SHP ---
Pre-Procedural Eval Section A - 24 Hr Update-Section A only Date of Service: 01/13/25 Section B - Complete if H&P > 30 days Chief Complaint: Calculus of gallbladder without cholecystitis Details of Present Illness: has gallstones with periodic RUQ pain Relevant Family History (Specify if Yes): No Relevant Social History: None Present Medications: see Short Stay Collaborative assessment Medical History: Significant History (Atrial fibrillation, vitamin-D deficiency, varicose vein) History of Previous Operations: No relevant previous surgery Allergies: Allergies Allergy/AdvReac Type Severity Reaction Status Date / Time No Known Allergies Allergy Verified 01/13/25 11:30 Review of Systems Sugical H&P ROS: Negative: Constitution, Cardiovascular and Respiratory Exam Surgical H&P Exam: Normal: Heart and Normal: Abdomen and Significant Findings: Lungs (Atrial fibrillation) Plan Diagnosis/Plan: Unchanged I have reviewed the history and physical and performed a pertinent physical examination on my patient. No changes have occurred unless specified. Time Spent With Patient Time: Total time managing care of this patient today ____ minutes.
[2025-01-13] MEDS: cefoTEtan disodium 2 GM VIAL IVPUSH (12:00)
--- NOTE | 2025-01-13 13:28 | W.PM.OPN ---
Operative Note Operative Note Date of Service: 01/13/25 Narrative: Preop diagnosis: Gallstones, with symptoms Postop diagnosis: The same, with chronic cholecystitis, thick chronically fibrotic omentum surrounding the gallbladder all the way to the neck Procedure: Laparoscopic cholecystectomy, extensive lysis of adhesions Surgeon: Dennis Melton MD multimedia production assistant: RICKEY Cerna The patient is a 59-year-old male note of gallstones and a history of periodic right upper quadrant pain and tenderness. In view of this, he wanted to proceed with cholecystectomy. He understood the technique of the planned procedure as well as the risks, benefits, and alternatives He was brought to the operating room and placed supine under general anesthesia via endotracheal tube. The abdomen was prepped and draped in usual sterile fashion. A surgical time-out was done. The patient received Cefotan 2 g IV preoperatively. I made a short supraumbilical incision with a blade 15. This carried down through the full-thickness of the skin and subcutaneous fat down to the fascia. The fascia was incised. The peritoneum was entered. Through this incision a Costa port was introduced. Pneumoperitoneum was introduced to a pressure of 15 mm Hg. From here on the rest of procedure was done under vision with the 10 mm laparoscope. With laparoscopic visualization and inserted a 5/12 mm port in the epigastric area below the subcostal margin. Two 5 mm ports introduced a small incision below the subcostal margin along the anterior axillary line and the midclavicular line. Graspers were placed through this working ports. The patient was placed in head up and [id number] position. The very of the fundus of the gallbladder was seen but the rest of this was covered with thick, fibrotic omentum we are able to apply a grasper at the fundus of the gallbladder and this was used to retract the gallbladder cephalad. By doing so we carefully peeled off very thick omentum from the anterior wall of the gallbladder as well as the liver edge. This part of the procedure took an extended period of the time because of the extent of the adherent omentum. Eventually was able to visualize the rest of the anterior wall of the gallbladder as well as the pouch. He was able to apply a grasper and this was used to retract the gallbladder laterally. At this point we were retracting the gallbladder in a cephalad and lateral fashion. This was putting the area of the cyst duct on stretch. The area of the neck was very thickened with adherent, indurated fat all the way distally. He had careful dissection using the [place] dissector. Eventually I was actually able to identify the cystic artery. I was able to dissect this carefully and confirmed its direction all the way to the body of the gallbladder. We were therefore able to clip this and divide this with the Endo scissors between clips We continued to gently dissect the neck of the gallbladder. However, the very thickened fibrotic and indurated fat surrounding this precluded safe dissection. We could not really identify anything past the neck of the gallbladder. We therefore proceeded to gently dissect the rest of the body of the gallbladder by carefully this from the liver bed with the L hook cautery. By doing so was able to clearly identify the entire gallbladder all the way to the neck. There were no other structures. In view of the difficult anatomy past the neck of the gallbladder with the high risk of injuring the ducts and the vessels, I decided that it would be best to transect the gallbladder at the distal neck. I used an Endo-SHEELA 30 mm stapler to divide this. This was fired and the neck was transected. There was note of stones at the staple line but the staple lines themselves were intact I continued to separate the rest of the gallbladder from the liver bed using the L hook cautery. This part of the procedure again took an extended period time in view of the poor planes. Eventually we are able to completely separate the gallbladder and this was retrieved through an endobag through the umbilical incision. I reinserted all ports and re-insufflated. I examined the subhepatic space. There was note of good hemostasis We retrieved some stones that had earlier passed to a tear in the gallbladder wall. I decided to position and a 7. OLGA drain in the subhepatic space was of the risk of the staple line breaking apart in view of the presence of the stones along the staple line. I positioned this at the subhepatic space and this was brought out through the lateral most port site I re-examined the staple neck of the gallbladder and this still appeared intact without any bile leak I irrigated. I tightened all the irrigant fluid. We confirmed hemostasis. There was no evidence of any bile leak I observed all 4 quadrants. There was no other pathology or any suggestion of any bowel injury I therefore desufflated the port sites. I removed all ports under vision with the laparoscope. The umbilical port was removed last The OLGA drain was secured to the skin with nylon 3-0 sutures The fascia of the umbilical incision was closed with a [id number] Polysorb 0 stitch. Skin closure was achieved on all incisions using Polysorb 4-0 subcuticular running sutures. All incisions were infiltrated with Marcaine 0.5% for postop analgesia Dressings were applied. The procedure was completed The patient tolerated procedure well. There were no immediate complications. Initial and final counts of sponges and instruments were correct. Estimated blood loss was about 75 cc The patient was extubated without difficulty and transferred to the recovery room with stable vital signs He will discharge with instructions for the OLGA drain care.
[2025-01-13] MEDS: oxyCODONE HCl Immed Release 5 MG TABLET PO (14:20)
[2025-01-13] MEDS: fentaNYL citrate/PF 100 MCG/2 ML VIAL 50 MCG IVPUSH ×2 (14:52→14:57)
[2025-01-13] MEDS: Ondansetron ODT 4 MG TAB.RAPDIS TRANSLINGU (16:17)
== END 2025-01-13 16:20 | disposition home or self-care (01) ==
PROVIDERS: PCP Nurse Practitioner Family; Visit Provider Surgery
PROC: 0FT44ZZ Resection of Gallbladder, Percutaneous Endoscopic Approach (ICD-10-PCS; CPT 47562; principal; 2025-01-13 12:10)
DX: K80.10 Calculus of gallbladder with chronic cholecystitis without obstruction (principal); K82.8 Other specified diseases of gallbladder; K65.4 Sclerosing mesenteritis; I10 Essential (primary) hypertension; I48.0 Paroxysmal atrial fibrillation; E03.9 Hypothyroidism, unspecified; M10.9 Gout, unspecified; G47.33 Obstructive sleep apnea (adult) (pediatric); Z79.01 Long term (current) use of anticoagulants; Z79.899 Other long term (current) drug therapy; Z87.442 Personal history of urinary calculi; Z98.890 Other specified postprocedural states
CPT/HCPCS: 47562; 49329; 88304; J0131; J1100; J2003; J2250; J2405; J2704; J2795; J3010

== ENCOUNTER → 2025-01-13 10:30 | Outpatient (BNV) | payer BC, SELFPAY | PROVIDERS: PCP Nurse Practitioner Family; Visit Provider Surgery | DX: K80.11 Calculus of gallbladder with chronic cholecystitis with obstruction (principal) | CPT/HCPCS: 47562 ==

== ENCOUNTER 2025-01-19 10:30 | Outpatient (AMB) | payer BC, SELFPAY ==
--- NOTE | 2025-01-19 10:47 | MHC.OFFVIS ---
Vital Signs 01/19/25 10:55 Height 5 ft 11 in Weight 284 lb 6.341 oz BMI 39.7 BP 122/74 Blood Pressure Location Lt brachial Position Sitting Respiration 16 Intake Visit Reasons: remove drains Intake Note: Patient here s/p Laparoscopic cholecystectomy, extensive lysis of adhesions. OLGA drain in placed. Patient c/o: admits to continued discharge in the drains upo to 60ml last night Surgery: 01-13-2025 Shoe Fitter Required: No Accompanied by: Self / Same As Patient Allergies No Known Allergies Allergy (Verified 01/13/25 11:30) HPI HPI remove drains: Details: He underwent laparoscopic cholecystectomy last 01/13/2025. He tolerated procedure well. He had a very chronically inflamed gallbladder and I had to leave some of the neck because of the difficulty with the dissection. I had to leave a drain in place as well The OLGA drain output has been serosanguineous. It has been about 20-60 cc every day He has good oral intake. He says he does not take narcotics anymore. His only complaint is that he still feels occasionally bloated. [facility] Medical History History of cardioversion Cardiomyopathy PAF (paroxysmal atrial fibrillation) Anxiety Leukopenia Renal calculi Gout Hypertension CANDY (obstructive sleep apnea) Hypothyroid Hypogonadism Surgical History H/O vascular surgery Hx of colonoscopy Social History Household Members: Family Housing: House Are you a primary overnight caregiver to a significant other at home: No Do you presently have visiting nurse or other home services: No Alcohol intake: current Alcohol intake frequency: a few times a month Alcohol type: beer Comment: exercises regularly Patient Tobacco Use Status: Never used Tobacco e-Cigarette/Vaping Use: Never Used Second Hand Smoke Exposure: No Advance Directives Date on File: 11/15/21 service: No Current occupational status: employed 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 Current occupational exposures/hazards: No Cognitive needs: No Hearing needs: No Vision needs: No Review of Systems Const Denies chills and Denies fever(s) Card Denies chest pain at rest Resp Denies cough GI Denies nausea Physical Exam Vital Signs: Last Vital Signs Resp 16 01/19/25 10:55 BP 122/74 01/19/25 10:55 BMI result Body Mass Index 39.7 Const General: comfortable and no acute distress Eyes Other: Anicteric GI Other: Soft, all incisions are well healing, the OLGA drain is in place and has a scanty serosanguineous output Assessment & Plan Assessment & Plan (1) Gallstones: Code(s): K80.20 - Calculus of gallbladder without cholecystitis without obstruction Category: Medical Plan: Status post laparoscopic cholecystectomy. He looks well. His incisions are well healed. I removed the OLGA drain. I advised him to avoid lifting anything more than 20 lb for at least 3 more weeks I will see him in the office next week for another postop visit. He has good GI functions otherwise and clinically is doing well. Coding Level of Care Code Global (00651) Diagnoses Gallstones K80.20
[2025-01-19 10:55] VITALS: BP 122/74; RESP 16; BMI 39.7
--- OUTSIDE RECORDS SUMMARY | 2025-01-19 11:38 | XMS_ITS ---
Author Organization [facility] Address [address] [place] [address] Care Team Providers Care Manager Leasing Name Role Phone SANKET MORILLO Primary Care Provider Vivek Garcia Jr [phone] REASON FOR VISIT looking for soon am appointment for cholelithiasis Encounters Encounter Location Date Provider Diagnosis [facility] [address] [place] [phone] 10/26/2024 Vivek Keller Jr Plan Of Treatment No Information Progress Notes * SANKET CROCKETT TDOB:1965 ( 59 yo M)Acc No.[id number]:10/26/2024 Patient:?KEIRA SANKET Christal :1965???Age:59 Y???Sex:Male Address:[address] [place] [address], [address] * true * Date:? Generated for Preetii kimmy/Maria Isabel/eTransmitting on:?01/19/2025 11:38 AM EDT
--- OUTSIDE RECORDS SUMMARY | 2025-01-19 11:38 | XMS_ITS | Patient Health Record ---
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 (Z79.82) Active confirmed Encounters Encounter Location Date Provider Diagnosis [facility] [address] [place] [address] 10/26/2024 Vivek Keller Jr Plan Of Treatment Future Test Test Name Order Date COLONOSCOPY 09/04/2021 Insurance Providers Payer Name Payer Address Payer Phone Subscriber Number Group Number Insured Name Patient Relationship to Insured Coverage Start Date Coverage End Date [facility] [address] [place] [address] [phone] [id number] SANKET CROCKETT Self - patient is the insured Medical (General) History Medical History History ICD Code Hypertension Hypothyroid Gout CANDY/CPAP Hypogonadism Nephrolithiasis Surgical History Surgery Date(Month/Year) Hospitalization History Reason Date(Month/Year) Passed a kidney stone 2020
== END 2025-01-19 11:01 | disposition home or self-care (01) ==
LOC: HO.HGS 10:31
PROVIDERS: PCP Nurse Practitioner Family; Visit Provider Surgery
DX: K80.20 Calculus of gallbladder without cholecystitis without obstruction (principal)
CPT/HCPCS: 99024

== ENCOUNTER 2025-01-24 09:44 | Outpatient (AMB) | payer BC, SELFPAY ==
--- NOTE | 2025-01-24 09:49 | MHC.OFFVIS ---
Intake Visit Reasons: Renal Cyst Intake Note: Patient is present for RENAL CYST Urology Medication:TESTOSTERONE Antibiotic Allergy:NONE Blood Thinner:APIXABAN Senior Program Analyst Required: No Allergies No Known Allergies Allergy (Verified 03/15/25 08:47) HPI Comments Details: History of Present Illness - The patient is a 59-year-old male presenting with evaluation for renal cyst and nephrolithiasis. - 6.3 cm simple renal cyst and 1.2 cm exophytic low density lesion noted from October 2024 CT scan. - 5 mm nonobstructive renal stone identified from the same imaging. - Status post-cardioversion for atrial fibrillation without prior symptoms of AFib. - Experienced postoperative pain managed with recent cholecystectomy 10 days ago. - Cessation of high-oxalate beverages like Coke; concerns regarding iced tea intake. - No history of nephrolithiasis. Urinary Symptoms Review - History of 5 mm nonobstructive kidney stone, no current urinary symptoms reported. - No urinary frequency, incontinence, or nocturnal symptoms noted. - No dysuria or hematuria discussed. - Lifestyle changes include increased water consumption and reduced intake of high-oxalate liquids. Results - Imaging (CT Scan, October 2024): 6.3 cm simple renal cyst, 5 mm nonobstructive renal stone, 1.2 cm exophytic low density lesion mid pole left kidney. PFSH Medical History RUQ pain History of cardioversion Cardiomyopathy PAF (paroxysmal atrial fibrillation) Anxiety Leukopenia Renal calculi Gout Hypertension CANDY (obstructive sleep apnea) Hypothyroid Hypogonadism Surgical History H/O vascular surgery Hx of colonoscopy Social History Household Members: Family Housing: House Are you a primary manager intensive care unit to a significant other at home: No Do you presently have visiting nurse or other home services: No Alcohol intake: current Alcohol intake frequency: a few times a month Alcohol type: beer Comment: exercises regularly Patient Tobacco Use Status: Never used Tobacco e-Cigarette/Vaping Use: Never Used Second Hand Smoke Exposure: No Advance Directives Date on File: 11/15/21 service: No Current occupational status: employed 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 [employer] Current occupational exposures/hazards: No Cognitive needs: No Hearing needs: No Vision needs: No Review of Systems Const Denies chills and Denies fever(s) Card Reports no additional complaints and Denies syncope Resp Denies cough GI Denies abdominal pain and Denies heartburn Reports as per HPI and Denies change in libido Neuro Denies syncope Psych Denies change in libido Endo Denies change in libido Physical Exam Const General: cooperative, healthy appearing, comfortable and no acute distress Orientation/consciousness: patient oriented x3 HEENT Face and sinus: Yes normal facial exam Mouth: moist mucous membranes Neck Neck: Yes normal visual inspection, Yes full ROM and Yes trachea midline Chest Chest palpation & inspection: normal inspection of the chest Resp Effort & Inspection: normal respiratory effort, able to speak in complete sentences and no respiratory distress GI Inspection: Yes normal to inspection Back/Spine/Pelvis Cervical Spine: normal cervical lordosis Thoracic/Lumbar Spine: thoracic and lumbar spine normal to inspection Skin General skin exam: no rashes or lesions noted Neuro General: patient oriented x3, gait normal, tone normal and moves all extremities Extrem General: Yes normal to inspection and Yes capillary refill normal Assessment & Plan Assessment & Plan (1) Renal calculi: Comment: 2020-able to pass stone Code(s): N20.0 - Calculus of kidney Category: Medical (2) Renal cyst: Code(s): N28.1 - Cyst of kidney, acquired Category: Medical Plan Plan 1. 6.5 cm renal cyst and a 5 mm nonobstructive stone is planned via ultrasound in 12 months. Hydration and dietary modifications to decrease oxalate intake are advised, focusing on reducing iced tea consumption. No immediate intervention for the renal cyst or stone is necessary given their current asymptomatic status. Patient's testosterone therapy application technique is reviewed for optimal results, with blood work available on-campus per accounting systems analyst coordination.: Patient informed verbally consented to the use of an ambient scribe Discussion Notes During the visit, the findings of the renal cyst and stone were explained to the patient, including the current asymptomatic nature of these findings and the plan for follow-up monitoring through ultrasound. The patient was counseled on lifestyle modifications, particularly focusing on hydration and reducing oxalate intake to prevent exacerbation of nephrolithiasis. Additional discussions included instructions on the correct application of testosterone gel, ensuring proper technique to maximize absorption and effectiveness. The patient was informed about the option to conduct testosterone monitoring labs on campus, with convenience and coordination emphasized. Arrangements for the ultrasound follow-up were discussed and agreed upon with the patient. Patient Instructions - Schedule a follow-up ultrasound in one year to monitor the renal cyst and stone. - Maintain increased water intake and avoid high-oxalate beverages such as iced tea. - Continue using testosterone gel as prescribed, ensuring it is rubbed in until dry. - Arrange for testosterone monitoring via lab work on campus if needed, coordinating with the accounting systems analyst. - Return to clinic for any new symptoms or concerns. Patient Instructions: This note is constructed using voice recognition software. While every effort has been made to ensure accuracy last repairer helper errors may have been included. Imaging studies, laboratory and physical exam results were discussed and reviewed in detail. No major barriers to patient understanding were identified. An opportunity to ask questions regarding the treatment plan was provided. All questions were answered. The patient expressed understanding and agreement with the above treatment plan. The patient is aware they should contact our office by phone for worsening of their current condition or the appearance of new urologic symptoms. Compliance is encouraged with any medications and followup testing that is ordered. It is a privilege to participate in the urologic care of your patient. If you have any questions or concerns regarding treatment for the above conditions, or other urologic issues, please do not hesitate to contact me. The office telephone contact is [phone]. Sincerely, Dr Chavo White MD, [facility] - Urology Compassionate Specialist Care for the Genitourinary System Coding Level of Care Code New Pt Level 3 (68415) Diagnoses Renal calculi N20.0 Renal cyst N28.1
--- OUTSIDE RECORDS SUMMARY | 2025-01-24 11:07 | XMS_ITS | Patient Health Record ---
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.82) Active confirmed Encounters Encounter Location Date Provider Diagnosis [facility] [address] [place] [address] 10/26/2024 Vivek Keller Jr Plan Of Treatment Future Test Test Name Order Date COLONOSCOPY 09/04/2021 Insurance Providers Payer Name Payer Address Payer Phone Subscriber Number Group Number Insured Name Patient Relationship to Insured Coverage Start Date Coverage End Date [facility] [address] [place] [address] [id number] SANKET CROCKETT Self - patient is the insured Medical (General) History Medical History History ICD Code Hypertension Hypothyroid Gout CANDY/CPAP Hypogonadism Nephrolithiasis Surgical History Surgery Date(Month/Year) Hospitalization History Reason Date(Month/Year) Passed a kidney stone 2020
--- OUTSIDE RECORDS SUMMARY | 2025-01-24 11:07 | XMS_ITS ---
Author Organization [facility] Address [address] [place] [phone] Care Team Providers Care Campground Caretaker Name Role Phone SANKET MORILLO Primary Care Provider Vivek Garcia Jr [phone] REASON FOR VISIT looking for soon am appointment for cholelithiasis Encounters Encounter Location Date Provider Diagnosis [facility] [address] [place] [phone] 10/26/2024 Vivek Keller Jr Plan Of Treatment No Information Progress Notes * SANKET CROCKETT TDOB:1965 ( 59 yo M)Acc No.[id number]:10/26/2024 Patient:?KEIRA SANKET Christal :1965???Age:59 Y???Sex:Male Address:[address] [place] [address], [address] * true * Date:? Generated for Printi kimmy/Maria Isabel/eTransmitting on:?01/24/2025 11:06 AM EDT
== END 2025-01-24 10:35 | disposition home or self-care (01) ==
LOC: HO.HUSH 09:44
PROVIDERS: PCP Nurse Practitioner Family; Visit Provider Urology
DX: N20.0 Calculus of kidney (principal); N28.1 Cyst of kidney, acquired
CPT/HCPCS: 99203

== ENCOUNTER → 2025-01-24 09:44 | Outpatient (BNVA) | payer BC, SELFPAY | PROVIDERS: PCP Nurse Practitioner Family; Visit Provider Urology ==

== ENCOUNTER 2025-01-26 11:49 | Outpatient (REF) | payer BC, SELFPAY ==
[2025-01-26 16:05] LABS: Hematocrit 43.1 % (42.0-52.0); Hemoglobin 14.9 g/dl (14.0-18.0); Mean Corpuscular HGB Conc 34.6 g/dl (31.0-36.0); Mean Corpuscular Hemoglobin 33.6 pg (27.0-33.0); Mean Corpuscular Volume 97.3 fL (80.0-98.0); Mean Platelet Volume 10.2 fL (9.4-12.4); Platelet Count 201 X10*3/uL (160-400); Red Blood Count 4.43 X10*6/uL (4.60-5.80); Red Cell Distribution Width 13.5 % (11.0-16.0); White Blood Count 5.7 X10*3/uL (4.8-10.8)
[2025-01-26 16:38] LABS: Alanine Aminotransferase 22 U/L (0-40); Albumin Level 4.1 g/dL (3.5-5.0); Alkaline Phosphatase 66 U/L (39-117); Aspartate Amino Transferase 22 U/L (5-37); Bilirubin Direct 0.2 mg/dL (0.0-0.5); Bilirubin Total 0.5 mg/dL (0.0-1.0)
== END 2025-01-26 11:50 | disposition home or self-care (01) ==
LOC: HO.HMGCLDS 11:49
PROVIDERS: PCP Nurse Practitioner Family; Visit Provider Surgery
DX: K80.20 Calculus of gallbladder without cholecystitis without obstruction (principal)
CPT/HCPCS: 36415; 80076; 85027

== ENCOUNTER 2025-01-26 11:49 | Outpatient (AMB) | payer BC, SELFPAY ==
[2025-01-26 11:54] VITALS: BP 135/61; PULSE 52; BMI 39.3
--- NOTE | 2025-01-26 11:54 | MHC.OFFVIS ---
Vital Signs 01/26/25 11:54 Height 5 ft 11 in Weight 282 lb BMI 39.3 BP 135/61 Blood Pressure Location Rt brachial Position Sitting Pulse 52 Intake Visit Reasons: S/P lap eric Intake Note: Patient here s/p Laparoscopic cholecystectomy, extensive lysis of adhesions. Reports incision healing well. OLGA drain removed last week. Patient c/o: tenderness along surgical area. Taking rx pain meds as needed. Surgery: 01-13-2025 Button Sawyer Required: No Accompanied by: spouse Jimena Orlando Allergies No Known Allergies Allergy (Verified 01/26/25 11:57) HPI HPI S/P lap eric: Details: He is here for a postop visit after laparoscopic cholecystectomy last 01/13/2025. I had seen him last week and removed the OLGA drain He had been doing well but says he has had this done ache the upper abdomen for the past 5 days or so. He denies any fever or chills. He denies any nausea or vomiting. He has a good oral intake. He feels well overall [facility] Medical History History of cardioversion Cardiomyopathy PAF (paroxysmal atrial fibrillation) Anxiety Leukopenia Renal calculi Gout Hypertension CANDY (obstructive sleep apnea) Hypothyroid Hypogonadism Surgical History H/O vascular surgery Hx of colonoscopy Social History Household Members: Family Housing: House Are you a primary home care assistant to a significant other at home: No Do you presently have visiting nurse or other home services: No Alcohol intake: current Alcohol intake frequency: a few times a month Alcohol type: beer Comment: exercises regularly Patient Tobacco Use Status: Never used Tobacco e-Cigarette/Vaping Use: Never Used Second Hand Smoke Exposure: No Advance Directives Date on File: 11/15/21 service: No Current occupational status: employed 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 [employer] Current occupational exposures/hazards: No Cognitive needs: No Hearing needs: No Vision needs: No Review of Systems Const Denies chills and Denies fever(s) Card Denies chest pain GI Denies nausea and Denies vomiting Physical Exam Vital Signs: Last Vital Signs Pulse 52 01/26/25 11:54 BP 135/61 01/26/25 11:54 BMI result Body Mass Index 39.3 Const Other: Looks well General: comfortable and no acute distress Eyes Other: Anicteric sclerae GI Other: All incisions are well healed Palpation (GI): Soft to palpation, not firm, nontender and no guarding Assessment & Plan Assessment & Plan (1) Gallstones: Code(s): K80.20 - Calculus of gallbladder without cholecystitis without obstruction Category: Medical Plan: Status post laparoscopic cholecystectomy. He clinically looks well. However, he has had this vague low intensity ache on the upper abdomen for about 5 days. I am going to order for a liver function test to check his bilirubin. He has anicteric sclerae otherwise He seems to be doing well overall. I will call him about the results of his LFTs. His was with him during the visit I also advised him to stay on a low-fat diet for now. Orders: Orders Liver Panel Today K80.20 - Calculus of gallbladder without cholecystitis without obstruction Coding Level of Care Code Global (86255) Diagnoses Gallstones K80.20
== END 2025-01-26 12:12 | disposition home or self-care (01) ==
LOC: HO.HGS 11:49
PROVIDERS: PCP Nurse Practitioner Family; Visit Provider Surgery
DX: K80.20 Calculus of gallbladder without cholecystitis without obstruction (principal)
CPT/HCPCS: 99024

== ENCOUNTER 2025-01-30 10:49 | Outpatient (AMB) | payer BC, SELFPAY ==
--- NOTE | 2025-01-30 11:00 | MHC.OFFVIS ---
Vital Signs 01/30/25 11:02 Height 5 ft 11 in Weight 273 lb 5.971 oz BMI 38.1 BP 120/70 Blood Pressure Location Lt brachial Position Sitting Pulse 52 Pulse Source Monitor Intake Visit Reasons: r/s 01/18-f/up echo/ct Intake Note: f/up-echo/ ct Insurance Underwriter Required: No Accompanied by: Self / Same As Patient Allergies No Known Allergies Allergy (Verified 01/26/25 11:57) Medication List - Last Reconciled 01/30/25 by Madhav Cm MD amiodarone 200 mg PO QAM apixaban (Eliquis) 5 mg PO BID furosemide (Lasix) 20 mg PO QAM levothyroxine 175 mcg PO QAM losartan 50 mg See Protocol PO QAM metoprolol succinate ER (Toprol XL) 25 mg PO QAM oxycodone-acetaminophen 5-325 mg 1 tab PO Q6H PRN testosterone 10 mg/0.5 gram /actuation 20 mg topical QAM HPI Comments Details: 59-year-old gentleman who is here for follow-up. He was seen in the hospital in September when he presented for outpatient procedure and was noticed to be in AFib with RVR. He was admitted and rate controlled initially but echocardiography showed EF of 30 35%. After discussion he underwent BRICE cardioversion. He was loaded with amiodarone and was sent home with amiodarone which he is taking 200 mg daily at this point along with Toprol-XL. He has noticed his heart rate to be slow at times in 40s to 50s. Since discharge he has done significantly well and has made significant lifestyle changes including diet and exercise. He has stopped drinking alcohol and caffeine. He is swimming 45 minutes every day. No exertional symptoms. He has gallstones and has been experiencing some abdominal pains and occasionally while getting abdominal pain he gets some chest pains. These symptoms are clearly linked with abdominal pain and during exercise like swimming he does not get any chest discomfort. He is here to discuss further management of atrial fibrillation as well as whether he can get surgery for gallstones. 01/30/2025: Mariusz is here for follow-up. Repeat echocardiography has shown resolution of LV dysfunction and is EF is back to normal. He is on amiodarone for rhythm control strategy and continues to be in sinus rhythm at this point. Blood pressure is well controlled. He has seen in electrophysiology at [facility] and will be considering ablation in April or May. He had gallstones and underwent surgery and is recovering from that. He continues to have some right-sided upper abdominal and lower chest pain and back pain since the surgery. He has followed with general surgery and had blood workup done to rule out any infections. He is denying any fevers or chills at this point. Compliant with medications. Denying any other symptoms currently. [facility] Medical History History of cardioversion Cardiomyopathy PAF (paroxysmal atrial fibrillation) Anxiety Leukopenia Renal calculi Gout Hypertension CANDY (obstructive sleep apnea) Hypothyroid Hypogonadism Surgical History H/O vascular surgery Hx of colonoscopy Social History Household Members: Family Housing: House Are you a primary child care worker to a significant other at home: No Do you presently have visiting nurse or other home services: No Alcohol intake: current Alcohol intake frequency: a few times a month Alcohol type: beer Comment: exercises regularly Patient Tobacco Use Status: Never used Tobacco e-Cigarette/Vaping Use: Never Used Second Hand Smoke Exposure: No Advance Directives Date on File: 11/15/21 service: No Current occupational status: employed 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 Current occupational exposures/hazards: No Cognitive needs: No Hearing needs: No Vision needs: No Review of Systems Const Denies chills, Denies fatigue, Denies fever(s), Denies frequent falls, Denies weakness, Denies weight gain and Denies weight loss ENT Denies dizziness Card Denies chest pain, Denies leg edema, Denies lightheadedness, Denies palpitations, Denies dyspnea and Denies dyspnea on exertion Resp Denies cough, Denies dyspnea and Denies dyspnea on exertion GI Denies hematochezia Musc Denies abnormal gait, Denies muscle weakness, Denies numbness, Denies radiating pain into limb and Denies tingling Neuro Denies abnormal gait, Denies dizziness, Denies frequent falls, Denies numbness, Denies tingling and Denies weakness Endo Denies fatigue and Denies palpitations Physical Exam Vital Signs: Last Vital Signs Pulse 52 01/30/25 11:02 BP 120/70 01/30/25 11:02 BMI result Body Mass Index 38.1 GENERAL APPEARANCE: in no acute distress, pleasant. NECK: no carotid bruit, no jugular venous distention. SKIN: no suspicious lesions, warm and dry. HEART: no murmurs, regular rate and rhythm. Bradycardic. LUNGS: clear to auscultation bilaterally. ABDOMEN: soft, nontender. EXTREMITIES: no edema. PERIPHERAL PULSES: equal. NEUROLOGIC: No gross deficits, AAO X 3 Office Procedures EKG Details: Sinus bradycardia 52 beats per minute, left axis deviation, can not rule out inferior infarct, poor R-wave progression, QTC 420 milliseconds. [id number], Complete Assessment & Plan Assessment & Plan (1) PAF (paroxysmal atrial fibrillation): Code(s): I48.0 - Paroxysmal atrial fibrillation Category: Medical (2) Cardiomyopathy: Code(s): I42.9 - Cardiomyopathy, unspecified Category: Medical Qualifiers: Cardiomyopathy type: unspecified Qualified Code(s): I42.9 - Cardiomyopathy, unspecified (3) Abnormal ECG: Code(s): R94.31 - Abnormal electrocardiogram [ECG] [EKG] Category: Medical Plan Pleasant 59 year gentleman who is here for follow-up. He was seen per cardiomyopathy in the setting of atrial fibrillation and alcohol use. He was cardioverted and started on amiodarone. He has stopped drinking completely. Subsequent ECHO has shown normalization of LV function. He is doing well clinically and has no exertional issues currently. He is recovering from cholecystectomy and has right-sided abdominal and back pain ongoing since the surgery. He is following with General surgery for this. His LFTs were normal recently. He did not have any TSH checked since November 2024. He was also due to get a stress test and actually came for a stress test when he was noticed to be in AFib with RVR. He is asking whether the stress test is required. I think overall he is doing quite well. I think we continue the amiodarone till he gets the ablation done. I will repeat TSH in 3 months along with liver panel. As his abdominal pain improves we will arrange a stress Mibi for him because his EKG has inferior Q-waves and 15% of time patient's with coronary disease developed atrial fibrillation. Although in his case alcohol was a bigger trigger. He wishes to undergo ablation in few months after he attends wedding in [place]. I think that is reasonable and we will continue to monitor him closely while he is on amiodarone. Thank you for allowing me to participate in the care of your patient. Please feel free to contact me if you have any questions. Orders: Orders TSH reflex Free T4 3 Months I48.0 - Paroxysmal atrial fibrillation Liver Panel 3 Months I48.0 - Paroxysmal atrial fibrillation Coding Level of Care Code Est Pt Level 5 (48323) Diagnoses PAF (paroxysmal atrial fibrillation) I48.0 Cardiomyopathy I42.9 Cardiomyopathy type: unspecified Abnormal ECG R94.31 CPT Codes EKG - CPT: 42276-[id number], Complete ([id number])
[2025-01-30 11:02] VITALS: BP 120/70; PULSE 52; BMI 38.1
== END 2025-01-30 12:20 | disposition home or self-care (01) ==
LOC: HO.HCS 10:49
PROVIDERS: PCP Nurse Practitioner Family; Visit Provider Internal Medicine Cardiovascular Disease
DX: I48.0 Paroxysmal atrial fibrillation (principal); I42.9 Cardiomyopathy, unspecified; R94.31 Abnormal electrocardiogram [ECG] [EKG]
CPT/HCPCS: 93010; 99214

== ENCOUNTER → 2025-01-30 10:49 | Outpatient (BNVA) | payer BC, SELFPAY | PROVIDERS: PCP Nurse Practitioner Family; Visit Provider Internal Medicine Cardiovascular Disease | DX: I48.0 Paroxysmal atrial fibrillation (principal); I42.9 Cardiomyopathy, unspecified; R94.31 Abnormal electrocardiogram [ECG] [EKG]; R00.1 Bradycardia, unspecified | CPT/HCPCS: 93005 ==

== ENCOUNTER 2025-02-23 08:14 | Outpatient (REF) | payer BC, SELFPAY ==
[2025-02-23 10:53] LABS: Blood Urea Nitrogen 17 mg/dL (9-16); Estimated Glomerular Filt Rate > 60
== END 2025-02-23 08:15 | disposition home or self-care (01) ==
LOC: HO.HMGCLDS 08:14
PROVIDERS: PCP Nurse Practitioner Family; Visit Provider Surgery
DX: R10.11 Right upper quadrant pain (principal)
CPT/HCPCS: 36415; 82565; 84520

== ENCOUNTER 2025-02-24 09:47 | Outpatient (REF) | payer BC, SELFPAY ==
--- NOTE | ~2025-02-24 | CT_ITS ---
EXAMINATION: CT ABDOMEN AND PELVIS WITH CONTRAST CLINICAL INFORMATION: Right upper quadrant pain. History of cholecystectomy 6 weeks ago. COMPARISON: CT abdomen and pelvis without contrast 10/21/2024 TECHNIQUE: Multidetector volumetric images were obtained from the superior aspect of the liver through the pubic symphysis following administration 85 mL of Omnipaque 350 intravenous contrast. Sagittal and coronal reformatted images were obtained on the technologist's workstation. Oral contrast: No This CT examination was performed using dose optimization techniques as appropriate, variously including the following: *Automated exposure control *Adjustment of mA and/or kV according to patient size (this includes techniques or standardized protocols for targeted exams where dose is matched to indication/reason for exam; i.e. extremities or head) *Use of iterative reconstruction technique DLP: 859. FINDINGS: LUNG BASES: The lung bases are clear. The heart size is normal. LIVER, GALLBLADDER, AND BILIARY TREE: The liver is normal size, shape and attenuation. No focal lesion or intrahepatic ductal dilatation seen. All bladder has been surgically removed with postsurgical changes in the gallbladder fossa. Tiny 4 mm mm radiopaque density seen in the gallbladder fossa question calcification versus tiny stone. The CBD is normal caliber and not visible. No perihepatic fluid collection. PANCREAS: Unremarkable. SPLEEN: Unremarkable. ADRENAL GLANDS: Unremarkable. KIDNEYS AND URETERS: The kidneys are normal in size, shape, and attenuation. There is a 4 mm radiopaque calculi upper pole right kidney and moderate size 6.9 cm cyst mid to lower pole right kidney. No radiopaque calculi left kidney. A small partially exophytic 2 7 cm cyst mid pole left kidney. There is no hydronephrosis on either side. Moderate size simple cyst mid pole left kidney BLADDER: Unremarkable. GASTROINTESTINAL TRACT: There is scattered stool and gas seen throughout the colon without distention. The small bowel loops are normal caliber. Appendix is normal caliber. No inflammatory process, free air or free fluid seen. ABDOMINAL WALL: No significant hernia is appreciated. LYMPH NODES: Normal. VASCULAR: Unremarkable. PELVIC VISCERA: The prostate gland is normal with a central gland calcification. No abnormal pelvic or inguinal lymph nodes. OSSEOUS STRUCTURES: No aggressive lytic or sclerotic process seen. There is grade 1 anterolisthesis L4 over L5. There is moderate bilateral L4-[address]/CT abdomen pelvis w IV con IMPRESSION: There is interval cholecystectomy with surgical ruby in the right gallbladder fossa. There is 4 mm radiopaque density right upper quadrant question residual stone. There is no CBD dilation or obstruction. Bilateral renal cyst. Nonobstructive 4 mm radiopaque calculi mid pole right kidney without caliectasis Fleischner guidelines were followed. Electronically signed by: Antelmo Bennett MD 02/24/2025 11:42 AM EDT
[2025-02-24] MEDS: iohexoL 350 MG/ML 100 ML INFUS..BTL IV (10:27)
== END 2025-02-24 09:48 | disposition home or self-care (01) ==
LOC: HO.CT 09:47
PROVIDERS: PCP Nurse Practitioner Family; Visit Provider Surgery
DX: R10.11 Right upper quadrant pain (principal)
CPT/HCPCS: 74177; Q9967

== ENCOUNTER → 2025-02-24 09:52 | Outpatient (BNV) | payer BC, SELFPAY | PROVIDERS: PCP Nurse Practitioner Family; Visit Provider Radiology Diagnostic Radiology | DX: N20.0 Calculus of kidney (principal) | CPT/HCPCS: 74177 ==

== ENCOUNTER 2025-03-15 08:39 | Outpatient (AMB) | payer BC, SELFPAY ==
--- NOTE | 2025-03-15 08:42 | MHC.OFFVIS ---
Vital Signs 03/15/25 08:47 Height 5 ft 11 in Weight 290 lb BMI 40.4 BP 148/71 H Blood Pressure Location Rt brachial Position Sitting Pulse 55 Intake Visit Reasons: ct scan results Intake Note: Patient scheduled today's visit to discuss abdomen pelvis CT from 02-24-2025. Patient c/o: RUQ pain. Taking rx pain meds as needed. Procedure: Laparoscopic cholecystectomy, extensive lysis of adhesions/ 01-13-2025 Manager Educational Required: No Accompanied by: Self / Same As Patient Allergies No Known Allergies Allergy (Verified 03/15/25 08:47) HPI HPI ct scan results: Details: He is here for another follow-up after laparoscopic cholecystectomy last December,. I had sent him for a CAT scan be view of his periodic right upper quadrant pain even after the surgery. He does state that his pain has improved significantly in the past 2 weeks. He still feels some sharp stabbing pain every now and then but he says this is much better. He has good oral intake. PFSH Medical History RUQ pain History of cardioversion Cardiomyopathy PAF (paroxysmal atrial fibrillation) Anxiety Leukopenia Renal calculi Gout Hypertension CANDY (obstructive sleep apnea) Hypothyroid Hypogonadism Surgical History H/O vascular surgery Hx of colonoscopy Social History Household Members: Family Housing: House Are you a primary acute care nurse practitioner to a significant other at home: No Do you presently have visiting nurse or other home services: No Alcohol intake: current Alcohol intake frequency: a few times a month Alcohol type: beer Comment: exercises regularly Patient Tobacco Use Status: Never used Tobacco e-Cigarette/Vaping Use: Never Used Second Hand Smoke Exposure: No Advance Directives Date on File: 11/15/21 service: No Current occupational status: employed 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 Current occupational exposures/hazards: No Cognitive needs: No Hearing needs: No Vision needs: No Review of Systems Const Denies chills and Denies fever(s) Card Denies chest pain, Denies dyspnea and Denies dyspnea on exertion Resp Denies cough, Denies dyspnea and Denies dyspnea on exertion GI Denies hematochezia and Denies change in bowel habits Denies difficulty urinating Musc Denies limited range of motion Neuro Denies focal weakness and Denies convulsions Psych Denies depression and Denies mood swings Physical Exam Vital Signs: Last Vital Signs Pulse 55 03/15/25 08:47 BP 148/71 H 03/15/25 08:47 BMI result Body Mass Index 40.4 Const Other: Appears obese General: comfortable and no acute distress Resp Effort & Inspection: normal respiratory effort GI Palpation (GI): Soft to palpation, not firm, nontender and no guarding Assessment & Plan Assessment & Plan (1) RUQ pain: Code(s): R10.11 - Right upper quadrant pain Category: Medical Plan: Status post laparoscopic cholecystectomy last December,. I had sent her CAT scan in view of his lingering periodic right upper quadrant pain postop. There is no inflammatory process seen. There were maybe a small dropped stone in the right upper quadrant, 4 mm in size but there were no inflammatory changes surrounding this. I explained to him that his pain is likely secondary to the extensive lysis of adhesions from the severe fibrotic changes surrounding his gallbladder at that time with subsequent scar formation after tissue trauma He does feel much better now and has noticed improvement with time I assured him above his CAT scan findings as well as his blood test. I will see him again in the office in about a month. He does state that he he would like some tramadol for his episodes of pain at night so that he can sleep better. Coding Level of Care Code Global (73506) Diagnoses RUQ pain R10.11
[2025-03-15 08:47] VITALS: BP 148/71; PULSE 55; BMI 40.4
--- OUTSIDE RECORDS SUMMARY | 2025-03-15 08:56 | XMS_ITS | Continuity of Care Document ---
Author Organization [facility] Address [address] [place] [id number]- Care Team Providers Care Case Hardener Name Role Phone Sanket Fish NP Primary Care Physician [place]counter [facility] [place]/07[place]25 - 03/09/25 [facility] [address] [place] [id number]- Attending Physician: Georgia Younger Admitting Physician: Georgia Younger Referring Physician: Georgia Younger Encounter Type: Triage Allergies, Adverse Reactions, Alerts No Known Allergies Medications amiodarone 200 mg oral tablet Refills 0, Maintenance, 12/15/24 8:51:00 AM EST, Partial fill upon patient request if the prescription is for a schedule II opioid drug. Start Date: 12/15/24 Status: Ordered Repeat number: 1 busPIRone 10 mg oral tablet Refills 0, Maintenance, 12/15/24 8:51:00 AM EST, Partial fill upon patient request if the prescription is for a schedule II opioid drug. Start Date: 12/15/24 Status: Ordered Repeat number: 1 Eliquis 5 mg oral tablet 0 Refills, Maintenance, 12/15/24 8:51:00 AM EST, Partial fill upon patient request if the prescription is for a schedule II opioid drug. Start Date: 12/15/24 Status: Ordered Repeat number: 1 furosemide 20 mg oral tablet Refills 0, Maintenance, 12/15/24 8:50:00 AM EST, Partial fill upon patient request if the prescription is for a schedule II opioid drug. Start Date: 12/15/24 Status: Ordered Repeat number: 1 hyoscyamine 0.375 mg oral tablet, extended release 0 Refills, Maintenance, 12/15/24 8:51:00 AM EST, Partial fill upon patient request if the prescription is for a schedule II opioid drug. Start Date: 12/15/24 Status: Ordered Repeat number: 1 levothyroxine 175 mcg (0.175 mg) oral tablet 0 Refills, Maintenance, 12/15/24 8:51:00 AM EST, Partial fill upon patient request if the prescription is for a schedule II opioid drug. Start Date: 12/15/24 Status: Ordered Repeat number: 1 losartan 50 mg oral tablet 0 Refills, Maintenance, 12/15/24 8:51:00 AM EST, Partial fill upon patient request if the prescription is for a schedule II opioid drug. Start Date: 12/15/24 Status: Ordered Repeat number: 1 Metoprolol Succinate ER 25 mg oral tablet, extended release Refills 0, Maintenance, 12/15/24 8:51:00 AM EST, Partial fill upon patient request if the prescription is for a schedule II opioid drug. Start Date: 12/15/24 Status: Ordered Repeat number: 1 testosterone 10 mg/actuation transdermal gel 0 Refills, Maintenance, 12/15/24 8:51:00 AM EST, Partial fill upon patient request if the prescription is for a schedule II opioid drug. Start Date: 12/15/24 Status: Ordered Repeat number: 1 Patient Care team information Care Team Personnel Name: Sanket Fish NP Position: Reference Physician Member Role: PCP Address: [address] [place] [address] Telecom: Care Team Related Persons Name: RUBIO CROCKETT Insurance Providers Guarantor name: SANKET CROCKETT Health Plan Information #: 1 Payer: [employer] Member Number: NA Policy Number: NA Group Number: NA
== END 2025-03-15 09:00 | disposition home or self-care (01) ==
PROVIDERS: PCP Nurse Practitioner Family; Visit Provider Surgery
DX: R10.11 Right upper quadrant pain (principal)
CPT/HCPCS: 99024

== ENCOUNTER 2025-04-15 17:08 | Emergency (ER) | payer BC, SELFPAY ==
--- NOTE | ~2025-04-15 | CT_ITS ---
CLINICAL HISTORY: abd pain CT abdomen and pelvis with contrast Comparison: CT - CT ABDOMEN PELVIS W IV CON - 04/15/25 18:32 EDT Findings: No consolidation or effusion. Small nonobstructive calculus within the right kidney. Multiple kidney cysts. Remaining abdominal organs are unremarkable. Prior cholecystectomy. Extensive fluid distention of small bowel. Small bowel is dilated with segments measuring up to 4.6 cm in diameter. There is no focal transition point, but the distal ileum is relatively decompressed. There is mild edema of portions of the small bowel mesentery. There is fluid within the proximal colon. There is no diverticulitis or colitis. No pneumatosis or portal venous gas. Unremarkable urinary bladder and prostate gland. Normal appendix. The bones are intact. IMPRESSION: 1. There is fluid distention and mild dilatation of small bowel. No focal transition point to suggest an obstructive process. Consider gastroenteritis. A developing or partial small bowel obstruction is not excluded. 2. There is a small amount of pelvic free fluid. 3. Small nonobstructive calculus within the right kidney. This document has been electronically signed by: Hanh Braswell MD on 04/15/2025 19:44:08
[2025-04-15 17:12] VITALS: BP 131/78; PULSE 60; RESP 16; TEMP 36.6; O2SAT 95; BMI 40.3
--- NOTE | 2025-04-15 17:13 | ED.GENADULT ---
HPI - General Adult General Chief complaint: Nausea/Vomiting/Diarrhea Stated complaint: Dehrdration/food poisoning? Vomiting/diarrhea Time Seen by Provider: 04/15/25 17:27 Related Data Home Medications ?Medication ?Instructions ?Recorded ?Confirmed levothyroxine 175 mcg tablet 175 mcg PO QAM 06/14/21 01/30/25 testosterone 10 mg/0.5 20 mg topical QAM 06/14/21 01/30/25 gram/actuation transdermal gel pump furosemide 20 mg tablet (Lasix) 20 mg PO QAM 01/04/25 01/30/25 losartan 50 mg tablet 50 mg PO QAM 01/04/25 01/30/25 Previous Rx's ?Medication ?Instructions ?Recorded apixaban 5 mg tablet (Eliquis) 5 mg PO BID #180 tabs 01/03/25 oxycodone-acetaminophen 5 mg-325 1 tab PO Q6H PRN pain #30 tabs 01/13/25 mg tablet omeprazole magnesium 20 mg 20 mg PO BID #60 tabs 02/20/25 tablet,delayed release (Prilosec OTC) hydrocodone 5 mg-acetaminophen 325 1 tab PO TID PRN pain #25 tabs 02/24/25 mg tablet tramadol 50 mg tablet 50 mg PO BID PRN pain #10 tabs 03/15/25 amiodarone 200 mg tablet 200 mg PO QAM #90 tabs 03/22/25 metoprolol succinate 25 mg 25 mg PO QAM #90 tabs 03/22/25 tablet,extended release 24 hr (Toprol XL) ondansetron 4 mg disintegrating 4 mg PO TID PRN nausea and 04/15/25 tablet vomiting 5 days #10 tabs Allergies Allergy/AdvReac Type Severity Reaction Status Date / Time No Known Allergies Allergy Verified 04/15/25 17:13 [facility] Past Medical History Medical History RUQ pain History of cardioversion Cardiomyopathy PAF (paroxysmal atrial fibrillation) Anxiety Leukopenia Renal calculi Gout Hypertension CANDY (obstructive sleep apnea) Hypothyroid Hypogonadism Surgical History H/O vascular surgery Hx of colonoscopy Social History Social History Household Members: Family Housing: House Are you a primary care management assistant to a significant other at home: No Do you presently have visiting nurse or other home services: No Alcohol intake: current Alcohol intake frequency: a few times a month Alcohol type: beer Comment: exercises regularly Patient Tobacco Use Status: Never used Tobacco Smoked in Last 30 Days: No e-Cigarette/Vaping Use: Never Used Second Hand Smoke Exposure: No Use of substances other than those prescribed or required for medical reasons: No Advance Directives: Yes Advance Directives on File: Yes Advance Directives Date on File: 11/15/21 Do you have a plan to hurt others: No Plan service: No Current occupational status: employed Current occupation: [id number] Current occupational exposures/hazards: No Cognitive needs: No Hearing needs: No Vision needs: No Physical Exam ED Vital Signs: Vital Signs - 24 hr 04/15/25 17:12 04/15/25 18:00 04/15/25 19:50 Temperature 97.9 F 98.0 F 97.5 F Pulse Rate 60 52 52 Respiratory Rate 16 16 16 Blood Pressure 131/78 117/50 L 96/47 L Pulse Oximetry 95 92 96 Oxygen Delivery Method Room Air Room Air Room Air BMI result Body Mass Index 40.3 Course Course Course Narrative: Fabiana Sorenson APRN This is a rapid medical exam. Deferred additional HPI, ROS, PE to primary provider. 60 yo male with history of afib on AC therapy here with complaints of diarrhea since Thursday, vomiting since last evening, abdominal cramping today. Will obtain labs, UA, stool studies, viral testing VSS Medications Administered Discontinued Medications Generic Name Dose Route Start Last Admin Trade Name Xander PRN Reason Stop Dose Admin Sodium Chloride 1,000 mls @ 999 mls/hr 04/15/25 18:00 04/15/25 20:31 Ns IV 04/15/25 19:00 Infused .Q1H1M SINTIA Infusion Sodium Chloride 1,000 mls @ 999 mls/hr 04/15/25 18:00 04/15/25 20:31 Ns IV 04/15/25 19:00 Infused .Q1H1M SINTIA Infusion Iohexol 100 ml 04/15/25 18:38 04/15/25 18:38 Iohexol 350 Mg/Ml 100 Ml Infus..Btl IV 04/15/25 18:39 100 ml ONCE ONE Administration Ketorolac Tromethamine 15 mg 04/15/25 17:51 04/15/25 18:06 Ketorolac Tromethamine 15 Mg/Ml Vial IVPUSH 04/15/25 17:52 15 mg ONCE ONE Administration Ondansetron HCl 4 mg 04/15/25 17:51 04/15/25 18:05 Ondansetron Hcl 4 Mg/2 Ml Vial IVPUSH 04/15/25 17:52 4 mg ONCE ONE Administration Medical Decision Making Lab Data 04/15/25 17:22 04/15/25 17:22 Labs: Lab Results 04/15/25 04/15/25 Range/Units 17:22 17:39 WBC 8.5 (4.8-10.8) X10*3/uL RBC 4.94 (4.60-5.80) X10*6/uL Hgb 16.6 (14.0-18.0) g/dl Hct 46.2 (42.0-52.0) % MCV 93.5 (80.0-98.0) fL MCH 33.6 H (27.0-33.0) pg MCHC 35.9 (31.0-36.0) g/dl RDW 12.8 (11.0-16.0) % Plt Count 205 (160-400) X10*3/uL MPV 9.5 (9.4-12.4) fL Immature Gran % (Auto) 0.2 (0.0-0.4) % Neut % (Auto) 82.5 H (45-73) % Lymph % (Auto) 8.4 L (20-40) % [place] % (Auto) 8.2 (2-11) % Eos % (Auto) 0.6 (0-4) % Baso % (Auto) 0.1 (0-2) % Lymph # (Auto) 0.7 L (1.2-4.9) X10*3/uL [place] # (Auto) 0.7 (0.1-1.2) X10*3/uL Eos # (Auto) 0.1 (0.0-0.4) X10*3/uL Baso # (Auto) 0.0 (0.0-0.2) X10*3/uL Abs Immat Gran (auto) 0.02 (0.00-0.03) X10*3/uL Absolute Neuts (auto) 7.0 (2.0-8.3) x10*3/uL Absolute Nucleated RBC 0.000 (0.0-0.012) X10*3/uL Nucleated RBC % (auto) 0.0 (0.0-0.2) /100WBC Sodium 137 (135-145) mmol/L Potassium 4.0 (3.3-5.1) mmol/L Chloride 100 (96-108) mmol/L Carbon Dioxide 25 (22-29) mmol/L Anion Gap 16 (12-20) BUN 16 (9-16) mg/dL Creatinine 0.97 (0.5-1.4) mg/dL Estim Creat Clear Calc 107.1 Estimated GFR > 60 Random Glucose 113 (60-115) mg/dL Calcium 8.7 (8.4-10.2) mg/dL Total Bilirubin 1.1 H (0.0-1.0) mg/dL Direct Bilirubin 0.4 (0.0-0.5) mg/dL AST 32 (5-37) U/L ALT 36 (0-40) U/L Alkaline Phosphatase 81 (39-117) U/L Total Protein 7.7 (6.5-8.0) g/dL Albumin 4.8 (3.5-5.0) g/dL Urine Color Dark Yellow Urine Appearance Clear Urine pH 5.5 (5.0-9.0) Ur Specific [place] 1.020 (1.005-1.025) Urine Protein Trace (Neg-Trace) mg/dL Urine Glucose (UA) Negative (Negative) mg/dL Urine Ketones 15 (Negative) mg/dL Urine Blood Negative (Negative) Urine Nitrite Negative (Negative) Ur Leukocyte Esterase Negative (Negative) Influenza Type A (PCR) NEGATIVE (Negative) Influenza Type B (PCR) NEGATIVE (Negative) RSV RNA Qual (PCR) NEGATIVE (Negative) SARS-CoV-2 RNA (RT-PCR) NEGATIVE (Negative) Discharge Plan Discharge Clinical Impression: Gastroenteritis Patient Disposition: Home, Self-Care Instructions: Acute Nausea and Vomiting (DC), Acute Diarrhea (ED) Additional Instructions: Clear liquids for the next 24 hours. Small risk of bowel obstruction exists. Worsened nausea vomiting belly pain come back Prescriptions: New ondansetron 4 mg tablet,disintegrating 4 mg PO TID PRN (Reason: nausea and vomiting) 5 Days Qty: 10 0RF No Action Eliquis 5 mg tablet 5 mg PO BID Qty: 180 3RF omeprazole magnesium [Prilosec OTC] 20 mg tablet,delayed release (DR/EC) 20 mg PO BID Qty: 60 0RF hydrocodone-acetaminophen 5-325 mg tablet 1 tab PO TID PRN (Reason: pain) Qty: 25 0RF Rx Instructions: Partial Fill upon patient request. amiodarone 200 mg tablet 200 mg PO QAM Qty: 90 3RF metoprolol succinate [Toprol XL] 25 mg tablet extended release 24 hr 25 mg PO QAM Qty: 90 3RF levothyroxine 175 mcg tablet 175 mcg PO QAM testosterone 10 mg/0.5 gram /actuation gel in metered-dose pump 20 mg topical QAM losartan 50 mg tablet 50 mg PO QAM Protocol: Hold for SBP< HOLD for SBP < : 90 furosemide [Lasix] 20 mg tablet 20 mg PO QAM oxycodone-acetaminophen 5-325 mg tablet 1 tab PO Q6H PRN (Reason: pain) Qty: 30 0RF Rx Instructions: Partial Fill upon patient request. tramadol 50 mg tablet 50 mg PO BID PRN (Reason: pain) Qty: 10 0RF Referrals: Mariusz Fish, SHINGLE INSPECTOR-BC [Primary Care Provider, Internal Medicine] - 04/17/25 Print Language: Romanian
[2025-04-15 17:27] LABS: MANUAL DIFF FLAG NO
[2025-04-15 17:28] LABS: Basophils Percent Auto 0.1 % (0-2); Eosinophils Absolute Auto 0.1 X10*3/uL (0.0-0.4); Eosinophils Percent Auto 0.6 % (0-4); Hematocrit 46.2 % (42.0-52.0); Hemoglobin 16.6 g/dl (14.0-18.0); Imm Gran Abs Auto 0.02 X10*3/uL (0.00-0.03); Imm Gran Pct Auto 0.2 % (0.0-0.4); Lymphocytes Absolute Auto 0.7 X10*3/uL (1.2-4.9); Lymphocytes Percent Auto 8.4 % (20-40); Mean Corpuscular HGB Conc 35.9 g/dl (31.0-36.0); Mean Corpuscular Hemoglobin 33.6 pg (27.0-33.0); Mean Corpuscular Volume 93.5 fL (80.0-98.0); Mean Platelet Volume 9.5 fL (9.4-12.4); Monocytes Absolute Auto 0.7 X10*3/uL (0.1-1.2); Monocytes Percent Auto 8.2 % (2-11); Neutrophils Percent Auto 82.5 % (45-73); Platelet Count 205 X10*3/uL (160-400); Red Blood Count 4.94 X10*6/uL (4.60-5.80); Red Cell Distribution Width 12.8 % (11.0-16.0); White Blood Count 8.5 X10*3/uL (4.8-10.8)
[2025-04-15 17:46] LABS: Alanine Aminotransferase 36 U/L (0-40); Albumin Level 4.8 g/dL (3.5-5.0); Alkaline Phosphatase 81 U/L (39-117); Anion Gap 16 (12-20); Aspartate Amino Transferase 32 U/L (5-37); Bilirubin Direct 0.4 mg/dL (0.0-0.5); Bilirubin Total 1.1 mg/dL (0.0-1.0); Blood Urea Nitrogen 16 mg/dL (9-16); Calcium 8.7 mg/dL (8.4-10.2); Carbon Dioxide 25 mmol/L (22-29); Chloride 100 mmol/L (96-108); Creatinine Clr Calc Pharmacy 107.1; Estimated Glomerular Filt Rate > 60; Glucose Random 113 mg/dL (60-115); Sodium 137 mmol/L (135-145); Total Protein 7.7 g/dL (6.5-8.0)
[2025-04-15 17:46] LABS: Appearance Urine Clear; Color Urine Dark Yellow; Glucose Urine UA Negative (Negative); Leukocyte Esterase Urine Negative (Negative); Nitrite Urine Negative (Negative); PH 5.5 (5.0-9.0); Urine Blood Negative (Negative); Urine Ketones 15 mg/dL (Negative); Urine Protein Trace mg/dL (Neg-Trace)
--- NOTE | 2025-04-15 17:52 | ED.NAVMDI ---
HPI - Nausea/Vomiting/Diarrhea General Chief complaint: Nausea/Vomiting/Diarrhea Stated complaint: Dehrdration/food poisoning? Vomiting/diarrhea Time Seen by Provider: 04/15/25 17:27 History of Present Illness HPI Narrative: Patient is a 60-year-old male with a history of cholecystectomy done in the past. History of antibiotics just finished yesterday. He was taking a for dental infection history of AFib he is on Eliquis presented today with having nausea vomiting diarrhea for the last 3 days vomiting mostly consistent with food. Diarrhea is yellow green in color there was no blood. Patient denies any travel history. He is from home. Related Data Home Medications ?Medication ?Instructions ?Recorded ?Confirmed levothyroxine 175 mcg tablet 175 mcg PO QAM 06/14/21 01/30/25 testosterone 10 mg/0.5 20 mg topical QAM 06/14/21 01/30/25 gram/actuation transdermal gel pump furosemide 20 mg tablet (Lasix) 20 mg PO QAM 01/04/25 01/30/25 losartan 50 mg tablet 50 mg PO QAM 01/04/25 01/30/25 Previous Rx's ?Medication ?Instructions ?Recorded apixaban 5 mg tablet (Eliquis) 5 mg PO BID #180 tabs 01/03/25 oxycodone-acetaminophen 5 mg-325 1 tab PO Q6H PRN pain #30 tabs 01/13/25 mg tablet omeprazole magnesium 20 mg 20 mg PO BID #60 tabs 02/20/25 tablet,delayed release (Prilosec OTC) hydrocodone 5 mg-acetaminophen 325 1 tab PO TID PRN pain #25 tabs 02/24/25 mg tablet tramadol 50 mg tablet 50 mg PO BID PRN pain #10 tabs 03/15/25 amiodarone 200 mg tablet 200 mg PO QAM #90 tabs 03/22/25 metoprolol succinate 25 mg 25 mg PO QAM #90 tabs 03/22/25 tablet,extended release 24 hr (Toprol XL) ondansetron 4 mg disintegrating 4 mg PO TID PRN nausea and 04/15/25 tablet vomiting 5 days #10 tabs Allergies Allergy/AdvReac Type Severity Reaction Status Date / Time No Known Allergies Allergy Verified 04/15/25 17:13 Review of Systems Review of Systems: Positive diarrhea positive generalized malaise Yes all other systems are reviewed and are negative [facility] Past Medical History Attestation statement: The following information was validated with the patient. Medical History RUQ pain History of cardioversion Cardiomyopathy PAF (paroxysmal atrial fibrillation) Anxiety Leukopenia Renal calculi Gout Hypertension CANDY (obstructive sleep apnea) Hypothyroid Hypogonadism Surgical History H/O vascular surgery Hx of colonoscopy Social History Social History Household Members: Family Housing: House Are you a primary hospice spiritual care coordinator to a significant other at home: No Do you presently have visiting nurse or other home services: No Alcohol intake: current Alcohol intake frequency: a few times a month Alcohol type: beer Comment: exercises regularly Patient Tobacco Use Status: Never used Tobacco Smoked in Last 30 Days: No e-Cigarette/Vaping Use: Never Used Second Hand Smoke Exposure: No Use of substances other than those prescribed or required for medical reasons: No Advance Directives: Yes Advance Directives on File: Yes Advance Directives Date on File: 11/15/21 Do you have a plan to hurt others: No Plan service: No Current occupational status: employed 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 Current occupational exposures/hazards: No Cognitive needs: No Hearing needs: No Vision needs: No Physical Exam Vital Signs: Vital Signs: Last Vital Signs Temp 97.5 F 04/15/25 19:50 Pulse 52 04/15/25 19:50 Resp 16 04/15/25 19:50 BP 96/47 L 04/15/25 19:50 Pulse Ox 96 04/15/25 19:50 O2 Del Method Room Air 04/15/25 19:50 BMI result Body Mass Index 40.3 Appearance: Alert. Oriented X3. No acute distress. Eyes: Pupils equal, round and reactive to light. ENT: Pharynx normal. Neck: Normal inspection. Neck supple. No lymph nodes noted. No crepitus CVS: Normal heart rate and rhythm. Pulses normal. Normal S1 and S2 Respiratory: No respiratory distress. Breath sounds normal. No Wheezing. No rales Abdomen: Soft and nontender. No rigidity. No distention. good BS x4 Skin: Skin warm and dry. Normal skin color. Normal skin turgor. Extremities: No lower extremity edema. Neurovascular intact to all extremities. No Lacerations. No Rash Neuro: Oriented X 3. No motor deficit. No sensory deficit. Moving all extermities. No slurred speech Medications Administered Discontinued Medications Generic Name Dose Route Start Last Admin Trade Name Clayq PRN Reason Stop Dose Admin Sodium Chloride 1,000 mls @ 999 mls/hr 04/15/25 18:00 04/15/25 20:31 Ns IV 04/15/25 19:00 Infused .Q1H1M SINTIA Infusion Sodium Chloride 1,000 mls @ 999 mls/hr 04/15/25 18:00 04/15/25 20:31 Ns IV 04/15/25 19:00 Infused .Q1H1M SINTIA Infusion Iohexol 100 ml 04/15/25 18:38 04/15/25 18:38 Iohexol 350 Mg/Ml 100 Ml Infus..Btl IV 04/15/25 18:39 100 ml ONCE ONE Administration Ketorolac Tromethamine 15 mg 04/15/25 17:51 04/15/25 18:06 Ketorolac Tromethamine 15 Mg/Ml Vial IVPUSH 04/15/25 17:52 15 mg ONCE ONE Administration Ondansetron HCl 4 mg 04/15/25 17:51 04/15/25 18:05 Ondansetron Hcl 4 Mg/2 Ml Vial IVPUSH 04/15/25 17:52 4 mg ONCE ONE Administration Medical Decision Making Medical Decision Making [facility] Narrative: CT of the abdomen pelvis showed no overuse evidence for obstruction. It can not exclude an early obstruction. The finding was related to surgery. Surgeon reviewed the CT scan felt patient most likely does not have obstruction. Feel comfortable with discharge and close follow-up patient's labs are normal. Patient's electrolytes are normal. Urine was negative for infection COVID flu RSV all negative. Will discharge patient home close follow-up advised. Clear liquid in the next 24 hours as per recommendation from surgery. I asked her if worsened condition return Differential Diagnosis Differential Diagnoses: The differential diagnosis associated with the presentation includes Gastroenteritis, obstruction, abscess, perforation Admission/Observation Consideration of admission/observation: Escalation of care including admission/observation considered Consult Healthcare Provider Management of the patient was discussed with: Calciner Operator Helper (Surgery 1) Lab Data [facility] Lab Attestation statement: I reviewed the patient's lab results. 04/15/25 17:22 04/15/25 17:22 Labs: Lab Results 04/15/25 04/15/25 Range/Units 17:22 17:39 WBC 8.5 (4.8-10.8) X10*3/uL RBC 4.94 (4.60-5.80) X10*6/uL Hgb 16.6 (14.0-18.0) g/dl Hct 46.2 (42.0-52.0) % MCV 93.5 (80.0-98.0) fL MCH 33.6 H (27.0-33.0) pg MCHC 35.9 (31.0-36.0) g/dl RDW 12.8 (11.0-16.0) % Plt Count 205 (160-400) X10*3/uL MPV 9.5 (9.4-12.4) fL Immature Gran % (Auto) 0.2 (0.0-0.4) % Neut % (Auto) 82.5 H (45-73) % Lymph % (Auto) 8.4 L (20-40) % [place] % (Auto) 8.2 (2-11) % Eos % (Auto) 0.6 (0-4) % Baso % (Auto) 0.1 (0-2) % Lymph # (Auto) 0.7 L (1.2-4.9) X10*3/uL [place] # (Auto) 0.7 (0.1-1.2) X10*3/uL Eos # (Auto) 0.1 (0.0-0.4) X10*3/uL Baso # (Auto) 0.0 (0.0-0.2) X10*3/uL Abs Immat Gran (auto) 0.02 (0.00-0.03) X10*3/uL Absolute Neuts (auto) 7.0 (2.0-8.3) x10*3/uL Absolute Nucleated RBC 0.000 (0.0-0.012) X10*3/uL Nucleated RBC % (auto) 0.0 (0.0-0.2) /100WBC Sodium 137 (135-145) mmol/L Potassium 4.0 (3.3-5.1) mmol/L Chloride 100 (96-108) mmol/L Carbon Dioxide 25 (22-29) mmol/L Anion Gap 16 (12-20) BUN 16 (9-16) mg/dL Creatinine 0.97 (0.5-1.4) mg/dL Estim Creat Clear Calc 107.1 Estimated GFR > 60 Random Glucose 113 (60-115) mg/dL Calcium 8.7 (8.4-10.2) mg/dL Total Bilirubin 1.1 H (0.0-1.0) mg/dL Direct Bilirubin 0.4 (0.0-0.5) mg/dL AST 32 (5-37) U/L ALT 36 (0-40) U/L Alkaline Phosphatase 81 (39-117) U/L Total Protein 7.7 (6.5-8.0) g/dL Albumin 4.8 (3.5-5.0) g/dL Urine Color Dark Yellow Urine Appearance Clear Urine pH 5.5 (5.0-9.0) Ur Specific [place] 1.020 (1.005-1.025) Urine Protein Trace (Neg-Trace) mg/dL Urine Glucose (UA) Negative (Negative) mg/dL Urine Ketones 15 (Negative) mg/dL Urine Blood Negative (Negative) Urine Nitrite Negative (Negative) Ur Leukocyte Esterase Negative (Negative) Influenza Type A (PCR) NEGATIVE (Negative) Influenza Type B (PCR) NEGATIVE (Negative) RSV RNA Qual (PCR) NEGATIVE (Negative) SARS-CoV-2 RNA (RT-PCR) NEGATIVE (Negative) Independent Interpretation I performed an independent interpretation of an: CT Scan (Grossly no large bowel obstruction) Radiology Impression Discussion of test interpretation with radiology: I have reviewed the radiologist's reading. Chronic Conditions History of atrial fibrillation history of cardiac issues history of cholecystectomy Social Determinants Patient?s care significantly limited by Social Determinants of Health including: Problems related to primary support group Discharge Plan Discharge Clinical Impression: Gastroenteritis Patient Disposition: Home, Self-Care Instructions: Acute Nausea and Vomiting (DC), Acute Diarrhea (ED) Additional Instructions: Clear liquids for the next 24 hours. Small risk of bowel obstruction exists. Worsened nausea vomiting belly pain come back Prescriptions: New ondansetron 4 mg tablet,disintegrating 4 mg PO TID PRN (Reason: nausea and vomiting) 5 Days Qty: 10 0RF No Action Eliquis 5 mg tablet 5 mg PO BID Qty: 180 3RF omeprazole magnesium [Prilosec OTC] 20 mg tablet,delayed release (DR/EC) 20 mg PO BID Qty: 60 0RF hydrocodone-acetaminophen 5-325 mg tablet 1 tab PO TID PRN (Reason: pain) Qty: 25 0RF Rx Instructions: Partial Fill upon patient request. amiodarone 200 mg tablet 200 mg PO QAM Qty: 90 3RF metoprolol succinate [Toprol XL] 25 mg tablet extended release 24 hr 25 mg PO QAM Qty: 90 3RF levothyroxine 175 mcg tablet 175 mcg PO QAM testosterone 10 mg/0.5 gram /actuation gel in metered-dose pump 20 mg topical QAM losartan 50 mg tablet 50 mg PO QAM Protocol: Hold for SBP< HOLD for SBP < : 90 furosemide [Lasix] 20 mg tablet 20 mg PO QAM oxycodone-acetaminophen 5-325 mg tablet 1 tab PO Q6H PRN (Reason: pain) Qty: 30 0RF Rx Instructions: Partial Fill upon patient request. tramadol 50 mg tablet 50 mg PO BID PRN (Reason: pain) Qty: 10 0RF Referrals: Mariusz Fish, ABSORPTION OPERATOR-BC [Primary Care Provider, Internal Medicine] - 04/17/25 Print Language: German
[2025-04-15 18:00] VITALS: BP 117/50; PULSE 52; RESP 16; TEMP 36.7; O2SAT 92
[2025-04-15 18:05] LABS: Influenza A PCR NEGATIVE (Negative); Influenza B PCR NEGATIVE (Negative); Resp Syncy Virus RNA Qual PCR NEGATIVE (Negative); SARS COV2 PCR INHOUSE NEGATIVE (Negative)
[2025-04-15] MEDS: ondansetron HCL 4 MG/2 ML VIAL IVPUSH (18:05)
[2025-04-15] MEDS: Ketorolac Tromethamine 15 MG/ML VIAL IVPUSH (18:06)
[2025-04-15] MEDS: 0.9 % Sodium Chloride 1,000 ML 999 ML IV ×2 (18:07)
[2025-04-15] MEDS: iohexoL 350 MG/ML 100 ML INFUS..BTL IV (18:38)
[2025-04-15 19:50] VITALS: BP 96/47; PULSE 52; RESP 16; TEMP 36.4; O2SAT 96
[2025-04-15 21:19] VITALS: BP 107/59; PULSE 54; RESP 16; TEMP 36.4; O2SAT 98
== END 2025-04-15 21:20 | disposition home or self-care (01) ==
PROVIDERS: Nurse Practitioner Family; Emergency Provider Emergency Medicine Emergency Medical Services; PCP Nurse Practitioner Family
DX: K52.9 Noninfective gastroenteritis and colitis, unspecified (principal); R11.2 Nausea with vomiting, unspecified; E86.0 Dehydration; Z79.899 Other long term (current) drug therapy; Z03.818 Encounter for observation for suspected exposure to other biological agents ruled out
CPT/HCPCS: 0241U; 36415; 74177; 80048; 80076; 81003; 85025; 96361; 96374; 96375; 99284; 99285; J1885; J2405; Q9967

== ENCOUNTER → 2025-04-15 18:26 | Outpatient (BNV) | payer BC, SELFPAY | PROVIDERS: Emergency Provider Emergency Medicine Emergency Medical Services; PCP Nurse Practitioner Family; Visit Provider Radiology Diagnostic Radiology | DX: N20.0 Calculus of kidney (principal); R19.00 Intra-abdominal and pelvic swelling, mass and lump, unspecified site | CPT/HCPCS: 74177 ==

== ENCOUNTER 2025-05-05 11:00 | Day surgery (SDC) | payer BC, SELFPAY ==
[2025-05-03 14:51] VITALS: BMI 38.1
--- NOTE | 2025-05-04 10:10 | P.CONAN_ITS ---
Documented by User: Octavia Palm NP 05/04/25 10:16 HPI - Anesthesia Eval Consult details Narrative: 60yo M for Upper Endoscopy s/p Cholecystectomy Laparoscopic,possible open, 01/13/25 with GA-ETT 7 (required drain post op) Cardiac optimized. Follows [facility] Cardiology. Afib: with RVR incidental finding prior to stress test. s/p BRICE/cardioversion 09/2024. [place]. Eval by EP at [facility] with plan for catheter ablation in May Cardiomyopathy: likely tachy related Noted in EP note: Pt with signif lifestyle change since afib dx. Regular exercise and healthy diet now. Echo 01/11: EF 60-65%, mild grade I diastolic dysfunction PMFSH Active Problems Active Problems: All Active Problems RUQ pain (Acute) Abnormal ECG (Acute) Renal cyst (Acute) Renal calculi (Acute) Leukopenia (Acute) Abdominal pain (Acute) Anxiety (Acute) Vitamin D deficiency (Acute) Cyst of right kidney (Acute) Enlarged pulmonary artery (Acute) PAF (paroxysmal atrial fibrillation) (Acute) Gallstones (Acute) Cardiomyopathy (Acute) Atrial fibrillation with rapid ventricular response (Acute) SOB (shortness of breath) (Acute) Varicose veins of right lower extremity with inflammation (Acute) Varicose veins of left lower extremity with inflammation (Acute) Varicose veins of bilateral lower extremities with pain (Acute) Screening PSA (prostate specific antigen) (Acute) Physical exam (Acute) Gout (Acute) Screening for colon cancer (Acute) Bradycardia (Acute) Past Medical History Medical History (Updated 05/05/25 @ 12:16 by Savanna Weaver RN) History of cardioversion History of stress test RUQ pain History of cardioversion Cardiomyopathy PAF (paroxysmal atrial fibrillation) Anxiety Leukopenia Renal calculi Gout Hypertension CANDY (obstructive sleep apnea) Hypothyroid Hypogonadism Family History Family history of problems with anesthesia: No Surgical History Surgical History (Updated 05/05/25 @ 12:18 by Savanna Weaver RN) History of cardiac ablation for atrial fibrillation H/O endoscopy Hx of cholecystectomy H/O vascular surgery Hx of colonoscopy History of Problems with Anesthesia: No Social History Social History Household Members: Family Housing: House Are you a primary healthcare insurance sales agent to a significant other at home: No Do you presently have visiting nurse or other home services: No Alcohol intake: current Alcohol intake frequency: a few times a month Alcohol type: beer Comment: exercises regularly Patient Tobacco Use Status: Never used Tobacco e-Cigarette/Vaping Use: Never Used Second Hand Smoke Exposure: No Use of substances other than those prescribed or required for medical reasons: No Are you DNR?: No Advance Directives: No Advance Directives Information Provided: Yes Advance Directives Date on File: 11/15/21 service: No Current occupational status: employed 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 [employer] Current occupational exposures/hazards: No Cognitive needs: No Hearing needs: No Vision needs: No Meds Allergies Allergy/AdvReac Type Severity Reaction Status Date / Time No Known Allergies Allergy Verified 05/05/25 12:23 Home Medications ?Medication ?Instructions ?Recorded ?Confirmed ?Last Taken ?Type levothyroxine 175 mcg tablet 175 mcg PO QAM 06/14/21 0 05/03/25 05/05/25 History testosterone 10 mg/0.5 20 mg topical QAM 06/14/21 0 05/03/25 10/10/24 History gram/actuation transdermal gel pump furosemide 20 mg tablet (Lasix) 20 mg PO QAM 01/04/25 05/03/25 01/12/25 History losartan 50 mg tablet 50 mg PO QAM 01/04/2501/12/25 History Exam Height,Weight and Vital Signs: Height 5 ft 11 in Weight 123.831 kg Pertinent Lab Results Pertinent Lab Results: Laboratory Tests 04/15/25 17:22 WBC 8.5 Hgb 16.6 Hct 46.2 Plt Count 205 Sodium 137 Potassium 4.0 Chloride 100 Carbon Dioxide 25 BUN 16 Creatinine 0.97 Narrative Narrative: EKG 01/2025 Details: Sinus bradycardia 52 beats per minute, left axis deviation, can not rule out inferior infarct, poor R-wave progression, QTC 420 milliseconds. ECHO 12/2024 Conclusions: - 1. Normal LV ejection fraction of 60 65% with mild LVH with impaired relaxation filling pattern 2. Mildly dilated left atrium 3. Normal cardiac valvular Dopplers next 4. Normal RV systolic pressure 5. Mildly dilated ascending aorta at 3.7 cm 6. No pericardial effusion Assessment and Plan Assessment Anesthesia Assessment: Chart Reviewed Final Anesthetic Review Family History of Problems with Anesthesia: No History of Problems with Anesthesia: No Documented by User: Geni Grewal MD 05/05/25 12:49 PMFSH Past Medical History Medical History (Updated 05/05/25 @ 12:16 by Savanna Weaver RN) History of cardioversion History of stress test RUQ pain History of cardioversion Cardiomyopathy PAF (paroxysmal atrial fibrillation) Anxiety Leukopenia Renal calculi Gout Hypertension CANDY (obstructive sleep apnea) Hypothyroid Hypogonadism Surgical History Surgical History (Updated 05/05/25 @ 12:18 by Savanna Weaver RN) History of cardiac ablation for atrial fibrillation H/O endoscopy Hx of cholecystectomy H/O vascular surgery Hx of colonoscopy Social History Social History Household Members: Family Housing: House Are you a primary healthcare insurance sales agent to a significant other at home: No Do you presently have visiting nurse or other home services: No Alcohol intake: current Alcohol intake frequency: a few times a month Alcohol type: beer Comment: exercises regularly Patient Tobacco Use Status: Never used Tobacco e-Cigarette/Vaping Use: Never Used Second Hand Smoke Exposure: No Use of substances other than those prescribed or required for medical reasons: No Are you DNR?: No Advance Directives: No Advance Directives Information Provided: Yes Advance Directives Date on File: 11/15/21 service: No Current occupational status: employed 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 [employer] Current occupational exposures/hazards: No Cognitive needs: No Hearing needs: No Vision needs: No Meds Allergies Allergy/AdvReac Type Severity Reaction Status Date / Time No Known Allergies Allergy Verified 05/05/25 12:23 Home Medications ?Medication ?Instructions ?Recorded ?Confirmed ?Last Taken ?Type levothyroxine 175 mcg tablet 175 mcg PO QAM 06/14/21 0 05/03/25 05/05/25 History testosterone 10 mg/0.5 20 mg topical QAM 06/14/21 0 05/03/25 10/10/24 History gram/actuation transdermal gel pump furosemide 20 mg tablet (Lasix) 20 mg PO QAM 01/04/25 05/03/25 01/12/25 History losartan 50 mg tablet 50 mg PO QAM 01/04/2501/12/25 History Exam Airway Mallampati Class: III TM Dist: >3cm Neck ROM: Full Assessment and Plan Assessment Anesthesia Assessment: Anesthesia Plan Discussed Final Anesthetic Review NPO: Yes ASA Class: III Final Preanesthetic Review: No Changes in Pt Med Stat, Meds/Allgs Chart Reviewed, Consent Obtained/Reviewed and Anes Risks/Benef Reviewed Patient Risk: Intermediate Procedure Risk: Low Anesthetic Plan Anesthetic Plan: TIVA Disposition: Standard PACU
[2025-05-05 12:19] VITALS: BMI 38.6
[2025-05-05 12:39] VITALS: BP 127/68; PULSE 44; RESP 16; TEMP 36.4; O2SAT 98
[2025-05-05] MEDS: Lactated Ringers 1,000 ML 50 ML IVCONT (12:46)
--- NOTE | 2025-05-05 13:14 | MHC.SHP ---
Pre-Procedural Eval Section A - 24 Hr Update-Section A only Date of Service: 05/05/25 The patient is an INPATIENT: No Changes since office visit: No Cold of Flu in the past 2 weeks, No New Medical Problems, No Changes in Medication and No Patient answered all questions The patient has been examined within 24 hours of the surgical procedure. The History & Physical has been completed within 30 days and I have reviewed it.: Yes Section B - Complete if H&P > 30 days Chief Complaint: gerd Allergies: Allergies Allergy/AdvReac Type Severity Reaction Status Date / Time No Known Allergies Allergy Verified 05/05/25 12:23 Plan I have reviewed the history and physical and performed a pertinent physical examination on my patient. No changes have occurred unless specified. Time Spent With Patient Time: Total time managing care of this patient today ____ minutes.
[2025-05-05 13:41] VITALS: BP 101/76; PULSE 52; RESP 16; TEMP 37.1; O2SAT 95
[2025-05-05 13:55] VITALS: BP 111/71; PULSE 46; RESP 16; O2SAT 95
[2025-05-05 14:00] VITALS: BP 123/73; PULSE 45; RESP 16; TEMP 37.1; O2SAT 95
[2025-05-05 14:15] VITALS: BP 122/79; PULSE 44; RESP 16; O2SAT 95
[2025-05-05 14:32] VITALS: BP 114/76; PULSE 48; RESP 16; TEMP 36.6; O2SAT 95
--- NOTE | 2025-05-05 14:47 | OP_ITS ---
DATE OF SERVICE: 05/05/2025 SURGEON: Vivek Keller MD INDICATIONS: Gastroesophageal reflux disease and abdominal pain. PREOPERATIVE DIAGNOSIS: POSTOPERATIVE DIAGNOSIS: PROCEDURE PERFORMED: Upper endoscopy with biopsy. ESTIMATED BLOOD LOSS: COMPLICATIONS: ANESTHESIA: Monitored anesthesia care. ASSISTANTS: SPECIMENS: DESCRIPTION OF PROCEDURE: A history and physical was performed. The risks and benefits of the procedure were explained to the patient. Informed consent was obtained. The patient was placed in the left lateral decubitus position. The Olympus video gastroscope was introduced into the esophagus, stomach, and duodenum. Examination was performed. The scope was removed. He tolerated the procedure well and was returned to the recovery area in stable condition. 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 There were no raised lesions or ulcerated areas. Biopsies were obtained in all 4 quadrants. Stomach: The stomach showed no evidence of masses, ulcers, or polyps. Antral biopsies were obtained to evaluate for H pylori. Duodenum: The bulb and 2nd portion were normal. IMPRESSION: Gastroesophageal reflux disease. RECOMMENDATION: Follow up the biopsy results. MD CHERISE Lomeli/ZHOUL / [id number]
== END 2025-05-05 14:50 | disposition home or self-care (01) ==
PROVIDERS: PCP Nurse Practitioner Family; Visit Provider Internal Medicine Gastroenterology
PROC: 0DJ08ZZ Inspection of Upper Intestinal Tract, Via Natural or Artificial Opening Endoscopic (ICD-10-PCS; CPT 43235; principal; 2025-05-05 12:50)
DX: K21.9 Gastro-esophageal reflux disease without esophagitis (principal); K22.89 Other specified disease of esophagus; R10.13 Epigastric pain; K29.70 Gastritis, unspecified, without bleeding; I48.0 Paroxysmal atrial fibrillation; I10 Essential (primary) hypertension; I42.9 Cardiomyopathy, unspecified; E03.9 Hypothyroidism, unspecified; M10.9 Gout, unspecified; E29.1 Testicular hypofunction; G47.33 Obstructive sleep apnea (adult) (pediatric); Z83.719 Family history of colon polyps, unspecified; Z79.01 Long term (current) use of anticoagulants; Z99.89 Dependence on other enabling machines and devices; Z79.899 Other long term (current) drug therapy; Z98.890 Other specified postprocedural states; Z90.49 Acquired absence of other specified parts of digestive tract; Z87.442 Personal history of urinary calculi; Z79.82 Long term (current) use of aspirin
CPT/HCPCS: 43239; 88305; 88342; J2003; J2704

== ENCOUNTER 2025-05-16 11:18 | Outpatient (AMB) | payer BC, SELFPAY ==
--- NOTE | 2025-05-16 11:24 | A.OFFPC_ITS ---
Vital Signs 05/16/25 11:25 Height 5 ft 11 in Weight 284 lb BMI 39.6 BP 124/84 Blood Pressure Location Lt brachial Position Sitting Respiration 16 Pulse 63 Pulse Source Pulse Oximeter Pulse Oximetry (%) 94 Oxygen Delivery Method Room Air Intake Visit Reasons: 6m f/u Api Product Manager Required: No Accompanied by: Self / Same As Patient Allergies No Known Allergies Allergy (Verified 05/16/25 11:26) Medication List - Last Reconciled 05/16/25 [facility] amiodarone 200 mg PO QAM apixaban (Eliquis) 5 mg PO BID furosemide (Lasix) 20 mg PO QAM levothyroxine 175 mcg PO QAM losartan 50 mg See Protocol PO QAM metoprolol succinate ER (Toprol XL) 25 mg PO QAM omeprazole magnesium (Prilosec OTC) 20 mg PO BID 90 days sertraline 25 mg PO DAILY testosterone 10 mg/0.5 gram /actuation 20 mg topical QAM Tobacco use date assessed: 05/16/25 Dental Screening Dental Screen Date: 05/16/25 Did you have a dental visit in the last 12 months?: Yes Did you have a dental problem in the last 6 months where you did not have access to dental care?: No Was dental information given to patient?: Patient has dentist HPI 6m f/u HPI Details Chief Complaint The patient reports persistent quadrant tenderness following gallbladder removal. History of Present Illness The patient is a 60-year-old male presenting with post-cholecystectomy quadrant tenderness. He reports that the tenderness has been present since the gallbladder removal in December, which was described as a complicated procedure by the surgeon. The tenderness is reportedly improving over time. Pain is not increased or decreased by anything particular. The patient is also scheduled for a cardiac ablation due to atrial fibrillation in the near future. He expresses feelings of anxiety about the procedure but is also eager to have it completed. The patient was previously started on a medication regimen that included a buspirone, which was ineffective, and the dose was titrated without success. A low dose of sertraline 25 mg is planned to be initiated, with follow-up via portal in about two months to assess progress of his generalized anxiety. Social History Health Maintenance Review of Systems - Gastrointestinal: Reports quadrant ten derness post-cholecystectomy. Denies nausea, vomiting, diarrhea. - Psychiatric: Reports anxiety about upc oming procedure. Denies suicidal ideation or homicidal ideation. Physical Exam General: Cooperative, healthy appearing, comfortable, no acute distress and well developed Orientation: Patient oriented x3 Limitations: No limitations Head: Normal to inspection Ears: Hearing grossly normal bilaterally Nose: Normal external nose present Face and sinus: Normal facial exam Eyes: Appearance normal, both eyes and all related structures Neck: Normal visual inspection and Yes full ROM Respiratory: Normal respiratory effort and able to speak in complete sentences. Clear to auscultation bilaterally Cardiovascular: irregularly irregular GI: Normal to inspection. Soft to palpation and nontender. Skin: No rashes or lesions noted Neuro: Patient oriented x3 Extremities: Normal to inspection Results - Imaging: CAT scan was performed post-c holecystectomy. Plan The patient will continue to be monitored for post-cholecystectomy quadrant tenderness, with reassurance that he can contact the clinician or general surgeon if needed. For atrial fibrillation, the patient is scheduled for a cardiac ablation, and he is advised to prepare for the procedure while managing anxiety with sertraline 25 mg. Follow-up will be conducted via the patient fanny l in about two months to assess the effectiveness of the sertraline and overall progress. Discussion Notes I discussed with the patient the ongoing management of his post-cholecystectomy tenderness and the upcoming cardiac ablation for atrial fibrillation. We reviewed the plan to initiate sertraline for anxiety management and the importance of follow-up to monitor his response to the medication. Patient Instructions - Monitor for any changes in tenderness and contact the clinician or surgeon if needed. - Prepare for the upcoming cardiac ablat ion and manage anxiety with prescribed sertraline. - Follow up via the patient portal in tw o months to discuss progress. [facility] Medical History History of cardioversion History of stress test RUQ pain History of cardioversion Cardiomyopathy PAF (paroxysmal atrial fibrillation) Anxiety Leukopenia Renal calculi Gout Hypertension CANDY (obstructive sleep apnea) Hypothyroid Hypogonadism Surgical History History of cardiac ablation for atrial fibrillation H/O endoscopy Hx of cholecystectomy H/O vascular surgery Hx of colonoscopy Social History Household Members: Family Housing: House Are you a primary primary care provider to a significant other at home: No Do you presently have visiting nurse or other home services: No Alcohol intake: current Alcohol intake frequency: a few times a month Alcohol type: beer Comment: exercises regularly Patient Tobacco Use Status: Never used Tobacco e-Cigarette/Vaping Use: Never Used Second Hand Smoke Exposure: No Advance Directives Date on File: 11/15/21 service: No Current occupational status: employed 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 1. Little interest or pleasure in doing things: not at all 2. Feeling down, depressed, or hopeless: not at all 3. Trouble falling or staying asleep, or sleeping too much: not at all 4. Feeling tired or having little energy: not at all 5. Poor appetite or overeating: not at all 6. Feeling bad about yourself - or that you are a failure or have let yourself or your family down: not at all 7. Trouble concentrating on things, such as reading the newspaper or watching television: not at all 8. Moving or speaking so slowly that other people could have noticed. Or the opposite - being so fidgety or restless that you have been moving around a lot more than usual: not at all 9. Thoughts that you would be better off or of hurting yourself in some way: not at all Total score: 0 Depression Screening Interpretation: Negative Depression Screening Done: Yes 86924 - PHQ-9 Billing: Yes Source: Developed by Drs. Grayson Brooks, Yesenia Fournier, Adin Seaman and colleagues, with an educational carey from [employer]. Thrive Questionnaire Date Thrive assessed: 10/20/24 I am a: Patient What is your living situation today?: I have a steady place to live Within the past 12 months, did the food you bought not last and you didn't have the money to get more?: Never true Within the past 12 months, did you worry whether your food would run out before you got money to buy more?: Never true Do you have trouble paying for medicines?: No Do you have trouble getting transportation to medical appointments?: No Do you have trouble paying your heating and electricity bill?: No Do you have trouble taking care of your child, family member or friend?: No Do you have trouble with day-to-day activities such as bathing, preparing meals, shopping, managing finances, etc.?: No Are you currently unemployed and looking for a job?: No Are you interested in more education?: No Please select the resources that you would like help with: None Currently or been in a relationship where the following occur: No concerns reported THRIVE Score: 0 SHASHANK-7 AMB Questionnaire SHASHANK-7 Date SHASHANK - 7 assessed: 05/16/25 Feeling nervous, anxious, or on edge: 0 = Not at all Not being able to stop or control worryin = Not at all Worrying too much about different things: 0 = Not at all Trouble relaxin = Not at all Being so restless that it is hard to sit still: 0 = Not at all Becoming easily annoyed or irritable: 0 = Not at all Feeling afraid as if something awful might happen: 0 = Not at all Total SHASHANK-7 score (0-4 normal; 5-9 mild; 10-14 moderate; 15-21 severe): 0 Source: Developed by Drs. Grayson Brooks, Yesenia Fournier, Adin Seaman and colleagues, with an educational carey from [employer]. SHASHANK-7 Assessment Billing SHASHANK-7 Assessment Tool: SHASHANK-7 Assessment 23692 Physical exam (Primary Care) Vital Signs: Last Vital Signs Pulse 63 05/16/25 11:25 Resp 16 05/16/25 11:25 BP 124/84 05/16/25 11:25 Pulse Ox 94 05/16/25 11:25 Oxygen Delivery Method Room Air 05/16/25 11:25 BMI result Body Mass Index 39.6 Tobacco/Smoking Status: Tobacco use Status Tobacco use date assessed 05/16/25 05/16/25 11:30 Patient Tobacco Use Status Never used Tobacco 05/16/25 11:25 e-Cigarette/Vaping Use Never Used 05/16/25 11:25 PHQ-9: PHQ-9 Score PHQ-9: Total score 0 05/16/25 12:13 Depression Screening Interpretation: Negative Thrive Assessment: Date of Thrive Assessment Date Thrive assessed 10/20/24 05/16/25 11:25 Currently or been in a relationship where the following occur: No concerns reported Coding Level of Care Code Est Pt Level 3 (52207) Diagnoses Obesity (BMI 30-39.9) E66.9 Anxiety F41.9 PAF (paroxysmal atrial fibrillation) I48.0 RUQ pain R10.11 Additional Codes SHASHANK-7 Assessment Billing - SHASHANK-7 Assessment Tool: SHASHANK-7 Assessment 77574 ([id number]) PHQ-9 - 76605 - PHQ-9 Billing: Yes ([id number]) Assessment & Plan Assessment & Plan (1) Obesity (BMI 30-39.9): Code(s): E66.9 - Obesity, unspecified Category: Medical (2) Anxiety: Code(s): F41.9 - Anxiety disorder, unspecified Category: Medical (3) PAF (paroxysmal atrial fibrillation): Code(s): I48.0 - Paroxysmal atrial fibrillation Category: Medical (4) RUQ pain: Code(s): R10.11 - Right upper quadrant pain Category: Medical Plan . Orders: Referrals Nutrition/Dietitian Referral E66.9 - Obesity, unspecified Medications: New sertraline 25 mg PO DAILY 30 tabs 2RF Changed From omeprazole magnesium (Prilosec OTC) 20 mg PO BID PRN Heartburn To omeprazole magnesium (Prilosec OTC) 20 mg PO BID 180 tabs 0RF 90 days
[2025-05-16 11:25] VITALS: BP 124/84; PULSE 63; RESP 16; O2SAT 94; BMI 39.6
--- OUTSIDE RECORDS SUMMARY | 2025-05-16 12:32 | XMS_ITS | Clinical Summary ---
Author Organization [facility] Address [address] [place] [phone] Phone Care Team Providers Care Atg Architect Name Role Phone Mariusz Fish HOSPICE LIAISON Primary Care Provider + Allergies No known active allergies Medications amLODIPine (NORVASC) 5 MG tablet 01/23/20 23 Active lisinopril (PRINIVIL,ZESTRIL) 40 MG tablet 01/23/20 23 Active aspirin 81 MG EC tablet Take 81 mg by mouth daily. Active testosterone 10 mg/0.5 gram /actuation GlPmIndications:Hy pogonadism male APPLY 3 PUMPS TO SKIN ONCE DAILY 60 g 5 02/22/20 25 Active testosterone (ANDROGEL) 20.25 mg/1.25 gram (1.62 %) transdermal gel pumpIndications:Hy pogonadism male Apply 1 Application topically daily. While the 1% strength unavailable 75 g 3 04/12/20 25 Active levothyroxine (SYNTHROID, LEVOTHROID) 175 MCG tabletIndications: Acquired hypothyroidism Take 1 tablet (175 mcg total) by mouth every morning. 90 tablet 1 04/24/20 25 Active levothyroxine (SYNTHROID, LEVOTHROID) 175 MCG tabletIndications: Acquired hypothyroidism Take 1 tablet (175 mcg total) by mouth every morning. 90 tablet 3 08/11/20 24 07 025 Discontin ued(Reord er) Active Problems Problem Noted Date Diagnosed Date Screening for prostate cancer 08/11/2024 Macrocytosis 08/11/2024 Assessment & Plan (08/11/2024 1:49 PM EDT): Minimal, persistent. Will include B12 level w/ next labs. Hypogonadism male Assessment & Plan (08/11/2024 1:48 PM EDT): Clinically stable. Has good energy & sexual function. Total testosterone is high normal, free testosterone mildly high, PSA normal as are H/H & transaminases. Took rx early in order to have done at correct timing @ lab. Would repeat 4-8 hrs after taking at usual time & will adjust if persistently in similar range. Assessment & Plan (03/13/2023 9:08 AM EDT): Clinically stable. Has good energy & sexual function. Testosterone is normal with nl/stable PSA, H/H & transaminases. Acquired hypothyroidism Assessment & Plan (08/11/2024 1:48 PM EDT): Clinically & biochemically euthyroid. Reports good consistency taking rx appropriately. Would repeat labs yearly, sooner prn symptoms of thyroid dysfunction or > 10-15# weight change, or as otherwise clinically indicated. Assessment & Plan (03/13/2023 9:08 AM EDT): Clinically & biochemically euthyroid. Reports good consistency taking rx appropriately. Would repeat labs yearly, sooner prn symptoms of thyroid dysfunction or > 10-15# weight change, or as otherwise clinically indicated. Essential hypertension Encounters Date Type Department Care Team Description 04/12/2025 Orders Only [facility] Endocrinology [address] [place] [address] [place] [address] Gunjan Leal MD Hypogonadism male (Primary Dx) 04/10/2025 Orders Only [facility] Endocrinology [place] [address] [place] [phone] Gunjan Leal MD 04/07/2025 Telephone [facility] [place] [address] Gunjan Leal MD Out of stock Testosterone gel (Out of stock Testosterone gel) 02/23/2025 Refill [facility] [address] [place] [address] Echo Mclaughlin MA 02/21/2025 Telephone [facility] [address] [place] [address] Gunjan Leal MD Medication Prior Authorization 02/21/2025 Refill [facility] [address] [place] [address] Gunjan Leal MD Medication Refill from Last 3 Months Family History Medical History Relation Comments Thyroid disease Neg Hx Social History Tobacco Use Types Packs/Day Years Used Date Smoking Tobacco: Never Passive Smoke Exposure: Never Smokeless Tobacco: Never Tobacco Cessation:Counseling Given: No Alcohol Use Standard Drinks/Week Comments Yes 0 (1 standard drink = 0.6 oz pur e alcohol) weekends Education Answer Date Recorded Are you interested in more education? Not on pablo e 02/14/2023 Are you concerned about learning? Not on file 02/14/2023 No 02/14/2023 No 02/14/2023 Digital Access Answer Date Recorded No 03/13/2023 No 03/13/2023 No 03/13/2023 Reliable internet access at home? Not on file 03/13/2023 Device with a working camera? Not on file Sex and Gender Information Value Date Recorded Sex Assigned at Not on file Legal Sex Male 9:19 AM EST Gender Identity Not on file Sexual Orientation Not on file Last Filed Vital Signs Vital Sign Reading Time Taken Comments Blood Pressure 120/72 08/11/2024 9:45 AM EDT Pulse 63 08/11/2024 9:45 AM EDT Temperature 36.2 C (97.2 F) 03/13/2023 8:19 AM EDT Respiratory Rate - - Oxygen Saturation 95% 08/11/2024 9:45 AM EDT Inhaled Oxygen Concentration - - Weight 139.7 kg (308 lb) 08/11/2024 9:45 AM EDT Height 180.3 cm (5' 10.98 ) 08/11/2024 9:45 AM E DT Body Mass Index 42.98 08/11/2024 9:45 AM EDT Plan of Treatment Upcoming Encounters Date Type Department Care Team (Late st Contact Info) Description 08/09/2025 10:00 AM EDT Office Visit [facility] [address] [place] [address] [place] [address] Gunjan Leal MD [address] [place] [phone] [email or web address] Health Maintenance Due Date Last Done Comments Adult Td,Tdap Booster 1964 CREATININE LEVEL 1964 LIPID PANEL 1964 POTASSIUM LEVEL 1964 DEPRESSION SCREENING 1976 HEPATITIS C SCREENING 02/01/1982 HIV ONE-TIME SCREENING (18-6 5 YEARS) 02/01/1982 SCREENING FOR DIABETES 02/01/1999 COLOGUARD 02/01/2009 COLONOSCOPY 02/01/2009 COLORECTAL CANCER SCREENING 02/01/2009 FIT TEST 02/01/2009 FOBT 02/01/2009 SIGMOIDOSCOPY 02/01/2009 VIRTUAL COLONOSCOPY 02/01/2009 PNEUMOCOCCAL VACCINES (50+ years) (1 of 1 - PCV) 02/01/2014 ZOSTER VACCINES (1 of 2) 02/01/2014 RSV VACCINE (1 - Risk 60-74 years 1-dose series) 2024 COVID-19 VACCINE ( - 2023-2 5 season) 2024 BLOOD PRESSURE 02/09/2025 08/11/2024 TSH LEVEL 08/03/2025 08/03/2024, 03/19/2023, 03/10/2023 SMOKING STATUS SCREENING (On ce After 26 Yrs) Completed 03/13/2023 HEPATITIS A VACCINES Aged Out No long er eligible based on patient's age to complete this topic HIB VACCINES Aged Out No longer eligi ble based on patient's age to complete this topic MENINGOCOCCAL VACCINES (ACWY) Aged Out No longer eligible based on patient's age to complete this topic MENINGOCOCCAL VACCINES (B) Aged Out N o longer eligible based on patient's age to complete this topic Medical Devices Not on file Procedures Procedure Name Priority Date/Time Associated Diagnosis Comments TSH WITH REFLEX Routine 08/03/2024 10:50 AM EDT Acquired hypothyroidism from Last 3 Months or Most Recently Relevant to Health Maintenance Results * TSH with reflex (08/03/2024 10:50 AM EDT) Blood Gunjan Leal MD LAB BLOOD ORDERABLES F inal Result [facility] [address] [place] [address] from Last 3 Months or Most Recently Relevant to Health Maintenance Insurance [employer] [facility] [employer] [facility] [employer] [facility] Care Teams Atg Architect Relationship Specialty Start Date End Date Mariusz Fish NP [address] [place] [address] [email or web address] PCP - General Nurse Practitioner 12/11/22 Additional Source Comments The information contained in this document represents components of the legal health record. It is not the complete legal health record.[facility]
== END 2025-05-16 12:45 | disposition home or self-care (01) ==
LOC: HO.HMCC 11:19
PROVIDERS: PCP Nurse Practitioner Family; Visit Provider Nurse Practitioner Family
DX: I48.0 Paroxysmal atrial fibrillation (principal); E66.9 Obesity, unspecified; Z68.39 Body mass index [BMI] 39.0-39.9, adult; F41.9 Anxiety disorder, unspecified; R10.11 Right upper quadrant pain

== ENCOUNTER → 2025-05-16 11:18 | Outpatient (BNVA) | payer BC, SELFPAY | PROVIDERS: PCP Nurse Practitioner Family; Visit Provider Nurse Practitioner Family | DX: E66.9 Obesity, unspecified (principal); Z68.39 Body mass index [BMI] 39.0-39.9, adult; F41.9 Anxiety disorder, unspecified; I48.0 Paroxysmal atrial fibrillation; R10.11 Right upper quadrant pain; Z13.31 Encounter for screening for depression; Z13.39 Encounter for screening examination for other mental health and behavioral disorders | CPT/HCPCS: 96127 ==

== ENCOUNTER 2025-05-31 09:45 | Outpatient (REF) | payer BC, SELFPAY ==
--- OUTSIDE RECORDS SUMMARY | 2025-05-31 10:17 | XMS_ITS | Clinical Summary ---
Author Organization [facility] Address [address] [place] [phone] Phone Care Team Providers Care Cage Manager Name Role Phone Mariusz Fish INSTRUMENT MAKER Primary Care Provider + Allergies No known [...] morning. 90 tablet 1 04/24/20 25 Active Active Problems Problem Noted Date Diagnosed Date [...] Department Care Team Description 04/12/2025 Orders Only [facility] [place] [address] [place] [address] [place] [address] Gunjan Leal MD Hypogonadism male (Primary Dx) 04/10/2025 Orders Only [facility] Endocrinology [place] [address] [facility] [place] [phone] Gunjan Leal MD 04/07/2025 Telephone [facility] [place] [address] [place] [address] [place] [address] Gunjan Leal MD Out of stock Testosterone gel (Out of stock Testosterone gel) from Last 3 Months Family History Medical [...] 10:00 AM EDT Office Visit [facility] [address] [place] [address] [place] [address] Gunjan Leal MD [address] [place] [phone] [email or web address] Health Maintenance Due Date Last Done Comments [...] 60-74 years 1-dose series) 2024 COVID-19 VACCINE (1 - 2023-2 5 season) 2024 BLOOD PRESSURE [...] MD LAB BLOOD ORDERABLES F inal Result [facility] [address] [place] [address] from Last 3 Months or Most Recently Relevant to Health Maintenance Insurance [facility] [address] [address] [facility] Care Teams Cage Manager Relationship Specialty Start Date End Date Mariusz Fish NP [address] [facility] [place] [place] [address] PCP - General Nurse Practitioner 12/11/22 Additional Source Comments The information contained in this document represents components of the legal health record. It is not the complete legal health record.[facility]
[2025-05-31 14:12] LABS: Alanine Aminotransferase 21 U/L (0-40); Albumin Level 4.3 g/dL (3.5-5.0); Alkaline Phosphatase 72 U/L (39-117); Aspartate Amino Transferase 27 U/L (5-37); Total Protein 7.0 g/dL (6.5-8.0)
== END 2025-05-31 09:46 | disposition home or self-care (01) ==
LOC: HO.HMGCLDS 09:45
PROVIDERS: PCP Nurse Practitioner Family; Visit Provider Internal Medicine Cardiovascular Disease
DX: I48.0 Paroxysmal atrial fibrillation (principal)
CPT/HCPCS: 36415; 80076; 84443

== ENCOUNTER 2025-06-12 09:30 | Outpatient (AMB) | payer BC, SELFPAY ==
--- OUTSIDE RECORDS SUMMARY | 2025-06-09 13:12 | XMS_ITS | Continuity of Care Document ---
Author Organization [facility] ter Address [address] [place] [id number] Care Team Providers Care Kiln Tender Name Role Phone Polina CORADO, Sanket Zaidi Primary Care Physician Encounter [facility] Date(s): 06/09/25 - 06/09/[address] [id number] Discharge Disposition: A-D/C Home Attending Physician: Brett Avitia DO Admitting Physician: Brett Avitia DO Referring Physician: Brett Avitia DO Encounter Type: Disch Daystay Allergies, Adverse Reactions, Alerts No Known Allergies Medications Eliquis 5 mg oral tablet 0 Refills, Maintenance, 12/15/24 8:51:00 AM EST, Partial fill upon patient request if the prescription is for a schedule II opioid drug. Start Date: 12/15/24 Status: Ordered Repeat number: 1 Fish Oil By Mouth, 0 Refills, Maintenance, 06/09/25 7:48:00 AM EDT, Partial fill upon patient request if the prescription is for a schedule II opioid drug. Start Date: 06/09/25 Status: Ordered Repeat number: 1 furosemide 20 [...] Date: 12/15/24 Status: Ordered Repeat number: 1 Multivitamin 0 Refills, Maintenance, 06/09/25 7:48:00 AM EDT, Partial fill upon patient request if the prescription is for a schedule II opioid drug. Start Date: 06/09/25 Status: Ordered Repeat number: 1 testosterone 10 mg/actuation transdermal gel 0 Refills, Maintenance, 12/15/24 8:51:00 AM EST, Partial fill upon patient request if the prescription is for a schedule II opioid drug. Start Date: 12/15/24 Status: Ordered Repeat number: 1 Problem List Condition Confirmation Course Effective Dates Status Health St atus Informant Severe obesity Confirmed Active Note * Event Display: Hemodynamic Procedure Report Authored Date: [id number] * Event Display: Hemodynamic Procedure Report Authored Date: * Yesenia Burkett RN: PERFORM Event Display: Discharge/Transfer Note Hospital Authored Date: [id number] Nursing Discharge Note Entered On: 06/09/2025 13:20 EDT Performed On: 06/09/2025 13:12 EDT by Yesenia Burkett RN Nursing Discharge Note 2 Discharge Time : 06/09/2025 13:11 EDT Discharge Level of Care at Discharge : Home/Correction/Foster Care Patient Left Unit Via : Wheelchair Patient Accompanied Off Unit with : Significant other DC Instructions Provided & Signed by Pt : Yes Patient Understands D/C Instructions : Yes Patient Instructions Discharge Signed : Yes Discharge Comments : Pt bilateral groin dressings remain C/D/I PT discharge instructions discussed and provided to patient who verbalized understanding. Did Pt have Specialty Bed or Wound Vac : No Yesenia Burkett RN - 06/09/2025 13:12 EDT * Yesenia Burkett RN: MODIFY, PERFORM, MODIFY Event Display: Patient Education/Instruction Authored Date: [id number] Inpatient Adult Discharge Instructions. [address] [address] Name: SANKET CROCKETT : 1965?? Visit: 06/09/2025 06:00?? Current Date: 06/09/2025 10:55 ?? Account: [id number]?? Inpatient Adult Discharge Instructions We would like to thank you for allowing us to assist you with your healthcare needs. The following includes patient education materials and information regarding your injury/illness. Our entire staffstrives to provide an excellent experience for our patients and their families. PLEASE ENSURE YOU FOLLOW-UP PER THE INSTRUCTIONS BELOW! ?? YOUR OPINION IS IMPORTANT TO US! Please complete the survey you may receive by mail or email. Your feedback will be used to make improvements to the healthcare experiences of our patients and their families. Surveys are administered by [employer] ?? If further treatment with your primary care physician or another doctor is recommended, it is important for you to keep the appointment. Call your primary care physician or return to the Emergency Department immediately if your condition worsens, fails to improve, or new symptoms develop. If you need to find a doctor, you can call [facility] Callision Link for a referral at [phone] or toll free at [phone] ([phone]) or log in to [email or web address].. ?? [facility], in keeping with [facility] guidance, no longer requires face masks for staff, patientsor visitors in most situations. Similiar to time spent indoors at other locations, there is the chance that you were exposed to repiratory viruses during your time with us (such as flu or COVID-19). If you develop symptoms concerning for a viral respiratory infection, please seek testing (and treatment if indicated) from your medical provider or home test kit. ?? You can view and manage your care through the patient portal or by using a health care miguel of your choosing. [employer] is a website that allows you to securely view your medical information including your hospital discharge summary, office visit summaries, medications and follow-up visits. You can also request appointments, renew medications, and request access to your medical information using a health care miguel of your choosing, or just ask a question. You are entitled to know the individuals who participated in your treatment. This information is available within your medical record and will be provided upon your request. You can enroll at [email or web address] or register d uring your next office visit. You have been discharged from [facility], Patient Care Unit: CARE??. If you have any questions regarding these instructions, including results of studies pending, afteryou leave, please call us and we will be happy to assist you 11/05. [facility] Nursing Unit Direct Phone Number, for 11/05 contact and results of studies pending CARE [address] [place] [address] Your Care Team Attending Physician Brett Avitia DO?? Consulting Providers Brett Avitia DO?? Discharging Providers Brett Avitia DO Tests Performed Below is a partial list of the tests performed during your hospitalization. You may have had other tests and procedures not included in this list. Please discuss all test results with your provider. Basic Metabolic Panel CBC POC Hemochron ACT-LR Type and Screen Basic Metabolic Panel?? CBC?? POC ACT-LR (POC Hemochron ACT-LR)?? Type and Screen?? Primary Care Provider Sanket Fish NP? Advance Directive Health Care Proxy on File No Discharge Vitals Temperature: 97.6 DegF Height: 177 cm Pulse Rate:??47 bpm??Low Weight: 126.2 kg Respiratory Rate: 18 br/min Body Mass Index:??40.28 kg/m2??Critical Systolic Blood Pressure:??151 mm Hg??High Body surface area: 2.49 Diastolic Blood Pressure:??87 mm Hg??High ?? Oxygen Saturation: 97 % ?? Studies Pending All studies ordered during this hospital stay have been completed unless listed below. Please discuss all pending results with your provider listed above in these instructions. ?? No incomplete studies found?? What to do next Instructions From Your Doctor ?? Orders?? discharge after post procedure rest order complete, patient has ambulated and groin incision(s) arestable 30 mins post ambulation, ??06/09/25 9:22:00 EDT?? You Need to Schedule the Following Appointments Follow Up with??Brett Avitia DO Why: Please call to schedule an appointment if you do not already have one Where: ?? Discharge Medications SANKET CROCKETT :1965 Visit Date:06/09/2025 Medications: Please continue your medications until treatment is completed or stopped by your provider. Medications not listed below should be discontinued. Discuss any questions related to medications with your provider. What How Much When Instructions Next Dose Unchanged amiODARONE (amiodarone 200 mg oral tablet) STOP TAKING Unchanged apixaban (Eliquis 5 mg oral tablet) Unchanged Furosemide (furosemide 20 mg oral tablet) Unchanged Hyoscyamine (hyoscyamine 0.375 mg oral tablet, extended release) Unchanged Levothyroxine (levothyroxine 175 mcg (0.175 mg) oral tablet) Unchanged Losartan (losartan 50 mg oral tablet) Unchanged Metoprolol (Metoprolol Succinate ER 25 mg oral tablet, extended release) Unchanged Multivitamin Unchanged [place]-3 Polyunsaturated Fatty Acids (Fish Oil) Oral Unchanged Testosterone (testosterone 10 mg/ actuation transdermal gel) ?? What When Comments Stop Taking BusPIRone (busPIRone 10 mg oral tablet) Prescription Given During Visit No new medications prescribed at time of discharge.?? Laboratory Results Below is a partial list of the most recent Laboratory test results done prior to this discharge. You may have had other tests and procedures not included in this list. Please discuss all test resultswith your provider. Est Creatinine Clearance - 74.81 mL/min (06/09/2025) Basic Metabolic Panel (06/09/2025) ???Sodium - 134 mmol/L???Potassium - 3.9 mmol/L???Chloride - 96 mmol/L???Bicarbonate Level - 30 mmol/L???Anion Gap - 8 mmol/L???Glucose Level - 101 mg/dL???BUN - 15 mg/dL???Creatinine-Blood - 1.06 mg/dL???Estimated GFR Creatinine - 80 ML/MIN/1.73 M2???Calcium - 9.5 mg/dL CBC (06/09/2025) ???WBC - 4.9 k/mm3???RBC - 4.44 m/mm3???Hgb - 14.6 Gm/dL???Hct - 43.1 %???MCV - 97.1 femtoliters???MCH - 32.9 pg???MCHC - 33.9 Gm/dL???Platelet Count - 174 k/mm3???RDW-SD - 47.2 femtoliters???MPV - 9.7 femtoliters???Nucleated RBC (Automated) - 0.0 #/100 WBC'S???Abs. NRBC - 0.0 k/mm3 POC Hemochron ACT-LR (06/09/2025) ???POC ACT-LR - 323.0 seconds Type and Screen (06/09/2025) ???Blood Type - O Positive???Antibody Screen - Negative You will be contacted within 72 hours with your results. Allergies (NKA means No Known Allergies) NKA Problems Active Problems??(1) Severe obesity?? Education Materials Below is the list of Educational Leaflet Providered with your Discharge Instructions. WebMD Ignite Patient Education - M-Groin I Discharge Instructions?? WebMD Ignite Patient Education - Discharge Instructions for Catheter Ablation?? WebMD Ignite Patient Education - Anesthesia: General Anesthesia?? Valuables and Belongings I fully understand and agree that [facility] accepts no responsibility for all my personal property including clothing, toilet articles, radios, jewelry, dentures, hearing aids, rings, money, or any other property that is in my possession or is brought to me after admission. I understand certain valuables may be placed in a hospital safe for a short period of time. I understand that the hospital is not liable for loss or damage due to accident, fire, or other natural occurrence while said property is in the safe. I accept full responsibility for any personal property that I keep with me, and will not hold the hospital responsible in case of loss or disappearance. I acknowledge that i have been encouraged to send valuables and belongings home. ?? Review of Valuable and Belonging List: With patient Date for Pt to Sign Valuables/Belongings: 06/09/25 06:45:00 ?? Other Discharge Information ? Pulmonary Rehab Status?? Pulmonary Rehab Discharge Status?? Respiratory Rate: 18 br/min ? Common Emergency Awareness Tips IS IT A STROKE? Act FAST and Check for these signs: FACE Does the face look uneven? ARM Does one arm drift down? SPEECH Does their speech sound strange? TIME Call at any sign of stroke ?? Heart Attack Signs Chest discomfort: Most heart attacks involve discomfort in the center of the chest and lasts more than a few minutes, or goes away and comes back. It can feel like uncomfortable pressure, squeezing, fullness or pain. Discomfort in upper body: Symptoms can include pain or discomfort in one or both arms, back, neck, jaw or stomach. Shortness of breath: With or without discomfort. Other signs: Breaking out in a cold sweat, nausea, or lightheaded. Remember, MINUTES DO MATTER. If you experience any of these heart attack warning signs, call to get immediate medical attention! ?? Smoking can increase your chances of developing chronic health problems and can cause harmful effects to other family members in your house. If you smoke, you are strongly encouraged to quit. Please call [facility] Callision Link at [phone] or [phone] ([phone]) or log in to [email or web address] for referrals to smoking cessation programs. ?? 958 Suicide & Crisis Lifeline is available 11/05 if you or someone you know needs to find a reason to keep living. By calling 924 you'll be connected to a skilled, trained counselor at a crisis center in your area. INPATIENT DISCHARGE INSTRUCTIONS SIGNATURE PAGE CROCKETT, SANKET Location:[facility] Registration Date and Time:06/09/2025 06:00 EDT Primary Care Physician: Sanket Fish NP, Attending Physician: Brett Avitia DO, I SANKET CROCKETT, have received the above patient education materials/instructions and have verbalized understanding. If ambulance or transport services are being used I further acknowledge being given achoice of service. ?? If you need to contact me, please call me at this number: . Patient/Water Softener Installer Name: Patient/Water Softener Installer Signature: Relationship to Patient: Witness Name/Signature: Date: * Yesenia Burkett RN: PERFORM Event Display: Patient Education Leaflets Authored Date: [id number] M-Groin I Discharge Instructions ?? 179 Groin Discharge Instructions No heavy lifting over 10 pounds (for example: gallon of milk) 1 week following the procedure; gradually increase normal activity over the next 5 days. Avoid straining/pushing when moving bowels You may feel like resting more after your procedure. Slowly start to do more each day. Rest when you feel it is needed. Make sure to look at your procedure site every day until it is completely healed. You may see bruising at the puncture site and that is common after the procedure. You may shower the day after your procedure. Remove the band aid before showering. Wash the area gently with soap and water. Leave open to air. Do not take tub baths, hot tubs, soaking of the puncture site or swimming for 1 week. Do not put any creams, powders or lotions on your puncture site You may resume sexual activity the day after your procedure; avoid bending the hip on ?? the side of the groin puncture excessively and any strenuous positions for 1 week. Call your doctor if your procedure site develops any of the following: ??? New onset severe pain ??? New onset lump or swelling ??? Bleeding that does not stop with lightpressure ? * Yesenia Burkett RN: PERFORM Event Display: Patient Education Leaflets Authored Date: [id number] Discharge Instructions for Catheter Ablation ?? [address] Discharge Instructions for Catheter Ablation You have had a procedure called catheter ablation. It was??used to treat an abnormal heartbeat (arrhythmia). This procedure destroyed (ablated) the cells in your heart that were causing your heart rhythm problem. During the procedure, the health care provider put a thin,??flexible??wire (catheter)??into a blood vessel in your groin. You may have also had a catheter placed through a vein in your neck. The provider then threaded the catheter to your heart to find the area of concern and treat theproblem. Home care Here are recommendations for care at home: ??? Make arrangements for someone to drive you home after the procedure. You will be given medicine to relax you (sedation). Your health care provider may tell you not to??drive for 24 to 48 hours after the procedure. ??? Expect to be able to go back to your normal daily activities in the next 1 to 2 days. These??include walking, climbing stairs, and doing light eeler. ??? Don't do any heavy physical activity or excessive bending at the waist for several days after the procedure. This will allow your body to heal. ??? Don't lift heavy objects until your provider tells you to. Talk with your provider about any specific limits you need to follow. ??? Ask your provider when you can??return to work. ??? Check the area where the catheter was inserted for signs of infection every day for a week. Keep the site dry as instructed. Signs of infection include redness, swelling, drainage, or warmth at the incision site.??Take your temperature if you feel you may have a fever. Let your provider know if you develop any symptoms of infection orsee any discharge from your site. ??? Take your medicines exactly as directed. Don???t skip doses. You may need to make some changes in your medicines because of the ablation procedure. Be sure to goover your medicine instructions with your provider before you are discharged. ??? Learn to take your own pulse. Keep a record of your results. Ask your provider which readings mean that you need medical attention. ?? Follow-up care Make a follow-up appointment as directed by your health care provider. Your provider will check howthe catheter site is healing. In many cases, 1 ablation is enough to treat an arrhythmia. But sometimes the problem comes back or another problem is found. If this happens, you may need a second procedure. ?? When to call your doctor Contact your health care provider right away if you have: ??? Redness, pain, swelling, bleeding, or drainage from the area where the catheter was put in. ???A temperature of 100.4??F (38??C) or higher, or as directed by your provider. ??? Sudden coldness, pain, or numbness in the leg or arm where the catheter was put in. ??? Nausea or vomiting. ??? Difficulty swallowing, excessive pain when swallowing, or vomiting blood. ??? A heart rate that stays high. Note: Ask your provider what to expect about your heartbeat. Sometimes the irregularity goes away right after the procedure. Other times it may take longer to go away. ?? Call 911 Call 911 right away if you have: ??? Bleeding from the puncture site that does not slow down when you press on it firmly. ??? Chest pain, shortness of breath, or dizziness. ??? Sudden numbness or weakness, especially on one side of the body, or difficulty speaking. ??? A sudden loss of consciousness/responsiveness. ?? Last Reviewed Date: 2024 00:00:00 ?? [id number] [employer]. All rights reserved. This information is not intended as a substitute for professional medical care. Always follow your healthcare professional's instructions. ?? * Yesenia Burkett RN: PERFORM Event Display: Patient Education Leaflets Authored Date: [id number] Anesthesia: General Anesthesia ?? Anesthesia: General Anesthesia You???re due to have surgery. During surgery, you???ll be given medicine called anesthesia or anesthetic. This will keep you comfortable and pain-free. Your??anesthesia provider??will use general anesthesia . You are watched continuously during your procedure by your anesthesia provider. What is general anesthesia? General anesthesia puts you into a state like deep sleep. It goes into the bloodstream (IV anesthetics), into the lungs (gas anesthetics),or both. You feel nothing during the procedure. You won't remember it either. During the procedure, the anesthesia provider monitors you continuously. They trackyour heart rate and rhythm, blood pressure, breathing, and blood oxygen. ??? IV anesthetics. IV anesthetics are given through an IV (intravenous) line in your arm. They???re often given first. This is so you're asleep before a gas anesthetic is started. Some kinds of IV anesthetics ease pain. Others relax you. Your healthcare provider will decide which kind is best in your case. ??? Gas anesthetics. Gas anesthetics are breathed into the lungs. They're often used to keep you asleep. They can be given through a face mask. Or they can be given through a tube placed in your voice box (larynx) or breathing tube (trachea). o Face mask. Your anesthesia provider will most likely place the face maskover your nose and mouth while you???re still awake. You???ll breathe oxygen through the mask as your IV anesthetic is started. Gas anesthetic may be added through the mask. o Tube in the larynx or trachea. The tube will be inserted into your throat after you???re asleep. ?? Anesthesia tools and medicines You will likely have: ??? IV anesthetics. These are put into an IV line into your bloodstream. ??? Gas anesthetics.??You breathe these??anesthetics??into your lungs. Then they pass into your bloodstream. ??? Pulse oximeter. This is a small clip that's attached to??the end of your finger. It measures your blood oxygen level. ??? Electrocardiography leads (electrodes). ??These are small sticky padsthat are placed??on your chest. They record your heart rate and rhythm. ??? Blood pressure cuff. This reads your blood pressure. ?? Risks and possible complications General anesthesia has some risks. These include: ??? Breathing problems ??? Upset stomach (nausea)and vomiting ??? Sore throat or hoarseness (usually temporary) ??? Allergic reaction to the anesthetic ??? Irregular heartbeat (rare) ??? Cardiac arrest (rare) ?? Anesthesia safety ??? Follow any directions you're given for not eating or drinking before your procedure. ??? Tell your healthcare provider what medicines??you take. This includes prescription and [id number] medicines. It also includes vitamins, herbs, and other supplements. You'll be asked when those were last taken. ??? Have a trusted adult drive you home after the procedure. ??? For thefirst 24 hours after your surgery: o Don't drive or use heavy equipment. o Don't make important decisions or sign legal documents. If important decisions or signing legal documents is necessary during the first 24 hours after surgery, have a trusted family member or spouse act on your behalf. o Don't drink alcohol. o Have??a responsible adult??stay with you.??They can watch for problems and help keep you safe. ?? Last Reviewed Date: 2024 00:00:00 ?? [id number] [employer]. All rights reserved. This information is not intended as a substitute for professional medical care. Always follow your healthcare professional's instructions. ?? EKG study * Event Display: ECG 12-Lead Authored Date: Please click on pdf link to open report * Event Display: ECG 12-Lead Authored Date: Ventricular Rate: 49 BPM Atrial Rate: 49 BPM P-R Interval: 214 ms QRS Duration: 110 ms Q-T Interval: 504 ms QTC Calculation(Bazett): 455 ms P [place]: 68 degrees R [place]: -25 degrees T [place]: 55 degrees Sinus bradycardia with 1st degree A-V block Otherwise normal ECG When compared with ECG of 09-Jun-2025 09:40, Premature ventricular complexes are no longer Present Confirmed by CHALHOUB, DAVID ([id number]) on 06/09/2025 1:15:55 PM [place]: DAVID CHRISTIANSEN * Event Display: ECG 12-Lead Authored Date: Please click on pdf link to open report * Event Display: ECG 12-Lead Authored Date: Ventricular Rate: 53 BPM Atrial Rate: 53 BPM P-R Interval: 214 ms QRS Duration: 112 ms Q-T Interval: 490 ms QTC Calculation(Bazett): 459 ms P [place]: 64 degrees R [place]: -27 degrees T [place]: 52 degrees Sinus bradycardia with 1st degree A-V block with occasional Premature ventricular complexes Otherwise normal ECG Confirmed by DAVID CHRISTIANSEN ([id number]) on 06/09/2025 12:20:56 PM [place]: DAVID CHRISTIANSEN * Event Display: ECG 12-Lead Authored Date: Please click on pdf link to open report * Event Display: ECG 12-Lead Authored Date: Ventricular Rate: 44 BPM Atrial Rate: 44 BPM P-R Interval: 212 ms QRS Duration: 108 ms Q-T Interval: 500 ms QTC Calculation(Bazett): 427 ms P [place]: 55 degrees R [place]: -38 degrees T [place]: 38 degrees Marked sinus bradycardia with 1st degree A-V block Left axis deviation Low voltage QRS Inferior infarct , age undetermined Cannot rule out Anterior infarct (cited on or before 15-Dec-2024) Abnormal ECG When compared with ECG of 15-Dec-2024 08:57, No significant change was found Confirmed by CANDIE FLORES MD ([id number]) on 06/09/2025 3:50:43 PM [place]: CANDIE FLORES MD Patient Care team information Care Team Personnel Name: Sanket Fish NP Position: Reference Physician Member Role: PCP Address: [address] [place] [address]- Telecom: Care Team Related Persons Name: RUBIO CROCKETT Insurance Providers Guarantor name: SANKET CROCKETT Health Plan Information #: 1 Payer: [facility] Payer Identifier: NA Member Number: [id number] Group Number: [id number] Subscriber Identifier: [id number] Relationship to Subscriber: self Coverage Type: NA Coverage Verification Date: NA Telecom: NA Address: NA
--- NOTE | 2025-06-12 09:34 | A.OFFVIS_ITS ---
Vital Signs 06/12/25 09:35 Height 5 ft 11 in Weight 280 lb 6.848 oz BMI 39.1 BP 122/72 Blood Pressure Location Lt brachial Position Sitting Pulse 61 Pulse Source Pulse Oximeter Intake Visit Reasons: 4 mth s/p; labls Intake Note: 4 mth f/up Sales Correspondence Clerk Required: No Accompanied by: Self / Same As Patient Allergies No Known Allergies Allergy (Verified 05/16/25 11:26) Medication List - Last Reconciled 06/12/25 by Madhav Cm MD apixaban (Eliquis) 5 mg PO BID furosemide (Lasix) 20 mg PO QAM levothyroxine 175 mcg PO QAM losartan 50 mg See Protocol PO QAM metoprolol succinate ER (Toprol XL) 25 mg PO QAM omeprazole magnesium (Prilosec OTC) 20 mg PO BID 90 days sertraline 25 mg PO DAILY testosterone 10 mg/0.5 gram /actuation 20 mg topical QAM testosterone topical HPI Comments Details: 60-year-old gentleman who is here for follow-up. He was seen in the hospital in September when he presented for outpatient procedure and was noticed to be in AFib with RVR. He was admitted and rate controlled initially but echocardiography showed EF of 30 35%. After discussion he underwent BRICE cardioversion. He was loaded with amiodarone and was sent home with amiodarone which he is taking 200 mg daily at this point along with Toprol-XL. He has noticed his heart rate to be slow at times in 40s to 50s. Since discharge he has done significantly well and has made significant lifestyle changes including diet and exercise. He has stopped drinking alcohol and caffeine. He is swimming 45 minutes every day. No exertional symptoms. He has gallstones and has been experiencing some abdominal pains and occasionally while getting abdominal pain he gets some chest pains. These symptoms are clearly linked with abdominal pain and during exercise like swimming he does not get any chest discomfort. He is here to discuss further management of atrial fibrillation as well as whether he can get surgery for gallstones. 01/30/2025: Mariusz is here for follow-up. Repeat echocardiography has shown resolution of LV dysfunction and is EF is back to normal. He is on amiodarone for rhythm control strategy and continues to be in sinus rhythm at this point. Blood pressure is well controlled. He has seen in electrophysiology at [facility] and will be considering ablation in April or May. He had gallstones and underwent surgery and is recovering from that. He continues to have some right-sided upper abdominal and lower chest pain and back pain since the surgery. He has followed with general surgery and had blood workup done to rule out any infections. He is denying any fevers or chills at this point. Compliant with medications. Denying any other symptoms currently. 06/12/25: Mariusz is here for follow-up. Underwent ablation last week and has been taken off the amiodarone. He is taking apixaban 5 mg twice a day regularly he is on Toprol-XL and losartan. He is saying he ran out of Lasix and is asking whether he should resume the Lasix. [facility] Medical History History of cardioversion History of stress test RUQ pain History of cardioversion Cardiomyopathy PAF (paroxysmal atrial fibrillation) Anxiety Leukopenia Renal calculi Gout Hypertension CANDY (obstructive sleep apnea) Hypothyroid Hypogonadism Surgical History History of cardiac ablation for atrial fibrillation H/O endoscopy Hx of cholecystectomy H/O vascular surgery Hx of colonoscopy Social History Household Members: Family Housing: House Are you a primary child care education coordinator to a significant other at home: No Do you presently have visiting nurse or other home services: No Alcohol intake: current Alcohol intake frequency: a few times a month Alcohol type: beer Comment: exercises regularly Patient Tobacco Use Status: Never used Tobacco e-Cigarette/Vaping Use: Never Used Second Hand Smoke Exposure: No Advance Directives Date on File: 11/15/21 service: No Current occupational status: employed 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 Current occupational exposures/hazards: No Cognitive needs: No Hearing needs: No Vision needs: No Review of Systems Const Denies chills, Denies fatigue, Denies fever(s), Denies frequent falls, Denies weakness, Denies weight gain and Denies weight loss ENT Denies dizziness Card Denies chest pain, Denies leg edema, Denies lightheadedness, Denies palpitations, Denies dyspnea and Denies dyspnea on exertion Resp Denies cough, Denies dyspnea and Denies dyspnea on exertion GI Denies hematochezia Musc Denies abnormal gait, Denies muscle weakness, Denies numbness, Denies radiating pain into limb and Denies tingling Neuro Denies abnormal gait, Denies dizziness, Denies frequent falls, Denies numbness, Denies tingling and Denies weakness Endo Denies fatigue and Denies palpitations Physical Exam Vital Signs: Last Vital Signs Pulse 61 06/12/25 09:35 BP 122/72 06/12/25 09:35 BMI result Body Mass Index 39.1 GENERAL APPEARANCE: in no acute distress, pleasant. NECK: no carotid bruit, no jugular venous distention. SKIN: no suspicious lesions, warm and dry. HEART: no murmurs, regular rate and rhythm. LUNGS: clear to auscultation bilaterally. ABDOMEN: soft, nontender. EXTREMITIES: Right more than left lower extremity edema. PERIPHERAL PULSES: equal. NEUROLOGIC: No gross deficits, AAO X 3 Assessment & Plan Assessment & Plan (1) PAF (paroxysmal atrial fibrillation): Code(s): I48.0 - Paroxysmal atrial fibrillation Category: Medical Plan Pleasant 60 year gentleman with paroxysmal atrial fibrillation, alcohol use and cardiomyopathy. He was started on amiodarone after cardioversion and referred for ablation which she completed last week. He is now off the amiodarone. He is doing well and recovering well at this stage. He is on losartan and metoprolol. His blood pressure is well controlled. He has lower extremity edema in his asking whether Lasix can be stopped. I have advised him to check his weight daily and if he suddenly gains want to do lb over 24 hours then this is likely water weight and he should resume his Lasix at that stage. Amiodarone has been stopped and he is aware of that. Rest of the medications he will continued. I have advised him also not to interrupt his apixaban due to stroke risk. Follow-up in 4 months. He was borderline anemic and we will do some blood workup before next visit. Thank you for allowing me to participate in the care of your patient. Please feel free to contact me if you have any questions. Orders: Orders Complete Blood Count no Diff 4 Months I48.91 - Unspecified atrial fibrillation Basic Metabolic Panel 4 Months I48.91 - Unspecified atrial fibrillation Coding Level of Care Code Est Pt Level 4 (27912) Diagnoses PAF (paroxysmal atrial fibrillation) I48.0
[2025-06-12 09:35] VITALS: BP 122/72; PULSE 61; BMI 39.1
--- OUTSIDE RECORDS SUMMARY | 2025-06-12 10:20 | XMS_ITS | Clinical Summary ---
Author Organization [facility] Address [address] [place] [phone] Phone Care Team Providers Care Record Tabulating Clerk Name Role Phone Mariusz Fish [employer]CHANDISING MANAGER Primary Care Provider + Allergies No known [...] Department Care Team Description 04/12/2025 Orders Only [facility] [address] [place] [address] [place] [address] Gunjan Leal MD Hypogonadism male (Primary Dx) 04/10/2025 Orders Only [facility] Endocrinology [place] [address] [facility] [place] RAJESH [place] [id number] Gunjan Leal MD 04/07/2025 Telephone [facility] [address] [place] [address] [place] [address] Gunjan Leal MD Out of stock Testosterone [...] 10:00 AM EDT Office Visit [facility] [address] [place] [address] [place] [address] Gunjan Leal MD [address] [place] [phone] [email or web address] Health Maintenance Due Date Last Done Comments [...] MD LAB BLOOD ORDERABLES F inal Result [facility] [address] [place] [address] from Last 3 Months or Most Recently Relevant to Health Maintenance Insurance [facility] [place] [address] [place] [address] [facility] Care Teams Record Tabulating Clerk Relationship Specialty Start Date End Date Mariusz Fish NP [address] [facility] [place] [address] PCP - General Nurse Practitioner 12/11/22 Additional Source Comments The information contained in this document represents components of the legal health record. It is not the complete legal health record.[facility]
== END 2025-06-12 10:13 | disposition home or self-care (01) ==
LOC: HO.HCS 09:31
PROVIDERS: PCP Nurse Practitioner Family; Visit Provider Internal Medicine Cardiovascular Disease
DX: I48.0 Paroxysmal atrial fibrillation (principal)
CPT/HCPCS: 99214

== ENCOUNTER 2025-07-18 09:15 | Outpatient (AMB) | payer BC, SELFPAY ==
[2025-07-18 09:49] VITALS: BMI 40.4
--- NOTE | 2025-07-18 09:49 | MHC.AMNUTRGE ---
VS Expanded 07/18/25 09:49 07/18/25 09:54 Height 5 ft 11 in 5 ft 11 in Weight 289 lb 14.526 oz 290 lb BMI 40.4 40.4 Intake Visit Reasons: Obesity Allergies No Known Allergies Allergy (Verified 05/16/25 11:26) Nutrition Presentation Details: Pt presents for MNT for obesity food frequency fruits: 0-1/d vex/wk fish -- dairy: 3-4/d beverages: water/juices/milk physical activity ADL BS Monitoring Most Recent Diabetes Results: Creatinine, (0.5-1.4) 0.97 mg/dL 04/15/25 BUN, (9-16) 16 mg/dL 04/15/25 Sodium, (135-145) 137 mmol/L 04/15/25 Potassium, (3.3-5.1) 4.0 mmol/L 04/15/25 Chloride, (96-108) 100 mmol/L 04/15/25 Carbon Dioxide, (22-29) 25 mmol/L 04/15/25 Calcium, (8.4-10.2) 8.7 mg/dL 04/15/25 AST, (5-37) 27 U/L 05/31/25 ALT, (0-40) 21 U/L 05/31/25 Total Protein, (6.5-8.0) 7.0 g/dL 05/31/25 Albumin, (3.5-5.0) 4.3 g/dL 05/31/25 HHG-Dnosznp-Ei.Jeor Equation Height: 5 ft 11 in Weight: 290 lb Resting Metabolic Rate: 2146.11 Calculated Activity Level: Sedentary Calories Needed to Maintain Weight: 2575.33 Diagnosis Nutrition problem #1: overweight/obesity As related to (etiology) #1: diagnosis As evidenced by (sign/symptom) #1: knowledge deficit of diet [facility] Medical History History of cardioversion History of stress test RUQ pain History of cardioversion Cardiomyopathy PAF (paroxysmal atrial fibrillation) Anxiety Leukopenia Renal calculi Gout Hypertension CANDY (obstructive sleep apnea) Hypothyroid Hypogonadism Surgical History History of cardiac ablation for atrial fibrillation H/O endoscopy Hx of cholecystectomy H/O vascular surgery Hx of colonoscopy Social History Household Members: Family Housing: House Are you a primary animal care technician to a significant other at home: No Do you presently have visiting nurse or other home services: No Alcohol intake: current Alcohol intake frequency: a few times a month Alcohol type: beer Comment: exercises regularly Patient Tobacco Use Status: Never used Tobacco e-Cigarette/Vaping Use: Never Used Second Hand Smoke Exposure: No Advance Directives Date on File: 11/15/21 service: No Current occupational status: employed 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 [employer] Current occupational exposures/hazards: No Cognitive needs: No Hearing needs: No Vision needs: No Assessment & Plan Assessment & Plan (1) Obesity (BMI 30-39.9): Code(s): E66.9 - Obesity, unspecified Category: Medical Plan: current wt: 132 kg ( 08/12 ) est kcal needs as per MSJ: 2600 est protein needs as per 1 g/kg BW: 130 est fluid needs as per 30 ml/kg BW: 3900 Recommended fiber > 12 g /day and gradually increase up to 25-28 g /day or as tolerated Nutrition topics discussed : Reviewed (R), Pt verbalized understanding (V) , not applicable (N/A) R, A : Healthy Plate Method Concept: R, : Carbohydrates: food sources of carbohydrates, relationship of carbohydrates to blood glucose, fatty liver GI health. Recommended total amount of carbohydrates per meals and snack. Differences between simple carbohydrates and complex carbohydrates R, : Lean protein foods including vegan , vegetarian sources of protein. Benefits of protein (including but not limited to healing, nutritional value , benefits in weight loss, glucose control R, V, N/A: Fats : Source of fats, benefits of fats. Difference between saturated and unsaturated fats. Saturated fats and its contribution to inflammation R, V, N/A: Fiber: food sources and role of fiber in the diet (including but not limited to its role as a prebiotic, benefits in constipation, role in IBS , role in glucose control and cholesterol level) R, V, N/A: Hydration: role of hydration and prevention of dehydration or over hydration. Foods and water content. R, V, N/A: Vitamins and Minerals in foods and supplements R, V, N/A: Interpreting food labels, including serving size, macronutrients, vitamins, minerals, allergens, ingredient list , % daily value Patient Instructions: HAve a sand for lunch- see meal ideas for low fat food sand on whole grain bread/wraps reduce total carb in evening to 60 g or less - see meal options Coding Level of Care Code Nutr Indiv Intake (21885) Diagnoses Obesity (BMI 30-39.9) E66.9 Time Spent (min) 30
--- OUTSIDE RECORDS SUMMARY | 2025-07-18 10:02 | XMS_ITS | Clinical Summary ---
Author Organization [facility] Address [address] [place] [phone] Phone Care Team Providers Care Item Processing Clerk Name Role Phone Mariusz Fish COAL MINE INSPECTOR Primary Care Provider + Allergies No known [...] or as otherwise clinically indicated. Essential hypertension Family History Medical History Relation Comments Thyroid [...] 10:00 AM EDT Office Visit [facility] [address] [place] [address] Gunjan Leal MD [address] [place] [phone] [email or web address] Health Maintenance Due Date Last Done Comments [...] - Risk 60-74 years 1-dose series) 2024 BLOOD PRESSURE 02/09/2025 08/11/2024 INFLUENZA VACCINE (#1) 2025 COVID-19 VACCINE (1 - 2023-2 5 season) 2025 TSH LEVEL 08/03/2025 08/03/2024, 03/19/2023, 03/10/2023 SMOKING [...] MD LAB BLOOD ORDERABLES F inal Result Performing Organization Address City/State/[facility] Co de Phone Number [facility] [address] [place] [address] from Last 3 Months or Most Recently Relevant to Health Maintenance Insurance [employer] [facility] [place] [address] [facility] FEDERAL Care Teams Item Processing Clerk Relationship Specialty Start Date End Date Mariusz Fish NP [address] [place] [address] PCP - General Nurse Practitioner 12/11/22 Additional Source Comments The information contained in this document represents components of the legal health record. It is not the complete legal health record.[facility]
[2025-07-27 21:43] VITALS: BMI 40.4
== END 2025-07-18 10:23 | disposition home or self-care (01) ==
LOC: HO.ENCR 09:16
PROVIDERS: PCP Nurse Practitioner Family; Visit Provider Dietitian, Registered
DX: E66.9 Obesity, unspecified (principal)

== ENCOUNTER → 2025-07-18 09:15 | Outpatient (BNVA) | payer BC, SELFPAY | PROVIDERS: PCP Nurse Practitioner Family; Visit Provider Dietitian, Registered | DX: Z71.3 Dietary counseling and surveillance (principal); E66.9 Obesity, unspecified | CPT/HCPCS: 97802 ==